=== PATIENT | female | born 1950 | race Caucasian/White ===

== ENCOUNTER 2016-06-19 12:16 | Day surgery (SDC) | payer BC ==
[2016-06-13 16:48] VITALS: BMI 28.3
[~2016-06-19 12:16] MED LIST: BUPIVACAINE HCL/PF 0.5% (5MG/ML) 10 ML VIAL IJ ONE; LIDOCAINE HCL 1%, 10 MG/ML (20ML VIAL) IJ ONE
[2016-06-19] MEDS ORDERED: LIDOCAINE HCL 1%, 10 MG/ML (20ML VIAL) ONE (13:23)
[2016-06-19] MEDS ORDERED: BUPIVACAINE HCL/PF 0.5% (5MG/ML) 10 ML VIAL ONE (13:24)
--- NOTE | 2016-06-19 13:43 | HP ---
Satellite H - Chief Complaint Chief Complaint: right hand pain/numbness - Past Medical History Allergies/Adverse Reactions: Allergies Allergy/AdvReac Type Severity Reaction Status Date / Time levofloxacin [From Levaquin] Allergy "HIVES AND Verified 06/19/16 13:05 TROUBLE BREATHING" SEAFOOD Allergy "THROAT Uncoded 06/19/16 13:05 CLOSES" - Current Medications Current Medications: Medication Instructions Recorded Naproxen [Naprosyn -] 500 mg PO BID #14 tablet 04/15/16 Acetaminophen [Tylenol] 650 mg PO PRN PRN 06/13/16 Insulin Degludec [Tresiba 10 unit SQ ACBK 06/13/16 Flextouch U-100] Insulin Degludec [Tresiba 25 unit SQ ACDIN 06/13/16 Flextouch U-100] Rosuvastatin Calcium [Crestor] 5 mg PO DAILY 06/13/16 Valsartan [Diovan] 160 mg PO DAILY 06/13/16 Hydrocodone/Acetaminophen 1 each PO Q6H #40 tablet MDD 4 06/19/16 [Hydrocodon-Acetaminoph 7.5-325] Satellite Physical Exam - Physical Examination Vital Signs: Vital Signs Period Temp Pulse Resp BP Sys/Monahan Pulse Ox Last 24 Hr 97.9 F 99 16 146/72 98 General Appearance: Well Nourished, Well Developed, Alert & Oriented x3 ENT: Clear Lung: Normal air movement Heart: Regular rate & rhythm Extremities: Other (right hand- + tinels, + phalens EMG + cts) Neurological: Intact, Alert, Oriented Satellite Impression/Plan - Impression/Plan Impression: right cts Operative Procedure: right ctr Date to be Performed: 06/19/16
[2016-06-19] MEDS ORDERED: LIDOCAINE HCL 2% (20ML MULTI-DOSE VIAL) NR ONE (14:01)
[2016-06-19] MEDS ORDERED: ceFAZolin SODIUM 1 GM VIAL ONE (14:01)
[2016-06-19] MEDS ORDERED: MIDAZOLAM HCL 2 MG/2 ML SINGLE DOSE VIAL ONE ×2 (14:02→14:19)
[2016-06-19] MEDS ORDERED: PROPOFOL 20 ML ONE ×2 (14:02→15:27)
[2016-06-19] MEDS ORDERED: ONDANSETRON 4 MG/2 ML VIAL IVPUSH PRN (14:25)
[2016-06-19] MEDS ORDERED: oxyCODONE HCL 5 MG TABLET PO PRN (14:25)
[2016-06-19] MEDS ORDERED: ACETAMINOPHEN 325 MG TABLET (FP) PO PRN (14:25)
[2016-06-19] MEDS ORDERED: LACTATED RINGERS SOLUTION 1,000 ML IV SCH (14:30)
[2016-06-19] MEDS ORDERED: ceFAZolin SODIUM 1 GM VIAL IVPB ONE (14:50)
--- NOTE | 2016-06-19 15:36 | OP ---
Operative Note - Note: Operative Date: 06/19/16 Pre-Operative Diagnosis: right CTS Operation: right CTR, tenosynovectomy Post-Operative Diagnosis: Same as Pre-op Surgeon: Jason Krishnan Anesthesiologist/ELDER ASSISTANT: Leny Mills Anesthesia: General, Local Specimens Removed: tenosynovium Estimated Blood Loss (mls): 0 Blood Volume Replaced (mls): 0 Fluid Volume Replaced (mls): 500 Operative Report Dictated: Yes
--- NOTE | 2016-06-19 16:31 | SPEC ---
DATE OF OPERATION: 06/19/2016 PREOPERATIVE DIAGNOSIS: Right carpal tunnel syndrome. POSTOPERATIVE DIAGNOSIS: Right carpal tunnel syndrome. PROCEDURE: Right carpal tunnel release and tenosynovectomy. SURGEON: Jason Krishnan MD CASTING ROOM HELPER: Leny Mills CRNA SPECIMENS: Tenosynovium, right wrist. DRAINS: None. COMPLICATIONS: None. FLUID REPLACEMENT: 500 mL INDICATIONS: This patient is a 65-year-old femalewith a preoperative diagnosis of a right carpal tunnel syndrome. After understanding the potential risks, complications, alternatives, and benefits of surgical versus nonsurgical treatment, the patient elected to undergo this procedure. DESCRIPTION OF PROCEDURE: The patient was brought to the operating room, peripheral IV placed and intravenous sedation was given. One gram of intravenous Ancef was given. MAC anesthesia was induced. A tourniquet was applied to the right upper arm and the right upper extremity was prepped and draped in sterile fashion. The entire case was done under 3.8 loupe magnification. A marking pen was utilized to mukesh out a longitudinal incision in an already existing skin crease. Twenty mL of 0.5% Marcaine mixed with 1% Lidocaine was injected in and around the surgical incision. The right upper extremity was elevated, exsanguinated with an Esmarch bandage and the tourniquet inflated to 250mm of mercury. A No. 15 scalpel blade was utilized to cut down through the skin. Subcutaneous hemostasis was achieved with the bipolar cautery. Dissection was done through the superficial palmar fascia. Self-retaining retractors were placed into the wound. Under direct visualization, the transverse carpal ligament was transected with a No. 15 scalpel blade, exposing the median nerve and the contents of the carpal tunnel. The distal and proximal extents of the release were completed with a Littler scissor and checked with irrigation and my small finger. They were seen to be complete. Limited dissection was done on the radial side of the median nerve and more extensive dissection was done on the ulnar side of the median nerve. The patients nerve was seen to be quite compressed by epineurium and therefore a limited epineurotomy was performed. A Ragnell retractor was used to gently retract the median nerve in a radial direction. The patient had a lot of tenosynovitis and therefore a limited tenosynovectomy was performed off of all 9 flexor tendons. This was passed off the field as tenosynovium right wrist. The floor of the carpal tunnel was checked. There were no abnormal masses or ganglion cysts. The area was copiously irrigated and washed out and closure begun. Undyed 4-0 Vicryl was used to close the deep dermal layer. Final skin reapproximation was done with horizontal mattress 4-0 nylon sutures. The area was then washed and dried, covered with Xeroform, 4x4s, fluffs between the fingers, Webril and a 4-inch plaster roll was utilized to make a volar splint, which was then wrapped with Ivan and Coban. The tourniquet was taken down after a total tourniquet time of 18 minutes. There were no complications during the case. The patient tolerated the procedure well and was brought to the ambulatory recovery room in stable condition. Ignacio [id number]
[2016-06-19 16:47] VITALS: TEMP 98.4
[2016-06-19 17:40] VITALS: BP 123/67; PULSE 88
--- NOTE | 2016-06-22 12:49 | PATH ---
Surgical Pathology Report Patient Name: IRIS ROMAN [facility]. Rec. #: [id number] /Age/Gender: 1950 (Age: 65) / F Account: [id number] Location: [facility] SURGICAL Taken: 06/19/2016 Received: 06/20/2016 Reported: 06/22/2016 Physicians: Jason Krishnan M.D. Specimen(s) Received RIGHT TENOSYNOVIUM Clinical History Carpel tunnel right syndrome Final Diagnosis SOFT TISSUE, RIGHT HAND, TENOSYNOVIUM, CARPAL TUNNEL RELEASE: TENOSYNOVIAL FIBROCONNECTIVE TISSUE WITH FOCAL MYXOID DEGENERATION. Electronically Signed Ross Reeves M.D. Gross Description Received in formalin, labeled "right tenosynovium" is a 1.6 x 1.0 x 0.3 cm aggregate of mcneill-yellow, irregular portions of soft tissue, consistent with tenosynovium. The specimen is submitted in toto in one cassette. 06/20/201606/20/2016
== END 2016-06-19 17:45 | disposition home or self-care (01) ==
LOC: JASU-SURG 12:16
PROVIDERS: ATTEND Orthopaedic Surgery
PROC: 0LB50ZZ Excision of Right Lower Arm and Wrist Tendon, Open Approach (ICD-10-PCS; 2016-06-19)
PROC: 01N50ZZ Release Median Nerve, Open Approach (ICD-10-PCS; principal; 2016-06-19 14:30)
DX: G56.01 Carpal tunnel syndrome, right upper limb (principal); M65.831 Other synovitis and tenosynovitis, right forearm
CPT/HCPCS: 88304-TC; 94760

== ENCOUNTER 2018-04-23 14:29 | Emergency (ER) | payer OTHER, BC ==
[2018-04-23 14:38] VITALS: BP 144/83; PULSE 110; TEMP 98; BMI 30.8
--- NOTE | 2018-04-23 14:38 | PDOC ---
Rapid Medical Evaluation Time Seen by Provider: 04/23/18 14:36 Medical Evaluation: Allergies Allergy/AdvReac Type Severity Reaction Status Date / Time levofloxacin [From Levaquin] Allergy "HIVES AND Verified 06/19/16 13:05 TROUBLE BREATHING" SEAFOOD Allergy "THROAT Uncoded 06/19/16 13:05 CLOSES" 04/23/18 14:36 The patient presents with: left calf pain, recent air travel 5 days ago, no hx dvt, no sob, no cp On brief exam: - homans, no edema, no erthyema, 2+ pedal pulse the patient was ordered for: duplex of LLE The patient to proceed to the emergency department Discharge Disposition - Diagnosis Pain of left calf - Referrals - Patient Instructions - Post Discharge Activity
--- NOTE | 2018-04-23 15:23 | PDOC ---
History of Present Illness - General Chief Complaint: Pain Stated Complaint: PCP SENT/PAIN Time Seen by Provider: 04/23/18 14:36 Exam Limitations: No Limitations - History of Present Illness Initial Comments: 04/23/18 15:33 Patient was sent from 's office for evaluation of left lower extremity pain. Onset of pain 2 weeks ago in [place] where she returned 5 days ago. States pain has progressively worsened and feels leg is swollen. Was sent for ultrasound of leg to rule out DVT. Reports that no medications Tylenol or Motrin has been helping with pain relief. Denies shortness of breath, fevers, any recent injury or illness. No history of DVT. Occurred: reports: last week Severity: reports: mild, moderate Pain Location: reports: lower extremity (lef tleg) Loss of Consciousness: no loss of consciousness Associated Symptoms (Fall): denies symptoms Past History - Travel Traveled outside of the country in the last 30 days: No Close contact w/someone who was outside of country & ill: No - Past Medical History Allergies/Adverse Reactions: Allergies Allergy/AdvReac Type Severity Reaction Status Date / Time levofloxacin [From Levaquin] Allergy "HIVES AND Verified 04/23/18 14:38 TROUBLE BREATHING" SEAFOOD Allergy "THROAT Uncoded 04/23/18 14:38 CLOSES" Home Medications: Ambulatory Orders Naproxen [Naprosyn -] 500 mg PO BID #14 tablet 04/15/16 Acetaminophen [Tylenol] 650 mg PO PRN PRN 06/13/16 Insulin Degludec [Tresiba Flextouch U-100] 10 unit SQ ACBK 06/13/16 Insulin Degludec [Tresiba Flextouch U-100] 25 unit SQ ACDIN 06/13/16 Rosuvastatin Calcium [Crestor] 5 mg PO DAILY 06/13/16 Valsartan [Diovan] 160 mg PO DAILY 06/13/16 Hydrocodone/Acetaminophen [Hydrocodon-Acetaminoph 7.5-325] 1 each PO Q6H #40 tablet MDD 4 06/19/16 Cyclobenzaprine HCl [Flexeril -] 10 mg PO TID 04/23/18 Methylprednisolone [Medrol Dose Garry] 4 mg PO ASDIR 04/23/18 COPD: No Diabetes: Yes GI Disorders: Yes (DIVERTICULOSIS) HTN: Yes Hypercholesterolemia: Yes - Surgical History Cholecystectomy: Yes Orthopedic Surgery: Yes (BILATERAL ARTHROSCOPY KNEE) - Suicide/Smoking/Psychosocial Hx Smoking Status: Yes Smoking History: Former smoker Have you smoked in the past 12 months: Yes Number of Cigarettes Smoked Daily: 10 If you are a former smoker, when did you quit?: 2017 Information on smoking cessation initiated: Yes 'Breaking Loose' booklet given: 04/23/18 Hx Alcohol Use: No Drug/Substance Use Hx: No Substance Use Type: None Hx Substance Use Treatment: No Review of Systems - Review of Systems Able to Perform ROS?: Yes Is the patient limited Vincentian proficient: Yes Constitutional: Yes: Symptoms Reported, See HPI. No: Fever, Malaise Musculoskeletal: Yes: Symptoms Reported, See HPI, Joint Swelling, Muscle Pain Integumentary: Yes: Symptoms Reported, See HPI, Erythema, Lumps All Other Systems: Reviewed and Negative *Physical Exam - Vital Signs Last Vital Signs Temp Pulse Resp BP Pulse Ox 98 F 110 H 18 144/83 100 04/23/18 14:36 04/23/18 14:36 04/23/18 14:36 04/23/18 14:36 04/23/18 14:36 - Physical Exam General Appearance: Yes: Nourished, Appropriately Dressed, Apparent Distress, Mild Distress HEENT: positive: ARMANDO, Normal ENT Inspection, TMs Normal, Pharynx Normal Neck: positive: Supple. negative: Tender Respiratory/Chest: positive: Lungs Clear. negative: Normal Breath Sounds Gastrointestinal/Abdominal: positive: Soft. negative: Normal Bowel Sounds Musculoskeletal: positive: Normal Inspection. negative: CVA Tenderness Extremity: positive: Normal Capillary Refill, Normal Inspection, Normal Range of Motion, Other (no cording/ erythema/ masses/ Ambulatory). negative: Pedal Edema, Swelling, Erythema Integumentary: positive: Normal Color, Dry, Warm Neurologic: positive: calculation clerk II-XII NML intact, Fully Oriented, Alert, Normal Mood/ Affect, Normal Response, Motor Strength 5/5 Progress Note - Progress Note Progress Note: Left lower extremity pain, ultrasound negative for DVT or Levi's cyst noted. Patient refuses NSAIDs for pain relief has antispasmodic and anti- inflammatories at home. Will refer to orthopedist for further evaluation Medical Decision Making - Medical Decision Making 04/23/18 16:28 Radiology report negative for DVT or cyst. Normal *DC/Admit/Observation/Transfer Diagnosis at time of Disposition: Pain of left calf - Discharge Dispostion Disposition: HOME Condition at time of disposition: Stable Decision to Admit order: No - Referrals Referrals: Temo Jorgensen MD [Primary Care Provider] - James Carbajal MD [Staff Physician] - - Patient Instructions Printed Discharge Instructions: DI for Muscle Strain Additional Instructions: Rest, ice to area on and off for 15 minutes 4-6 times a day Avoid heavy lifting or exercise until pain and swelling is resolved or until further directed Keep area highly elevated to reduce swelling Use splints/Garett wrap as directed Followup with orthopedist in one to 2 days if not improving, if significantly improved may wait one week for followup with orthopedist May use ibuprofen 2-200 mg tablets every 6 hours as needed for pain - Post Discharge Activity Forms/Work/School Notes: Back to Work
[2018-04-23] MEDS ORDERED: KETOROLAC TROMETHAMINE 60 MG/2 ML VIAL IM ONE (15:32)
[2018-04-23] MEDS ORDERED: KETOROLAC TROMETHAMINE 60 MG/2 ML VIAL ONE (15:36)
== END 2018-04-23 16:32 | disposition home or self-care (01) ==
LOC: JERFT 14:29
PROC: 3E0233Z Introduction of Anti-inflammatory into Muscle, Percutaneous Approach (ICD-10-PCS; principal; 2018-04-23)
DX: M79.662 Pain in left lower leg (principal); I10 Essential (primary) hypertension; E78.00 Pure hypercholesterolemia, unspecified; Z87.891 Personal history of nicotine dependence; E11.9 Type 2 diabetes mellitus without complications; K57.90 Diverticulosis of intestine, part unspecified, without perforation or abscess without bleeding
CPT/HCPCS: 93971-TC; 96372; 99281-25

== ENCOUNTER 2018-06-17 16:41 | Inpatient (IN) | payer OTHER, BC ==
--- NOTE | 2018-06-17 17:04 | PDOC ---
Rapid Medical Evaluation Time Seen by Provider: 06/17/18 17:02 Medical Evaluation: Allergies Allergy/AdvReac Type Severity Reaction Status Date / Time levofloxacin [From Levaquin] Allergy "HIVES AND Verified 06/17/18 17:02 TROUBLE BREATHING" SEAFOOD Allergy "THROAT Uncoded 06/17/18 17:02 CLOSES" 06/17/18 17:02 The patient presents with a chief complaint of: fever, cough x 3 days, went to [facility], cxr w/ melissa infiltrate, had influenza/pneumonia vacc I have performed a brief in-person evaluation of this patient: Pertinent physical exam findings: 117, 100.3, lcta, I have ordered the following: influenza, labs, The patient will proceed to the ED for further evaluation. 06/17/18 17:13 Discharge Disposition - Diagnosis Fever - Referrals Referrals: Temo Jorgensen MD [Primary Care Provider] - - Patient Instructions - Post Discharge Activity
--- NOTE | 2018-06-17 18:10 | PDOC ---
History of Present Illness - General Chief Complaint: Respiratory Stated Complaint: SENT BY PCP Time Seen by Provider: 06/17/18 17:02 Past History - Past Medical History Allergies/Adverse Reactions: Allergies Allergy/AdvReac Type Severity Reaction Status Date / Time levofloxacin [From Levaquin] Allergy "HIVES AND Verified 06/17/18 17:02 TROUBLE BREATHING" SEAFOOD Allergy "THROAT Uncoded 06/17/18 17:02 CLOSES" Home Medications: Ambulatory Orders Acetaminophen [Tylenol] 650 mg PO PRN PRN 06/13/16 Insulin Degludec [Tresiba Flextouch U-100] 50 unit SQ BID 06/13/16 Rosuvastatin Calcium [Crestor] 5 mg PO DAILY 06/13/16 Valsartan [Diovan] 160 mg PO DAILY 06/13/16 Methotrexate Sodium [Methotrexate] mg PO ASDIR 06/17/18 COPD: No Diabetes: Yes GI Disorders: Yes (DIVERTICULOSIS) HTN: Yes Hypercholesterolemia: Yes - Surgical History Cholecystectomy: Yes Orthopedic Surgery: Yes (BILATERAL ARTHROSCOPY KNEE) - Suicide/Smoking/Psychosocial Hx Smoking Status: Yes Smoking History: Former smoker Have you smoked in the past 12 months: No Number of Cigarettes Smoked Daily: 10 If you are a former smoker, when did you quit?: 2018 Information on smoking cessation initiated: No 'Breaking Loose' booklet given: 04/23/18 Hx Alcohol Use: No Drug/Substance Use Hx: No Substance Use Type: None Hx Substance Use Treatment: No *Physical Exam - Vital Signs Last Vital Signs Temp Pulse Resp BP Pulse Ox 100.3 F H 116 H 22 H 127/55 L 97 06/17/18 17:09 06/17/18 17:09 06/17/18 17:09 06/17/18 17:09 06/17/18 17:09 Moderate Sedation - Procedure Monitoring Vital Signs: Procedure Monitoring Vital Signs Temperature 100.3 F H 06/17/18 17:09 Pulse Rate 116 H 06/17/18 17:09 Respiratory Rate 22 H 06/17/18 17:09 Blood Pressure 127/55 L 06/17/18 17:09 O2 Sat by Pulse Oximetry (%) 97 06/17/18 17:09 *DC/Admit/Observation/Transfer Diagnosis at time of Disposition: Fever - Referrals Referrals: Temo Jorgensen MD [Primary Care Provider] - - Patient Instructions - Post Discharge Activity
[2018-06-17] MEDS ORDERED: SODIUM CHLORIDE 1,000 ML IV STA (18:13)
[2018-06-17] MEDS ORDERED: ACETAMINOPHEN 1000 MG/100 ML VIAL (NON FORMULARY) IVPB ONE (18:13)
[2018-06-17 20:05] LABS: VENOUS PC02 43.6 mmHg (38-52); VENOUS PH 7.34 (7.32-7.42); VENOUS PO2 44.3 mmHg (28-48)
[2018-06-17 20:06] LABS: BASO % 0.3 % (0-2.0); EOS % 0.5 % (0-4.5); HEMATOCRIT 40.5 % (32.4-45.2); MCH 33.3 pg (25.7-33.7); MCHC 34.7 g/dl (32.0-36.0); MEAN CELL VOLUME 95.8 fl (80-96); MEAN PLT VOLUME 9.2 fl (7.5-11.1); MONO % 5.9 % (3.8-10.2); NEUT % 71.3 % (42.8-82.8); PLATELET COUNT 306 K/MM3 (134-434); RBC 4.22 M/mm3 (3.60-5.2); RDW 14.4 % (11.6-15.6); WHITE BLOOD COUNT 15.4 K/mm3 (4.0-10.0)
[2018-06-17 20:30] LABS: ALBUMIN 3.8 g/dl (3.4-5.0); ALK PHOS 113 U/L (45-117); ANION GAP 8 MMOL/L (8-16); BILIRUBIN,TOTAL 0.3 mg/dL (0.2-1); BLOOD UREA NITROGEN 14 mg/dL (7-18); CALCIUM 9.1 mg/dL (8.5-10.1); CHLORIDE 103 mmol/L (98-107); CO2 25 mmol/L (21-32); CREATININE 0.8 mg/dL (0.55-1.3); GLUCOSE,RANDOM 166 mg/dL (74-106); POTASSIUM 4.6 mmol/L (3.5-5.1); SGOT/AST 22 U/L (15-37); SGPT/ALT 22 U/L (13-61); SODIUM 136 mmol/L (136-145)
--- NOTE | 2018-06-17 20:39 | PDOC ---
History of Present Illness - General Chief Complaint: Respiratory Stated Complaint: SENT BY PCP Time Seen by Provider: 06/17/18 17:02 History Source: Patient Exam Limitations: No Limitations - History of Present Illness Initial Comments: 67 yo F w a pmh of diabetes, HTN, HCL, diverticulosis presents to the ED after an episode of hemoptysis this morning. She has a history of some "hole in her lung" which she says is the result of her prior smoking history. She has been coughing for the past 3 days but today she coughed up blood so went to [facility] and had X-rays taken. The X-rays showed "pleural thickening at both apices with increased interstitial markings to the upper lobes. Alveolar infiltrate vs mass in the left upper lobe. Neoplasm is to be excluded." She also recently had a CT scan performed here in this hospital [address] showed "a cavitary right apical nodule that now measures approximately 2.0 x 1.4 x 1.1 cm which has not significantly changed from 02/19/2018." After [facility] saw her X-rays they advised her to come to the ER to be evaluated for the hemoptysis and to have the X-ray findings evaluated for lung cancer. Patient has had a fever associated with chest pain and coughing for the past 3 days. She endorses SOB, Chest pain, difficulty breathing. Denies abdominal pain, dysuria, frequency, urgency, headache, neck pain, blurry vision, diarrhea or constipation. PCP: Dr. Jorgensen Fuse Cutter: Dr. Albrecht PSH: Cholecystectomy, bilateral blaze arthrscopy Social Hx: Former heavy smoker, denies etoh or other substance abuse. Allergies: Levofloxacin, seafood Past History - Past Medical History Allergies/Adverse Reactions: Allergies Allergy/AdvReac Type Severity Reaction Status Date / Time levofloxacin [From Levaquin] Allergy "HIVES AND Verified 06/17/18 17:02 TROUBLE BREATHING" SEAFOOD Allergy "THROAT Uncoded 06/17/18 17:02 CLOSES" Home Medications: Ambulatory Orders Acetaminophen [Tylenol] 650 mg PO PRN PRN 06/13/16 Insulin Degludec [Tresiba Flextouch U-100] 50 unit SQ BID 06/13/16 Rosuvastatin Calcium [Crestor] 5 mg PO DAILY 06/13/16 Valsartan [Diovan] 160 mg PO DAILY 06/13/16 Methotrexate Sodium [Methotrexate] mg PO ASDIR 06/17/18 COPD: No Diabetes: Yes GI Disorders: Yes (DIVERTICULOSIS) HTN: Yes Hypercholesterolemia: Yes - Surgical History Cholecystectomy: Yes Orthopedic Surgery: Yes (BILATERAL ARTHROSCOPY KNEE) - Suicide/Smoking/Psychosocial Hx Smoking Status: Yes Smoking History: Former smoker Have you smoked in the past 12 months: No Number of Cigarettes Smoked Daily: 10 If you are a former smoker, when did you quit?: 2018 Information on smoking cessation initiated: No 'Breaking Loose' booklet given: 04/23/18 Hx Alcohol Use: No Drug/Substance Use Hx: No Substance Use Type: None Hx Substance Use Treatment: No Review of Systems - Review of Systems Comments:: CONSTITUTIONAL: Present: Fever, chills, fatigue EYES: Absent: visual changes ENT: Present: Ear pain Absent: no sore throat CARDIOVASCULAR: Present: chest pain Absent: no palpitations RESPIRATORY: Present: cough, SOB GI: Absent: abdominal pain, no nausea, no vomiting, no constipation, no diarrhea GENITOURINARY: Absent: dysuria, no frequency, no hematuria MUSKULOSKELETAL: Absent: back pain, no arthralgia, no myalgia SKIN: Absent: rash NEURO: Absent: headache *Physical Exam - Vital Signs Last Vital Signs Temp Pulse Resp BP Pulse Ox 100.3 F H 116 H 22 H 127/55 L 97 06/17/18 17:09 06/17/18 17:09 06/17/18 17:09 06/17/18 17:09 06/17/18 17:09 - Physical Exam General Appearance: Yes: Nourished, Appropriately Dressed, Obese. No: Apparent Distress HEENT: positive: EOMI, ARMANDO Neck: positive: Supple. negative: Rigid Respiratory/Chest: positive: Rapid RR, Crackles (Left). negative: Lungs Clear, Normal Breath Sounds Cardiovascular: positive: S1, S2, Tachycardia Vascular Pulses: Dorsalis-Pedis (R): 2+, Doralis-Pedis (L): 2+ Gastrointestinal/Abdominal: positive: Normal Bowel Sounds, Soft. negative: Guarding, Rebound Rectal Exam: positive: deferred Musculoskeletal: positive: Normal Inspection. negative: CVA Tenderness Extremity: positive: Normal Capillary Refill, Normal Inspection, Normal Range of Motion Integumentary: positive: Normal Color, Dry, Warm Neurologic: positive: immunopathologist II-XII NML intact, Fully Oriented, Alert, Normal Mood/ Affect, Normal Response, Motor Strength 5/5 Moderate Sedation - Procedure Monitoring Vital Signs: Procedure Monitoring Vital Signs Temperature 100.3 F H 06/17/18 17:09 Pulse Rate 116 H 06/17/18 17:09 Respiratory Rate 22 H 06/17/18 17:09 Blood Pressure 127/55 L 06/17/18 17:09 O2 Sat by Pulse Oximetry (%) 97 06/17/18 17:09 ED Treatment Course - LABORATORY CBC & Chemistry Diagram: 06/17/18 19:50 06/17/18 19:50 - ADDITIONAL ORDERS Additional order review: Laboratory Results 06/17/18 06/17/18 19:50 19:50 VBG pH 7.34 POC VBG pCO2 43.6 POC VBG pO2 44.3 Mixed VBG HCO3 23.0 Sodium 136 Potassium 4.6 Chloride 103 Carbon Dioxide 25 Anion Gap 8 BUN 14 Creatinine 0.8 Creat Clearance w eGFR > 60 Random Glucose 166 H Calcium 9.1 Total Bilirubin 0.3 AST 22 ALT 22 Alkaline Phosphatase 113 Total Protein 8.0 Albumin 3.8 06/17/18 19:50 RBC 4.22 MCV 95.8 MCHC 34.7 RDW 14.4 MPV 9.2 Neutrophils % 71.3 D Lymphocytes % 22.0 D Monocytes % 5.9 Eosinophils % 0.5 Basophils % 0.3 - Medications Given in the ED: ED Medications Discontinued Medications Generic Name Dose Route Start Last Admin Trade Name Freq PRN Reason Stop Dose Admin Acetaminophen 1,000 mg 06/17/18 18:13 06/17/18 20:03 Ofirmev Injection - IVPB 06/17/18 18:14 1,000 mg ONCE ONE Administration Sodium Chloride 1,000 mls @ 1,000 mls/hr 06/17/18 18:13 06/17/18 20:03 Normal Saline - IV 06/17/18 19:12 1,000 mls/hr ASDIR STA Administration Medical Decision Making - Medical Decision Making 67 yo F w a pmh of diabetes, HTN, HCL, diverticulosis presents to the ED after an episode of hemoptysis this morning. - CXR and Cat scans show she has a nodule in lung - Now she is febrile, tachycardic, tachypnic and likely has a PNA. DDx IBNLT: PNA, TB, Lung cancer, PE, Bronchitis, URI, sepsis Plan: Labs, Urine, ekg, CXR, admit for pulmonary consult and rule out malignancy. WBC elevated to 15.3 Lactic acid elevated to 2.3 Given the fever, tachycardia, tachypnea, elevated WBC and lactic acid this patient is likely septic with PNA as her course. - Will start empiric Abx with ceftriaxone and azithromycin and then admit to hospital for further care and pulmonary workup. *DC/Admit/Observation/Transfer Diagnosis at time of Disposition: Fever, PNA (pneumonia), Cavitary lesion of lung, Hemoptysis - Discharge Dispostion Decision to Admit order: Yes - Referrals Referrals: Temo Jorgensen MD [Primary Care Provider] - - Patient Instructions - Post Discharge Activity
[2018-06-17] MEDS ORDERED: AZITHROMYCIN 500 MG TABLET PO ONE (21:13)
[2018-06-17] MEDS ORDERED: CEFTRIAXONE 1,000 MG in DEXTROSE 5%-WATER - 50 ML IVPB ONE (21:13)
[2018-06-17 21:19] LABS: N-TERMINAL BNP 50.8 pg/ml (5-125)
[2018-06-17] MEDS ORDERED: CEFTRIAXONE 1 GM/50 ML BAG ONE (21:47)
[2018-06-17] MEDS ORDERED: AZITHROMYCIN IVPB 500 MG/250 ML BAG IVPB ONE (21:47)
[2018-06-17 22:04] LABS: URINE APPEARANCE CLEAR; URINE BILIRUBIN NEGATIVE (<2.0 mg/dL); URINE COLOR LTYELLOW; URINE GLUCOSE (UA) 3+ (NEGATIVE); URINE KETONE NEGATIVE (NEGATIVE); URINE LEUK ESTERASE NEGATIVE (NEGATIVE); URINE NITRITE NEGATIVE (NEGATIVE); URINE PROTEIN NEGATIVE (NEGATIVE); URINE UROBILINOGEN NEGATIVE mg/dL (0.2-1.0)
--- NOTE | 2018-06-17 22:37 | PDOC ---
Attending Attestation - Resident Resident Name: Pierre Mark - ED Attending Attestation I have performed the following: I have examined & evaluated the patient, The case was reviewed & discussed with the resident, I agree w/resident's findings & plan - HPI HPI: 06/17/18 22:31 67 year old female with past medical history of hypertension, hyperlipidemia, diverticulosis with complaints of hemoptysis, productive cough and fever for the past 3 days. Patient is being overseen by Dr. Pretty for cavitary lung lesion. Went to [facility] earlier for her complaints and had an x-ray done and patient was advised to come to the ED to rule out neoplasm. Reports associated chest pain, mild SOB. Denies any chills, body aches, NVD, or urinary complaints. Today at [facility] and had X-rays taken. The X-rays showed "pleural thickening at both apices with increased interstitial markings to the upper lobes. Alveolar infiltrate vs mass in the left upper lobe. Neoplasm is to be excluded." She also recently had a CT scan performed [place] [address] showed "a cavitary right apical nodule that now measures approximately 2.0 x 1.4 x 1.1 cm which has not significantly changed from 02/19/2018." After [facility] saw her X-rays they advised her to come to the ER to be evaluated for the hemoptysis - Physicial Exam PE: 06/17/18 22:31 NAD, well appearing, PERRL, EOMI, MMM, nl conjunctiva, anicteric; no oral lesions. neck supple. lungs clear, +tachycardia. abdomen soft nontender. COLE x4 , no focal neuro deficits. No peripheral edema. normal color for ethnicity, WWP. - Medical Decision Making 06/17/18 22:32 See HPI for details Vital signs reviewed, +fever, tachycardia. no hypoxia, no respiratory distress Prior notes reviewed, including admissions, discharges and consultations. prior CT scan in late May with pleural thickening and lung nodules, being followed by Dr Pretty. dDx pneumonia, bronchiectasis, lung mass/malignancy, influenza, dehydration, electrolyte/metabolic derangements, viral infection. myocarditis, pericarditis. laboratory results and imaging reviewed, basic labs and lytes wnl, notable for +lactic acidosis and leukocytosis 15K, changed from prior. suspecting infection/ dehydration. UA neg CXR_left upper lobe scarring/thickening noted, prior CT as above. Cardiac panel_trop neg, reassuring. EKG normal sinus rhythm, no interval abnormalities, narrow QRS, ST and T wave segments and morphology normal. Nonspecific T wave abnormalities ED course: given antipyretics, IVF hydration and azithromycin/ceftriaxone for CAP coverage. suspecting infection/pna with clinical presentation and findings. Blood cultures, sputum cs pending, infectious workup. repeat VS, normalizing. Dispo: Admit for suspected clinical pneumonia.. Discussed results and management plan with pt and family member at bedside, agree with impression and plan 06/17/18 22:40 Heart Score/ECG Review - ECG Impressions Normal ECG: No Comment:: 06/17/18 22:39 EKG normal sinus rhythm, no interval abnormalities, narrow QRS, ST and T wave segments and morphology normal. Nonspecific T wave abnormalities
--- NOTE | 2018-06-17 23:20 | PN ---
Teaching Attending Note Name of Resident: Dimas Pinto ATTENDING PHYSICIAN STATEMENT I saw and evaluated the patient. I reviewed the resident's note and discussed the case with the resident. I agree with the resident's findings and plan as documented. SUBJECTIVE: 67 year old female with past medical history of hypertension, hyperlipidemia, diverticulosis with complaints of epistaxis and hemoptysis, productive cough and fever for the past 3 days. Patient is being overseen by Dr. Pretty for cavitary lung lesion. Went to [facility] earlier for her complaints and had an x- ray done and patient was advised to come to the ED to rule out neoplasm. Reports associated chest pain, mild SOB. Denies any chills, body aches, NVD, or urinary complaints. Today at [facility] and had X-rays taken. The X-rays showed "pleural thickening at both apices with increased interstitial markings to the upper lobes. Alveolar infiltrate vs mass in the left upper lobe. Neoplasm is to be excluded." She also recently had a CT scan performed [place] [address] showed "a cavitary right apical nodule that now measures approximately 2.0 x 1.4 x 1.1 cm which has not significantly changed from 02/19/2018." After [facility] saw her X-rays they advised her to come to the ER to be evaluated for the hemoptysis OBJECTIVE: Alert Vital Signs Period Temp Pulse Resp BP Sys/[place] Pulse Ox Last 24 Hr 98.3 F-100.3 F 94-116 19-22 127-127/55-84 97-97 HEENT: No Jaundice, eye redness or discharge, PERRLA, EOMI. Normocephalic, atraumatic. External ears are normal and hearing is grossly intact. No nasal discharge. Neck: Supple, nontender. No palpable adenopathy or thyromegaly. No JVD Chest: Good effort. Clear to auscultation. Left lateral chest wall tenderness. Heart: Regular. No S3, rub or murmur Abdomen: Not distended, soft, nontender and no HSM. No rebound or guarding. Normoactive bowel sounds. Ext: Peripheral pulses intact. No leg edema. Skin: Warm and dry. No petechiae, rash or ecchymosis. Neuro: Alert. Oriented x3. CN 2-12 grossly intact. Sensation grossly intact in all four extremities and DTR are symmetric. Home Medications Medication Instructions Recorded Acetaminophen [Tylenol] 650 mg PO PRN PRN 06/13/16 Insulin Degludec [Tresiba 50 unit SQ BID 06/13/16 Flextouch U-100] Rosuvastatin Calcium [Crestor] 5 mg PO DAILY 06/13/16 Valsartan [Diovan] 160 mg PO DAILY 06/13/16 Methotrexate Sodium [Methotrexate] mg PO ASDIR 06/17/18 Abnormal Lab Results 06/17/18 06/17/18 06/17/18 19:50 19:50 19:50 WBC 15.4 H Absolute Neuts (auto) 11.0 H Random Glucose 166 H Lactic Acid 2.4 H* Urine Glucose (UA) 06/17/18 21:50 WBC Absolute Neuts (auto) Random Glucose Lactic Acid Urine Glucose (UA) 3+ H ASSESSMENT AND PLAN: 1. Atypical Pneumonia/Rule out TB - Patient being investigated for cavitary lung lesions noted on chest CT and CXR. No new acute infiltrate on CXR, but she is febrile and has leukocytosis as well as lactic acidosis. Flu swab is negative. Will send urine for legionella antigen and treat with rocephin and azithromycin. Treat with IV ringers lactate and trend lactic acid. She is on methotrexate and humira and TB has to be excluded. Got BCG in her twenties. Will send QuantiFERON TB test. Pulmonary consult, sputum for AFB and possibly bronchoscopy to rule out malignancy/TB. Place on airborne isolation. 2. DM - For now, we will hold the home diabetes drugs and implement sliding scale insulin regimen. Provide comprehensive diabetes care with patient teaching and counseling about the importance of euglycemia, eye care and foot care. 3. DVT prophylaxis - Lovenox 40 mg SQ q 24 hours. 4. Advance directives - Full code
[2018-06-17] MEDS ORDERED: LACTATED RINGERS SOLUTION 1,000 ML/1,000 ML INFUS.BAG IV SCH (23:45)
--- NOTE | 2018-06-18 00:18 | HP ---
CHIEF COMPLAINT: Shortness of breath, lateral chest discomfort PCP: Dr. Jorgensen HISTORY OF PRESENT ILLNESS: 67yo F with PMHx HTN, HLD, RA, DM who presents with complaints of epistaxis and hemoptysis after waking this morning about 1teaspoon to 1 tablespoon in quantity. She reports her epistaxis resolving shortly after using tissues, however she notes some brown sputum that she exporated late. She reports going to [facility] who suggested going to the ER due to their findings on CXR and the possibility of lung Ca. Pt reports she is being seen by her technical spec Dr. Pretty who diagnosed her with a cavitary YUNIOR lesion in January of this year. She reports having a Chest CT being performed on 06/12 which showed a stable cavitary lesion and new nodule in the RLL. In addition, she reports starting Amanda for her RA for which she has taken several doses. Her last dose was 2 weeks ago and she was due again on 06/18/2018. Currently she has mild posterolateral chest wall discomfort with radiation. She denies any current shortness of breath while resting and denies any jaw claudication, diaphoresis, and radiation of her chest discomfort. Of note, pt is also complaining of R ear discomfort without any changes in hearing. PAST MEDICAL HISTORY: HTN HLD DM RA PAST SURGICAL HISTORY: Cholecystectomy 10+ years ago Carpal tunnel release (2017) Social History: Smoking: Former smoker, "many years" 1/2ppd; quit this year Alcohol: Previous binge drinker over 20 years ago, no use now Drugs: None Lives at home with brother; uses AC while sleeping Family History: Allergies levofloxacin [From Levaquin] Allergy (Verified 06/17/18 17:02) "HIVES AND TROUBLE BREATHING" SEAFOOD Allergy (Uncoded 06/17/18 17:02) "THROAT CLOSES" HOME MEDICATIONS: Home Medications Medication Instructions Recorded Acetaminophen [Tylenol] 650 mg PO PRN PRN 06/13/16 Insulin Degludec [Tresiba 50 unit SQ BID 06/13/16 Flextouch U-100] Rosuvastatin Calcium [Crestor] 5 mg PO DAILY 06/13/16 Valsartan [Diovan] 160 mg PO DAILY 06/13/16 Methotrexate Sodium [Methotrexate] mg PO ASDIR 06/17/18 REVIEW OF SYSTEMS As per HPI PHYSICAL EXAMINATION Vital Signs - 24 hr 06/17/18 06/17/18 17:09 22:31 Temperature 100.3 F H 98.3 F Pulse Rate 116 H Pulse Rate [ 94 H Right Radial] Respiratory 22 H 19 Rate Blood Pressure 127/55 L Blood Pressure 127/84 [Right Arm] O2 Sat by Pulse 97 97 Oximetry (%) GENERAL: NAD, Awake, alert, and fully oriented, laying in bed HEENT: NC/AT, sclera anicteric, JONNY, dried blood in L nare noted, R TM obscured with erythematous changes without overt peforation, no erythema or exudates in posterior oropharynx, NECK: No lymphadenopathy, no JVD, soft LUNGS: CTA bilaterally. No wheezes, and no crackles. No accessory muscle use. 98 % on RA CHEST: Reproducible TTP on posterolateral L chest wall, no ecchymotic areas HEART: RRR, normal S1 and S2 without murmur ABDOMEN: Soft, NT/ND, normoactive bowel sounds, no guarding MUSCULOSKELETAL: No CVA tenderness. EXTREMITIES: 2+ DP pulses, No peripheral edema. PSYCHIATRIC: Cooperative. Good eye contact. Appropriate mood and affect. SKIN: Warm, dry, no rashes or lesions noted Laboratory Results - last 24 hr 06/17/18 06/17/18 06/17/18 19:50 19:50 19:50 WBC 15.4 H RBC 4.22 Hgb 14.0 Hct 40.5 MCV 95.8 MCH 33.3 MCHC 34.7 RDW 14.4 Plt Count 306 D MPV 9.2 Absolute Neuts (auto) 11.0 H Neutrophils % 71.3 D Lymphocytes % 22.0 D Monocytes % 5.9 Eosinophils % 0.5 Basophils % 0.3 Nucleated RBC % 0 VBG pH POC VBG pCO2 POC VBG pO2 Mixed VBG HCO3 Sodium 136 Potassium 4.6 Chloride 103 Carbon Dioxide 25 Anion Gap 8 BUN 14 Creatinine 0.8 Creat Clearance w eGFR > 60 Random Glucose 166 H Lactic Acid 2.4 H* Calcium 9.1 Total Bilirubin 0.3 AST 22 ALT 22 Alkaline Phosphatase 113 Troponin I B-Natriuretic Peptide Total Protein 8.0 Albumin 3.8 Urine Color Urine Appearance Urine pH Ur Specific [place] Urine Protein Urine Glucose (UA) Urine Ketones Urine Blood Urine Nitrite Urine Bilirubin Urine Urobilinogen Ur Leukocyte Esterase Influenza A (Rapid) Influenza B (Rapid) 06/17/18 06/17/18 06/17/18 19:50 19:50 19:50 WBC RBC Hgb Hct MCV MCH MCHC RDW Plt Count MPV Absolute Neuts (auto) Neutrophils % Lymphocytes % Monocytes % Eosinophils % Basophils % Nucleated RBC % VBG pH 7.34 POC VBG pCO2 43.6 POC VBG pO2 44.3 Mixed VBG HCO3 23.0 Sodium Potassium Chloride Carbon Dioxide Anion Gap BUN Creatinine Creat Clearance w eGFR Random Glucose Lactic Acid Calcium Total Bilirubin AST ALT Alkaline Phosphatase Troponin I < 0.02 B-Natriuretic Peptide 50.8 Total Protein Albumin Urine Color Urine Appearance Urine pH Ur Specific [place] Urine Protein Urine Glucose (UA) Urine Ketones Urine Blood Urine Nitrite Urine Bilirubin Urine Urobilinogen Ur Leukocyte Esterase Influenza A (Rapid) Negative Influenza B (Rapid) Negative 06/17/18 21:50 WBC RBC Hgb Hct MCV MCH MCHC RDW Plt Count MPV Absolute Neuts (auto) Neutrophils % Lymphocytes % Monocytes % Eosinophils % Basophils % Nucleated RBC % VBG pH POC VBG pCO2 POC VBG pO2 Mixed VBG HCO3 Sodium Potassium Chloride Carbon Dioxide Anion Gap BUN Creatinine Creat Clearance w eGFR Random Glucose Lactic Acid Calcium Total Bilirubin AST ALT Alkaline Phosphatase Troponin I B-Natriuretic Peptide Total Protein Albumin Urine Color Ltyellow Urine Appearance Clear Urine pH 5.0 Ur Specific [place] 1.026 Urine Protein Negative Urine Glucose (UA) 3+ H Urine Ketones Negative Urine Blood Negative Urine Nitrite Negative Urine Bilirubin Negative Urine Urobilinogen Negative Ur Leukocyte Esterase Negative Influenza A (Rapid) Influenza B (Rapid) ASSESSMENT/PLAN: Cavitary lesion Leukocytosis Lactic acidosis Otitis Media Costochondritis DM HTN Rheumatoid Arthritis --Blood most likely epistaxis event with residual in sputum however cannot r/o blood-tinged sputum from lung process --DDx: Bronchiectasis vs. Lung Ca. vs. TB (given Amanda and methotrexate use and cavitary lesion) --Quantiferon gold ordered; if positive can collect sputum for AFB culturing --Isolation precautions in interim --Pulmonary consult --Suspect lactic acidosis as Type B given high likelihood for Lung Ca, however will trend --LR @100cc/hr for one bag --Received dose of Rocephin and Zithromax in E --Augmentin 500-125 q12h PO for OM --Urine Legionella antigen ordered given low-normal Na and AC use --Tylenol 650mg PRN for pain and fever --ISS coverage and BGM ACHS FEN: LR@100cc/hr x1L No electrolyte abnormalities Diabetic diet PPX: DVT - Lovenox 40mg qDaily Dispo: Can observe in M/S for now until pulm consult for further inpatient vs. outpatient workup Case discussed with Dr. Iman Pinto, DO - IM PGY-2 Visit type - Emergency Visit Emergency Visit: Yes ED Registration Date: 06/17/18 Care time: The patient presented to the Emergency Department on the above date and was hospitalized for further evaluation of their emergent condition. - New Patient This patient is new to me today: Yes Date on this admission: 06/18/18 - Critical Care Critical Care patient: No
[2018-06-18 05:12] LABS: HEMATOCRIT 36.6 % (32.4-45.2); MCH 31.3 pg (25.7-33.7); MCHC 32.7 g/dl (32.0-36.0); MEAN CELL VOLUME 95.8 fl (80-96); PLATELET COUNT 248 K/MM3 (134-434); RBC 3.82 M/mm3 (3.60-5.2); RDW 14.2 % (11.6-15.6); WHITE BLOOD COUNT 11.6 K/mm3 (4.0-10.0)
[2018-06-18 05:39] LABS: ANION GAP 7 MMOL/L (8-16); BLOOD UREA NITROGEN 11 mg/dL (7-18); CALCIUM 8.3 mg/dL (8.5-10.1); CHLORIDE 107 mmol/L (98-107); CO2 24 mmol/L (21-32); CREATININE 0.7 mg/dL (0.55-1.3); GLUCOSE,RANDOM 117 mg/dL (74-106); POTASSIUM 4.1 mmol/L (3.5-5.1); SODIUM 138 mmol/L (136-145)
[2018-06-18] MEDS: INSULIN SLIDING SCALE (NOVOLOG) 1 VIAL SQ SCH ×4 (06:51→22:51)
[2018-06-18] MEDS ORDERED: AMOX TR/POT CLAV 500MG/125MG TABLETS (FP) PO SCH (08:00)
[2018-06-18] MEDS ORDERED: AMOX TR/POT CLAV 500MG/125MG TABLETS (FP) ONE (08:09)
--- NOTE | 2018-06-18 09:04 | PN ---
Progress Note, Physician Chief Complaint: EVENTS AND NOTES REVIEWED AWAKE ALERT IN RESP ISOLATION - Current Medication List Current Medications: Active Medications Acetaminophen (Tylenol -) 650 mg PO Q4H PRN PRN Reason: FEVER Amoxicillin/Clavulanate Potassium (Augmentin - 500mg Tablet) 1 tab PO BID@0800, 1730 [facility] Last Admin: 06/18/18 08:09 Dose: 1 tab Enoxaparin Sodium (Lovenox -) 40 mg SQ DAILY [facility] Lactated Ringer's (Lactated Ringers Solution) 1,000 ml in 1,000 mls @ 100 mls/ hr IV ASDIR [facility] Stop: 06/18/18 09:44 Last Admin: 06/18/18 01:11 Dose: 100 mls/hr Insulin Aspart (Novolog Vial Sliding Scale -) 1 vial SQ [facility]; Protocol Last Admin: 06/18/18 06:51 Dose: Not Given Rosuvastatin Calcium (Crestor -) 5 mg PO DAILY [facility] Valsartan (Diovan -) 160 mg PO DAILY [facility] - Objective Vital Signs: Vital Signs Temperature 99.5 F 06/18/18 07:56 Pulse Rate 105 H 06/18/18 07:56 Respiratory Rate 16 06/18/18 07:56 Blood Pressure 148/73 06/18/18 07:56 O2 Sat by Pulse Oximetry (%) 95 06/18/18 07:56 Constitutional: Yes: Mild Distress Eyes: Yes: WNL HENT: Yes: WNL Neck: Yes: WNL Cardiovascular: Yes: WNL Respiratory: Yes: Cough, On Nasal O2, Poor Air Entry Gastrointestinal: Yes: Soft Genitourinary: Yes: WNL Musculoskeletal: Yes: WNL Extremities: Yes: WNL Edema: No Peripheral Pulses WNL: Yes Integumentary: Yes: WNL Wound/Incision: Yes: Clean/Dry Neurological: Yes: WNL ...Motor Strength: WNL Psychiatric: Yes: WNL Labs: CBC, BMP 06/18/18 05:00 06/18/18 05:00 Problem List - Problems (1) Cavitary lesion of lung Code(s): J98.4 - OTHER DISORDERS OF LUNG (2) Fever Code(s): R50.9 - FEVER, UNSPECIFIED (3) Hemoptysis Code(s): R04.2 - HEMOPTYSIS (4) Otitis media Code(s): H66.90 - OTITIS MEDIA, UNSPECIFIED, UNSPECIFIED EAR (5) PNA (pneumonia) Code(s): J18.9 - PNEUMONIA, UNSPECIFIED ORGANISM (6) Rheumatoid arthritis Code(s): M06.9 - RHEUMATOID ARTHRITIS, UNSPECIFIED Assessment/Plan IV ABX PER ID PULM EVAL ENT F/U OTITIS NEBS CT CHEST P DVT PROPHYLAXIS ISOLATION RESP PRECAUTIONS
[2018-06-18] MEDS ORDERED: PT OWN MED DRAWER 7, Y5N ONE (09:37)
[2018-06-18] MEDS: VALSARTAN 160 MG TABLET (UD) PO SCH (09:38)
[2018-06-18] MEDS: ENOXAPARIN NA (PORCINE) 40 MG/0.4 ML DISP.SYRIN SQ SCH (09:38)
[2018-06-18] MEDS: ROSUVASTATIN CA 5 MG TABLET (FP) PO SCH (09:38)
[2018-06-18] MEDS ORDERED: ACETAMINOPHEN 325 MG TABLET (FP) ONE (10:22)
[2018-06-18] MEDS: ACETAMINOPHEN 325 MG TABLET (FP) PO PRN (10:25)
--- NOTE | 2018-06-18 12:18 | PN ---
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) RA- recently started humira 3 months ago drainage from the right ear YUNIOR pneumonia otitis media cavitary lung disease- r/o TB would continue rocephin for pneumonia/otitis- ?perforation agree with TB workup- need records from pulmonary regarding prior workup quant gold sputum afb routine culture blood cultures consider ent eval of ear Problem List - Problems (1) PNA (pneumonia) Code(s): J18.9 - PNEUMONIA, UNSPECIFIED ORGANISM (2) Hemoptysis Code(s): R04.2 - HEMOPTYSIS (3) Cavitary lesion of lung Code(s): J98.4 - OTHER DISORDERS OF LUNG (4) Rheumatoid arthritis Code(s): M06.9 - RHEUMATOID ARTHRITIS, UNSPECIFIED (5) Otitis media Code(s): H66.90 - OTITIS MEDIA, UNSPECIFIED, UNSPECIFIED EAR
--- NOTE | 2018-06-18 12:49 | CON.PULM ---
Consult Consult Specialty:: PULMONARY Referred by:: Dr. Jorgensen Reason for Consultation:: hemoptysis - History of Present Illness Chief Complaint: hemoptysis History of Present Illness: 67yo female with h/o HTN, DM, hyperlipidemia, rheumatoid arthritis on Humira who was admitted with epistaxis and hemoptysis. Hemoptysis described as streaky , less than 1 tablespoon. Also with subjective fevers and chills. No chest pain or discomfort. +sick contacts at home. She has been seen as an outpt for scattered bilateral lesions. Denies unintentional weight loss. 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 Unknown if quantiferon was checked. - History Source History Provided By: Patient, Medical Record Limitations to Obtaining History: No Limitations - Past Medical History Cardio/Vascular: Yes: HTN Rheumatology: Yes: Rheumatoid Arthritis - Alcohol/Substance Use Hx Alcohol Use: No - Smoking History Smoking history: Former smoker Have you smoked in the past 12 months: No Aproximately how many cigarettes per day: 10 If you are a former smoker, when did you quit?: 2018 Home Medications - Allergies Allergies/Adverse Reactions: Allergies Allergy/AdvReac Type Severity Reaction Status Date / Time levofloxacin [From Levaquin] Allergy "HIVES AND Verified 06/17/18 17:02 TROUBLE BREATHING" SEAFOOD Allergy "THROAT Uncoded 06/17/18 17:02 CLOSES" - Home Medications Home Medications: Ambulatory Orders Acetaminophen [Tylenol] 650 mg PO PRN PRN 06/13/16 Insulin Degludec [Tresiba Flextouch U-100] 50 unit SQ BID 06/13/16 Rosuvastatin Calcium [Crestor] 5 mg PO DAILY 06/13/16 Valsartan [Diovan] 160 mg PO DAILY 06/13/16 Dapagliflozin Propanediol [Farxiga] 5 mg PO DAILY 06/18/18 Dexlansoprazole [Dexilant] 30 mg PO ONCE 06/18/18 Folic Acid 1 mg PO DAILY 06/18/18 Rosuvastatin [Crestor -] 10 mg PO DAILY 06/18/18 Review of Systems - Review of Systems Constitutional: reports: Chills, Fever, Weakness. denies: Unintentional Wgt. Loss Eyes: denies: Recent Change in Vision HENT: reports: Nasal Congestion. denies: Throat Pain Neck: denies: Stiffness, Tenderness Cardiovascular: reports: Shortness of Breath. denies: Chest Pain, Palpitations Respiratory: reports: Cough, Hemoptysis, SOB on Exertion. denies: Wheezing Gastrointestinal: denies: Abdominal Pain, Nausea, Vomiting Genitourinary: denies: Dysuria, Hematuria Neurological: denies: Dizziness, Headache Endocrine: denies: Unexplained Weight Loss Physical Exam Vital Sings: Vital Signs Temperature 98.6 F 06/18/18 10:25 Pulse Rate 89 06/18/18 10:25 Respiratory Rate 16 06/18/18 10:25 Blood Pressure 140/63 06/18/18 10:25 O2 Sat by Pulse Oximetry (%) 96 06/18/18 10:25 Constitutional: Yes: Calm Eyes: Yes: Conjunctiva Clear, EOM Intact HENT: Yes: Atraumatic, Normocephalic Neck: Yes: Supple, Trachea Midline Cardiovascular: Yes: Regular Rate and Rhythm Respiratory: Yes: Diminished (decreased breath sounds at the bases) ...Clubbing: No Gastrointestinal: Yes: Normal Bowel Sounds, Soft. No: Tenderness Edema: No Labs: CBC, BMP 06/18/18 05:00 06/18/18 05:00 Imaging - Results Chest X-ray: Report Reviewed, Image Reviewed (left upper lobe atelectasis vs infiltrate) Problem List - Problems (1) Cavitary lesion of lung Code(s): J98.4 - OTHER DISORDERS OF LUNG (2) Hemoptysis Code(s): R04.2 - HEMOPTYSIS (3) PNA (pneumonia) Code(s): J18.9 - PNEUMONIA, UNSPECIFIED ORGANISM (4) Rheumatoid arthritis Code(s): M06.9 - RHEUMATOID ARTHRITIS, UNSPECIFIED Assessment/Plan Hemoptysis Pneumonia Cavitary Lung Lesion Bronchiectasis Lung Nodule Rheumatoid Arthritis on DMARD HTN DM Hypercholesterolemia - antibiotics per ID - f/u cultures, AFB - quantiferon gold - may need BAL if sputums unrevealing - agree with airborne isolation for now - quantify hemoptysis - outpt f/u of chest imaging - DVT prophylaxis Thank you for this consult Bobby Huynh MD
[2018-06-18] MEDS: CEFTRIAXONE 1 GM in DEXTROSE 5%-WATER - 50 ML IVPB SCH (13:23)
[2018-06-18] MEDS ORDERED: CEFTRIAXONE 1 GM/50 ML BAG ONE (13:23)
--- NOTE | 2018-06-18 13:52 | CONS ---
DATE OF CONSULTATION: DATE OF DICTATION: 06/18/2018 INFECTIOUS DISEASE CONSULTATION REQUESTED BY: Dr. Painter This is a 67-year-old woman with a history of a known right upper lobe lung cavity which she says they discovered about 8 months ago. Three or 4 days ago she started developing some cough. She was seen at the [facility] and had a chest x-ray where they noticed a left upper lobe infiltrate. They sent her to the ER. In the ER, she was noted to have a low-grade temp, 100.3, and she was admitted for further evaluation. She notes that she blew her nose a day or 2 ago and it was bloody and when she coughed she had some blood which subsequently resolved. She continues to cough. Of note, she is a former smoker. She quit smoking 6 months ago. 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 She does not know if she has ever had QuantiFERON drawn. There is no history of any recent antibiotics. She has no sick contacts. She is up to date on influenza and pneumococcal vaccines. She has no nausea or vomiting. She lives with her brother. There has been no recent travel. She has 5 birds, a dog, and a cat. She is . Of note, she has a history of rheumatoid arthritis and has been on Humira every 2 weeks for the last 3 months. She has seen Dr. Pretty as well for the cavitary lesion. She is ALLERGIC TO LEVAQUIN, LEVOFLOXACIN, AND SEAFOOD. PAST MEDICAL HISTORY: Notable for rheumatoid arthritis, essential hypertension, hyperlipidemia, diabetes. SURGICAL HISTORY: Notable for carpal tunnel release and cholecystectomy. SOCIAL HISTORY: She is a former smoker. She stopped 6 months ago. Previous binge drinker over 20 years ago. She no longer drinks. No history of substance use. She lives with her brother. She always feels hot and has the air conditioner on at home. FAMILY HISTORY: Unremarkable. MEDICATIONS: At home include acetaminophen, insulin, Crestor, Diovan, and is no longer taking the methotrexate she is taking Humira. REVIEW OF SYSTEMS: Notable for pain and now drainage from her right ear which she states began yesterday. PHYSICAL EXAMINATION: Vital Signs: T-max is 100.3, current temperature is 98.6, pulse of 89, blood pressure 140/63, respiratory rate is 16, saturating 96% on room air. HEENT: She is normocephalic. Her eyes are anicteric. Neck: Supple. Lungs: Clear to auscultation. Heart: Regular rate and rhythm. Abdomen: Soft, nontender. Extremities: Without edema. LABORATORY DATA: White count on admission was 15.4, this morning is 11.6, hemoglobin 12, platelets are 248, BUN 11 and creatinine 0.7. Urinalysis is 3+ glucose. Influenza screen is negative, Legionella and pneumococcal antigens are negative, and sputum and blood cultures are pending. She had a chest x-ray that reveals a left upper lobe infiltrate. She had a recent CAT scan done on June 12 that is notable for a right upper lobe cavity as well as some apical changes in her left upper lobe. 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 Would continue Rocephin for pneumonia and the otitis/question of perforation. Unfortunately, I cannot look in her ear, as the isolation room does not have an otoscope. Would agree with TB workup. Needs records from pulmonary regarding her prior workup. Obtain a QuantiFERON Gold, sputum AFB, routine cultures and blood cultures for Legionella, and pneumococcal antigens are negative. She is to be seen by Pulmonary who they will speak with Dr. Pretty regarding her prior workup. Would consider ENT evaluation of her ear as well. Further recommendations to follow. BAUDILIO QUINN M.D. [id number]
--- NOTE | 2018-06-18 18:58 | EKG ---
Test Reason : Blood Pressure : / mmHG Vent. Rate : 093 BPM Atrial Rate : 093 BPM P-R Int : 150 ms QRS Dur : 084 ms QT Int : 332 ms P-R-T Axes : 061 027 017 degrees QTc Int : 412 ms SINUS RHYTHM WITH PREMATURE ATRIAL COMPLEXES POSSIBLE LEFT ATRIAL ENLARGEMENT NONSPECIFIC T WAVE ABNORMALITY ABNORMAL ECG WHEN COMPARED WITH ECG OF 27-SEP-2011 09:18, PREMATURE ATRIAL COMPLEXES ARE NOW PRESENT MINIMAL CRITERIA FOR INFERIOR INFARCT ARE NO LONGER PRESENT Confirmed by MOLINA CLEMENTE MD ([id number]) on 06/18/2018 6:57:57 PM Referred By: Confirmed By:MOLINA CLEMENTE MD
[2018-06-19 00:49] VITALS: BMI 30.8
[2018-06-19] MEDS: INSULIN SLIDING SCALE (NOVOLOG) 1 VIAL SQ SCH ×4 (06:13→21:27)
[2018-06-19] MEDS ORDERED: PT OWN MED DRAWER 7, Y5N ONE ×2 (09:08→09:35)
[2018-06-19] MEDS ORDERED: DEXTROSE 5%-WATER - 50 ML IVPB ONE (09:08)
[2018-06-19] MEDS ORDERED: cefTRIAXone SODIUM 1 GM VIAL ONE (09:08)
[2018-06-19] MEDS: CEFTRIAXONE 1 GM in DEXTROSE 5%-WATER - 50 ML IVPB SCH (09:36)
[2018-06-19] MEDS: ROSUVASTATIN CA 5 MG TABLET (FP) PO SCH (09:36)
[2018-06-19] MEDS: ENOXAPARIN NA (PORCINE) 40 MG/0.4 ML DISP.SYRIN SQ SCH (09:36)
[2018-06-19] MEDS: VALSARTAN 160 MG TABLET (UD) PO SCH (09:36)
[2018-06-19] MEDS: ACETAMINOPHEN 325 MG TABLET (FP) PO PRN ×2 (09:36→16:54)
--- NOTE | 2018-06-19 09:57 | PN ---
Progress Note, Physician Chief Complaint: Productive cough with brown sputum Epistaxis R ear pain with discharge Hx of Cavitary YUNIOR lesion History of Present Illness: Previous notes and events reviewed awake and alert NAD afebrile complain of headache without visual disturbances mildly elev WBC, AFB sputum culture pending, Quantiferon Gold pending - Current Medication List Current Medications: Active Medications Acetaminophen (Tylenol -) 650 mg PO Q4H PRN PRN Reason: FEVER Last Admin: 06/19/18 09:36 Dose: 650 mg Enoxaparin Sodium (Lovenox -) 40 mg SQ DAILY [facility] Last Admin: 06/19/18 09:36 Dose: 40 mg Ceftriaxone Sodium 1 gm/ (Dextrose) 50 mls @ 100 mls/hr IVPB DAILY [facility]; Protocol Last Admin: 06/19/18 09:36 Dose: 100 mls/hr Insulin Aspart (Novolog Vial Sliding Scale -) 1 vial SQ ACHS [facility]; Protocol Last Admin: 06/19/18 06:13 Dose: Not Given Rosuvastatin Calcium (Crestor -) 5 mg PO DAILY [facility] Last Admin: 06/19/18 09:36 Dose: 5 mg Valsartan (Diovan -) 160 mg PO DAILY [facility] Last Admin: 06/19/18 09:36 Dose: 160 mg - Objective Vital Signs: Vital Signs Temperature 98.5 F 06/19/18 09:33 Pulse Rate 98 H 06/19/18 09:33 Respiratory Rate 16 06/19/18 09:33 Blood Pressure 145/67 06/19/18 09:33 O2 Sat by Pulse Oximetry (%) 96 06/19/18 05:20 Constitutional: Yes: Well Nourished, No Distress, Calm Eyes: Yes: Conjunctiva Clear Neck: Yes: Supple Cardiovascular: Yes: Regular Rate and Rhythm Respiratory: Yes: Cough, Diminished, SOB (intermittent episodes) Gastrointestinal: Yes: WNL, Normal Bowel Sounds, Soft Musculoskeletal: Yes: WNL Extremities: Yes: WNL Edema: No Integumentary: Yes: WNL Neurological: Yes: Alert, Oriented Psychiatric: Yes: Alert, Oriented Labs: CBC, BMP 06/18/18 05:00 06/18/18 05:00 <Gretchen Pires - Last Filed: 06/19/18 10:04> - Current Medication List Current Medications: Active Medications Acetaminophen (Tylenol -) 650 mg PO Q4H PRN PRN Reason: FEVER Last Admin: 06/19/18 09:36 Dose: 650 mg Enoxaparin Sodium (Lovenox -) 40 mg SQ DAILY [facility] Last Admin: 06/19/18 09:36 Dose: 40 mg Ceftriaxone Sodium 1 gm/ (Dextrose) 50 mls @ 100 mls/hr IVPB DAILY [facility]; Protocol Last Admin: 06/19/18 09:36 Dose: 100 mls/hr Insulin Aspart (Novolog Vial Sliding Scale -) 1 vial SQ ACHS [facility]; Protocol Last Admin: 06/19/18 11:47 Dose: 4 unit Rosuvastatin Calcium (Crestor -) 5 mg PO DAILY [facility] Last Admin: 06/19/18 09:36 Dose: 5 mg Valsartan (Diovan -) 160 mg PO DAILY [facility] Last Admin: 06/19/18 09:36 Dose: 160 mg - Objective Vital Signs: Vital Signs Temperature 98.8 F 06/19/18 14:00 Pulse Rate 89 06/19/18 14:00 Respiratory Rate 18 06/19/18 14:00 Blood Pressure 142/68 06/19/18 14:00 O2 Sat by Pulse Oximetry (%) 96 06/19/18 05:20 Labs: CBC, BMP 06/18/18 05:00 06/18/18 05:00 <Shama Painter - Last Filed: 06/19/18 16:51> Problem List - Problems (1) Cavitary lesion of lung Code(s): J98.4 - OTHER DISORDERS OF LUNG (2) Hemoptysis Code(s): R04.2 - HEMOPTYSIS (3) Otitis media Code(s): H66.90 - OTITIS MEDIA, UNSPECIFIED, UNSPECIFIED EAR (4) Fever Code(s): R50.9 - FEVER, UNSPECIFIED (5) Rheumatoid arthritis Code(s): M06.9 - RHEUMATOID ARTHRITIS, UNSPECIFIED (6) PNA (pneumonia) Code(s): J18.9 - PNEUMONIA, UNSPECIFIED ORGANISM <Gretchen Pires - Last Filed: 06/19/18 10:04> - Problems (1) Cavitary lesion of lung Code(s): J98.4 - OTHER DISORDERS OF LUNG (2) Fever Code(s): R50.9 - FEVER, UNSPECIFIED (3) Hemoptysis Code(s): R04.2 - HEMOPTYSIS (4) Otitis media Code(s): H66.90 - OTITIS MEDIA, UNSPECIFIED, UNSPECIFIED EAR (5) PNA (pneumonia) Code(s): J18.9 - PNEUMONIA, UNSPECIFIED ORGANISM (6) Rheumatoid arthritis Code(s): M06.9 - RHEUMATOID ARTHRITIS, UNSPECIFIED <Shama Painter - Last Filed: 06/19/18 16:51> Assessment/Plan -change Obs status to inpt admit due to cont workup and treatment -cont airborne precaution -pending AFB sputum culture, quantiferon gold result -O2 via NC PRN, keep SpO2 >90% -pulm on board-outpt f/u for further imaging of chest -cont IV ABT-ID recommendation appreciated -ENT consult for R ear otitis -DVT ppx -tylenol PRN for headache -diabetic diet, BGM monitoring, ISS <Gretchen Pires - Last Filed: 06/19/18 10:04> I HAVE SEEN THE PATIENT AND I AGREE WITH THE ABOVE NOTE <Shama Painter - Last Filed: 06/19/18 16:51>
--- NOTE | 2018-06-19 10:20 | PN ---
Progress Note (short form) - Note Progress Note: PULMONARY c/o headache. Denies shortness of breath. No further hemoptysis. No fevers or chills. Vital Signs Period Temp Pulse Resp BP Sys/Monahan Pulse Ox Last 24 Hr 96.4 F-99.5 F 80-100 16-20 117-145/62-78 96-99 Gen: NAD at rest Heart: RRR Lung: decreased breath sounds at the bases Abd: soft, nontender Ext: no edema CBC, BMP 06/18/18 05:00 06/18/18 05:00 Active Medications Acetaminophen (Tylenol -) 650 mg PO Q4H PRN PRN Reason: FEVER Last Admin: 06/19/18 09:36 Dose: 650 mg Enoxaparin Sodium (Lovenox -) 40 mg SQ DAILY [facility] Last Admin: 06/19/18 09:36 Dose: 40 mg Ceftriaxone Sodium 1 gm/ (Dextrose) 50 mls @ 100 mls/hr IVPB DAILY [facility]; Protocol Last Admin: 06/19/18 09:36 Dose: 100 mls/hr Insulin Aspart (Novolog Vial Sliding Scale -) 1 vial SQ ACHS [facility]; Protocol Last Admin: 06/19/18 06:13 Dose: Not Given Rosuvastatin Calcium (Crestor -) 5 mg PO DAILY [facility] Last Admin: 06/19/18 09:36 Dose: 5 mg Valsartan (Diovan -) 160 mg PO DAILY [facility] Last Admin: 06/19/18 09:36 Dose: 160 mg A/P Hemoptysis Pneumonia Cavitary Lung Lesion Bronchiectasis Lung Nodule Rheumatoid Arthritis on DMARD HTN DM Hypercholesterolemia - antibiotics per ID - f/u cultures, AFB - quantiferon gold - may need BAL if sputums unrevealing - continue airborne isolation for now - quantify hemoptysis - outpt f/u of chest imaging - DVT prophylaxis Problem List - Problems (1) Cavitary lesion of lung Code(s): J98.4 - OTHER DISORDERS OF LUNG (2) Hemoptysis Code(s): R04.2 - HEMOPTYSIS (3) PNA (pneumonia) Code(s): J18.9 - PNEUMONIA, UNSPECIFIED ORGANISM (4) Rheumatoid arthritis Code(s): M06.9 - RHEUMATOID ARTHRITIS, UNSPECIFIED
--- NOTE | 2018-06-19 16:34 | PN ---
Progress Note (short form) - Note Progress Note: still with productive cough no hemoptysis Vital Signs Period Temp Pulse Resp BP Sys/Monahan Pulse Ox Last 24 Hr 96.4 F-99.5 F 80-100 16-20 117-145/62-78 96-99 cor-rrr lungs scattered rhonchi abd soft,nt ext no edema CBC, BMP 06/18/18 05:00 06/18/18 05:00 Microbiology 06/19/18 03:30 Sputum - Expectorated AFB Smear Concentration - Preliminary 06/19/18 03:30 Sputum - Expectorated Direct Acid Fast Bacilli Smear - Final 06/19/18 03:30 Sputum - Expectorated Mycobacterial Culture - Preliminary 06/18/18 05:00 Sputum - Expectorated AFB Smear Concentration - Final 06/18/18 05:00 Sputum - Expectorated Direct Acid Fast Bacilli Smear - Final 06/18/18 05:00 Sputum - Expectorated Mycobacterial Culture - Preliminary 06/18/18 05:00 Sputum - Expectorated Gram Stain - Final 06/18/18 05:00 Sputum - Expectorated Sputum Culture - Preliminary NORMAL RESPIRATORY ADRIAN 06/17/18 21:50 Urine - Urine Clean Catch Urine Culture - Final NO GROWTH OBTAINED 06/17/18 18:50 Blood - Peripheral Venous Blood Culture - Preliminary NO GROWTH OBTAINED AFTER 24 HOURS, INCUBATION TO CONTINUE FOR 4 DAYS. 06/17/18 19:50 Blood - Peripheral Venous Blood Culture - Preliminary NO GROWTH OBTAINED AFTER 24 HOURS, INCUBATION TO CONTINUE FOR 4 DAYS. 06/18/18 05:00 Urine For Antigen Detection Legionella Antigen - Final 06/18/18 05:00 Urine For Antigen Detection Streptococcus pneumoniae Antigen (M - Final a/p YUNIOR pneumonia otitis media cavitary lung disease- r/o TB would continue rocephin for pneumonia/otitis- ?perforation agree with TB workup- need records from pulmonary regarding prior workup quant gold sputum afb routine culture blood cultures have requested afb pcr on the sputum samples as well Problem List - Problems (1) PNA (pneumonia) Code(s): J18.9 - PNEUMONIA, UNSPECIFIED ORGANISM (2) Hemoptysis Code(s): R04.2 - HEMOPTYSIS (3) Cavitary lesion of lung Code(s): J98.4 - OTHER DISORDERS OF LUNG (4) Rheumatoid arthritis Code(s): M06.9 - RHEUMATOID ARTHRITIS, UNSPECIFIED (5) Otitis media Code(s): H66.90 - OTITIS MEDIA, UNSPECIFIED, UNSPECIFIED EAR
--- NOTE | 2018-06-19 18:32 | CON.ENT ---
Consult Consult Specialty:: ENT Referred by:: Dr. Painter Reason for Consultation:: otitis - History of Present Illness Chief Complaint: ear drainage right History of Present Illness: 67 yo F admitted hd nasal congestion, then righjt ear drainge intermittent, brown, then sticky, some pain, denies tinnitus or vertigo hearing loss right ear, few infections prior , pt states in past known tympanic membrane perforation (?iatrogenic??) no ear surgery also denies significant sinus infections, some nasal allergies - History Source History Provided By: Patient, Medical Record Limitations to Obtaining History: No Limitations - Past Medical History Cardio/Vascular: Yes: HTN Rheumatology: Yes: Rheumatoid Arthritis - Alcohol/Substance Use Hx Alcohol Use: No - Smoking History Smoking history: Former smoker Have you smoked in the past 12 months: No Aproximately how many cigarettes per day: 10 If you are a former smoker, when did you quit?: 2018 Home Medications - Allergies Allergies/Adverse Reactions: Allergies Allergy/AdvReac Type Severity Reaction Status Date / Time levofloxacin [From Levaquin] Allergy "HIVES AND Verified 06/17/18 17:02 TROUBLE BREATHING" SEAFOOD Allergy "THROAT Uncoded 06/17/18 17:02 CLOSES" - Home Medications Home Medications: Ambulatory Orders Acetaminophen [Tylenol] 650 mg PO PRN PRN 06/13/16 Insulin Degludec [Tresiba Flextouch U-100] 50 unit SQ BID 06/13/16 Rosuvastatin Calcium [Crestor] 5 mg PO DAILY 06/13/16 Valsartan [Diovan] 160 mg PO DAILY 06/13/16 Dapagliflozin Propanediol [Farxiga] 5 mg PO DAILY 06/18/18 Dexlansoprazole [Dexilant] 30 mg PO ONCE 06/18/18 Folic Acid 1 mg PO DAILY 06/18/18 Rosuvastatin [Crestor -] 10 mg PO DAILY 06/18/18 Physical Exam-ENT Vital Signs: Vital Signs Temperature 97.3 F L 06/19/18 16:30 Pulse Rate 79 06/19/18 16:30 Respiratory Rate 20 06/19/18 16:30 Blood Pressure 103/53 L 06/19/18 16:30 O2 Sat by Pulse Oximetry (%) 96 06/19/18 05:20 Constitutional: Yes: Well Nourished, No Distress Head: Yes: WNL Face: Yes: WNL Eyes: Yes: WNL Nasal Passage: Yes: WNL Oral/Pharynx: Yes: Other (dentures, no lesions, no erythema or exudate) Ear Canal: Yes: Cerumen, Other (left normal; right cerumen lateral, removed, medial squamous debris, sl otorrhea) Tympanic Membrane: Yes: Other (left normal, right partially visualized posteriorly, no visible perforation,butr anterior obscured by medial debris) Neck: Yes: WNL Problem List - Problems (1) Otitis media Assessment/Plan: right otorrhea s/p URI, nasal symptoms suspect right otitis media possible perforation Recommend continue antibiotics as per ID eardrops right ear (charts states allergy to Levofloxacin) to office after discharge for audiogram Thank you for consultation, Dimas Fam MD FACS Code(s): H66.90 - OTITIS MEDIA, UNSPECIFIED, UNSPECIFIED EAR Qualifiers: Chronicity: acute Laterality: right Recurrence: non-recurrent
[2018-06-19] MEDS ORDERED: SODIUM CHLORIDE NASAL SPRAY 44 ML BOTTLE NS PRN (18:34)
[2018-06-19] MEDS ORDERED: INSULIN (NOVOLOG) ASPART 100 UNITS/ML 10ML VIAL ONE (21:09)
[2018-06-19] MEDS: NEOMYCIN/COLISTIN/HC OTIC SUSP 5 ML BOTTLE AD SCH (21:27)
[2018-06-20] MEDS: NEOMYCIN/COLISTIN/HC OTIC SUSP 5 ML BOTTLE AD SCH ×3 (06:27→22:08)
[2018-06-20] MEDS: INSULIN SLIDING SCALE (NOVOLOG) 1 VIAL SQ SCH ×4 (06:27→22:08)
[2018-06-20 07:56] LABS: HEMATOCRIT 35.9 % (32.4-45.2); HEMOGLOBIN 12.3 GM/dL (10.7-15.3); MCH 33.3 pg (25.7-33.7); MCHC 34.4 g/dl (32.0-36.0); MEAN CELL VOLUME 96.8 fl (80-96); MEAN PLT VOLUME 9.6 fl (7.5-11.1); PLATELET COUNT 266 K/MM3 (134-434); RDW 14.3 % (11.6-15.6); WHITE BLOOD COUNT 8.6 K/mm3 (4.0-10.0)
[2018-06-20 08:49] LABS: ALK PHOS 81 U/L (45-117); ANION GAP 8 MMOL/L (8-16); BILIRUBIN,TOTAL 0.2 mg/dL (0.2-1); BLOOD UREA NITROGEN 18 mg/dL (7-18); CALCIUM 8.8 mg/dL (8.5-10.1); CHLORIDE 105 mmol/L (98-107); CO2 25 mmol/L (21-32); CREATININE 0.7 mg/dL (0.55-1.3); GLUCOSE,RANDOM 157 mg/dL (74-106); POTASSIUM 4.4 mmol/L (3.5-5.1); SGOT/AST 18 U/L (15-37); SGPT/ALT 19 U/L (13-61); SODIUM 138 mmol/L (136-145); TOT PROT 6.4 g/dl (6.4-8.2)
[2018-06-20] MEDS ORDERED: cefTRIAXone SODIUM 1 GM VIAL ONE (10:38)
[2018-06-20] MEDS ORDERED: DEXTROSE 5%-WATER - 50 ML IVPB ONE (10:38)
[2018-06-20] MEDS ORDERED: PT OWN MED DRAWER 7, Y5N ONE ×2 (10:38→14:21)
[2018-06-20] MEDS: ENOXAPARIN NA (PORCINE) 40 MG/0.4 ML DISP.SYRIN SQ SCH (10:47)
[2018-06-20] MEDS: CEFTRIAXONE 1 GM in DEXTROSE 5%-WATER - 50 ML IVPB SCH (10:47)
[2018-06-20] MEDS: VALSARTAN 160 MG TABLET (UD) PO SCH (10:47)
[2018-06-20] MEDS: ROSUVASTATIN CA 5 MG TABLET (FP) PO SCH (11:19)
[2018-06-20] MEDS: ACETAMINOPHEN 325 MG TABLET (FP) PO PRN (11:30)
--- NOTE | 2018-06-20 12:51 | PN ---
Progress Note (short form) - Note Progress Note: PULMONARY SITTING ON CHAIR/APPEARS STABLE VSS Gen: NAD at rest Heart: RRR Lung: decreased breath sounds at the bases Abd: soft, nontender Ext: no edema labs/notes/images/micro reviewed Active Medications noted A/P Hemoptysis Pneumonia Cavitary Lung Lesion Bronchiectasis Lung Nodule Rheumatoid Arthritis on DMARD HTN DM Hypercholesterolemia - antibiotics per ID - f/u cultures, AFB x2 negative thus far - quantiferon gold pending - may need BAL if sputums unrevealing - continue airborne isolation for now - quantify hemoptysis - outpt f/u of chest imaging - DVT prophylaxis Carlo PENN MD
--- NOTE | 2018-06-20 13:42 | PN ---
Progress Note (short form) - Note Progress Note: still with productive cough no hemoptysis overall improved Vital Signs Period Temp Pulse Resp BP Sys/Monahan Pulse Ox Last 24 Hr 97.3 F-98.8 F 76-93 18-20 103-142/53-77 96 cor-rrr llungs decresed bs at bases abd soft,nt ext no edema CBC, BMP 06/20/18 06:30 06/20/18 06:30 Microbiology 06/18/18 05:00 Sputum - Expectorated Gram Stain - Final 06/18/18 05:00 Sputum - Expectorated Sputum Culture - Final NORMAL RESPIRATORY ADRIAN 06/18/18 05:00 Sputum - Expectorated AFB Smear Concentration - Final 06/18/18 05:00 Sputum - Expectorated Direct Acid Fast Bacilli Smear - Final 06/18/18 05:00 Sputum - Expectorated Mycobacterial Culture - Preliminary 06/19/18 03:30 Sputum - Expectorated AFB Smear Concentration - Preliminary 06/19/18 03:30 Sputum - Expectorated Direct Acid Fast Bacilli Smear - Final 06/19/18 03:30 Sputum - Expectorated Mycobacterial Culture - Preliminary 06/17/18 18:50 Blood - Peripheral Venous Blood Culture - Preliminary NO GROWTH OBTAINED AFTER 48 HOURS, INCUBATION TO CONTINUE FOR 3 DAYS. 06/17/18 19:50 Blood - Peripheral Venous Blood Culture - Preliminary NO GROWTH OBTAINED AFTER 48 HOURS, INCUBATION TO CONTINUE FOR 3 DAYS. 06/17/18 21:50 Urine - Urine Clean Catch Urine Culture - Final NO GROWTH OBTAINED 06/18/18 05:00 Urine For Antigen Detection Legionella Antigen - Final 06/18/18 05:00 Urine For Antigen Detection Streptococcus pneumoniae Antigen (M - Final a/p YUNIOR pneumonia otitis media with perforation cavitary lung disease- r/o TB RA- on Humira would continue rocephin for pneumonia/otitis- agree with TB workup- need records from pulmonary regarding prior workup quant gold sputum afb routine culture blood cultures have requested afb pcr on the sputum samples as well have explained to patient we are waiting for sputum results from AFB lab at [facility] Problem List - Problems (1) PNA (pneumonia) Code(s): J18.9 - PNEUMONIA, UNSPECIFIED ORGANISM (2) Hemoptysis Code(s): R04.2 - HEMOPTYSIS (3) Cavitary lesion of lung Code(s): J98.4 - OTHER DISORDERS OF LUNG (4) Rheumatoid arthritis Code(s): M06.9 - RHEUMATOID ARTHRITIS, UNSPECIFIED (5) Otitis media Code(s): H66.90 - OTITIS MEDIA, UNSPECIFIED, UNSPECIFIED EAR Qualifiers: Chronicity: acute Laterality: right Recurrence: non-recurrent
--- NOTE | 2018-06-20 16:32 | PN ---
Progress Note, Physician Chief Complaint: Productive cough with brown sputum Epistaxis R ear pain with discharge Hx of Cavitary YUNIOR lesion History of Present Illness: Previous notes and events reviewed awake and alert NAD afebrile WBC wnl, AFB sputum culture pending pt sts feeling better and sts not coughing as much - Current Medication List Current Medications: Active Medications Acetaminophen (Tylenol -) 650 mg PO Q4H PRN PRN Reason: FEVER Last Admin: 06/20/18 11:30 Dose: 650 mg Enoxaparin Sodium (Lovenox -) 40 mg SQ DAILY [facility] Last Admin: 06/20/18 10:47 Dose: 40 mg Ceftriaxone Sodium 1 gm/ (Dextrose) 50 mls @ 100 mls/hr IVPB DAILY [facility]; Protocol Last Admin: 06/20/18 10:47 Dose: 100 mls/hr Insulin Aspart (Novolog Vial Sliding Scale -) 1 vial SQ ACHS [facility]; Protocol Last Admin: 06/20/18 12:00 Dose: 2 unit Neomycin/Colistin/Hydrocort/Thonzon (Coly-Mycin S -) 5 drop AD TID [facility] Stop: 06/24/18 14:01 Last Admin: 06/20/18 14:24 Dose: 5 drop Rosuvastatin Calcium (Crestor -) 5 mg PO DAILY [facility] Last Admin: 06/20/18 11:19 Dose: 5 mg Sodium Chloride (Beadle Treece Nasal Treece -) 2 spray NS Q12H PRN PRN Reason: NASAL CONGESTION Last Admin: 06/19/18 21:36 Dose: 2 spray Valsartan (Diovan -) 160 mg PO DAILY [facility] Last Admin: 06/20/18 10:47 Dose: 160 mg - Objective Vital Signs: Vital Signs Temperature 98.1 F 06/20/18 15:38 Pulse Rate 91 H 06/20/18 15:38 Respiratory Rate 18 06/20/18 15:38 Blood Pressure 111/57 L 06/20/18 15:38 O2 Sat by Pulse Oximetry (%) 96 06/19/18 21:00 Constitutional: Yes: Well Nourished, No Distress, Calm Eyes: Yes: Conjunctiva Clear Neck: Yes: Supple Cardiovascular: Yes: Regular Rate and Rhythm Respiratory: Yes: Diminished Gastrointestinal: Yes: WNL, Normal Bowel Sounds, Soft Musculoskeletal: Yes: WNL Extremities: Yes: WNL Edema: No Integumentary: Yes: WNL Neurological: Yes: Alert, Oriented Psychiatric: Yes: Alert, Oriented Labs: CBC, BMP 06/20/18 06:30 06/20/18 06:30 <Gretchen Pires - Last Filed: 06/20/18 16:27> - Current Medication List Current Medications: Active Medications Acetaminophen (Tylenol -) 650 mg PO Q4H PRN PRN Reason: FEVER Last Admin: 06/20/18 11:30 Dose: 650 mg Docusate Sodium (Colace -) 100 mg PO TID [facility] Enoxaparin Sodium (Lovenox -) 40 mg SQ DAILY [facility] Last Admin: 06/20/18 10:47 Dose: 40 mg Ceftriaxone Sodium 1 gm/ (Dextrose) 50 mls @ 100 mls/hr IVPB DAILY [facility]; Protocol Last Admin: 06/20/18 10:47 Dose: 100 mls/hr Insulin Aspart (Novolog Vial Sliding Scale -) 1 vial SQ ACHS [facility]; Protocol Last Admin: 06/20/18 12:00 Dose: 2 unit Neomycin/Colistin/Hydrocort/Thonzon (Coly-Mycin S -) 5 drop AD TID [facility] Stop: 06/24/18 14:01 Last Admin: 06/20/18 14:24 Dose: 5 drop Polyethylene Glycol (Miralax (For Daily Use) -) 17 gm PO BID [facility] Rosuvastatin Calcium (Crestor -) 5 mg PO DAILY [facility] Last Admin: 06/20/18 11:19 Dose: 5 mg Sodium Chloride (Beadle Treece Nasal Treece -) 2 spray NS Q12H PRN PRN Reason: NASAL CONGESTION Last Admin: 06/19/18 21:36 Dose: 2 spray Valsartan (Diovan -) 160 mg PO DAILY [facility] Last Admin: 06/20/18 10:47 Dose: 160 mg - Objective Vital Signs: Vital Signs Temperature 98.1 F 06/20/18 15:38 Pulse Rate 91 H 06/20/18 15:38 Respiratory Rate 18 06/20/18 15:38 Blood Pressure 111/57 L 06/20/18 15:38 O2 Sat by Pulse Oximetry (%) 96 06/19/18 21:00 Labs: CBC, BMP 06/20/18 06:30 06/20/18 06:30 <Shama Painter - Last Filed: 06/20/18 17:32> Problem List - Problems (1) Cavitary lesion of lung Code(s): J98.4 - OTHER DISORDERS OF LUNG (2) Hemoptysis Code(s): R04.2 - HEMOPTYSIS (3) Otitis media Code(s): H66.90 - OTITIS MEDIA, UNSPECIFIED, UNSPECIFIED EAR Qualifiers: Chronicity: acute Laterality: right Recurrence: non-recurrent (4) Fever Code(s): R50.9 - FEVER, UNSPECIFIED (5) Rheumatoid arthritis Code(s): M06.9 - RHEUMATOID ARTHRITIS, UNSPECIFIED (6) PNA (pneumonia) Code(s): J18.9 - PNEUMONIA, UNSPECIFIED ORGANISM <Gretchen Pires - Last Filed: 06/20/18 16:27> - Problems (1) Cavitary lesion of lung Code(s): J98.4 - OTHER DISORDERS OF LUNG (2) Fever Code(s): R50.9 - FEVER, UNSPECIFIED (3) Hemoptysis Code(s): R04.2 - HEMOPTYSIS (4) Otitis media Code(s): H66.90 - OTITIS MEDIA, UNSPECIFIED, UNSPECIFIED EAR Qualifiers: Chronicity: acute Laterality: right Recurrence: non-recurrent (5) PNA (pneumonia) Code(s): J18.9 - PNEUMONIA, UNSPECIFIED ORGANISM (6) Rheumatoid arthritis Code(s): M06.9 - RHEUMATOID ARTHRITIS, UNSPECIFIED <Shama Painter - Last Filed: 06/20/18 17:32> Assessment/Plan -cont airborne precaution -pending AFB sputum culture, AFB x 2 neg, pending 3rd AFB result -O2 via NC PRN, keep SpO2 >90% -pulm on board-outpt f/u for further imaging of chest -cont IV ABT-ID recommendation appreciated -ENT recommendation appreciated, f/u outpt for audiogram -DVT ppx -tylenol PRN for pain mngmt -diabetic diet, BGM monitoring, ISS <Gretchen Pires - Last Filed: 06/20/18 16:27> I HAVE SEEN AND EXAMINED THE PATIENT AND AGREE WITH THE ABOVE NOTE <Shama Painter - Last Filed: 06/20/18 17:32>
[2018-06-20] MEDS ORDERED: DOCUSATE NA 100 MG/10 ML UNIT-DOSE CUPS PO SCH (22:00)
[2018-06-20] MEDS: POLYETHYLENE GLYCOL 3350 119 GM BTL PO SCH (22:07)
[2018-06-20] MEDS: DOCUSATE SODIUM 100 MG CAPSULE (FP) PO SCH (22:07)
[2018-06-21] MEDS: ACETAMINOPHEN 325 MG TABLET (FP) PO PRN ×2 (02:21→09:58)
[2018-06-21] MEDS: DOCUSATE SODIUM 100 MG CAPSULE (FP) PO SCH ×3 (06:08→22:43)
[2018-06-21] MEDS: INSULIN SLIDING SCALE (NOVOLOG) 1 VIAL SQ SCH ×4 (06:11→22:44)
[2018-06-21] MEDS: NEOMYCIN/COLISTIN/HC OTIC SUSP 5 ML BOTTLE AD SCH ×3 (06:11→22:43)
[2018-06-21] MEDS ORDERED: PT OWN MED DRAWER 7, Y5N ONE (09:51)
[2018-06-21] MEDS ORDERED: cefTRIAXone SODIUM 1 GM VIAL ONE (09:51)
[2018-06-21] MEDS ORDERED: DEXTROSE 5%-WATER - 50 ML IVPB ONE (09:52)
[2018-06-21] MEDS: ENOXAPARIN NA (PORCINE) 40 MG/0.4 ML DISP.SYRIN SQ SCH (09:58)
[2018-06-21] MEDS: ROSUVASTATIN CA 5 MG TABLET (FP) PO SCH (09:58)
[2018-06-21] MEDS: VALSARTAN 160 MG TABLET (UD) PO SCH (09:58)
[2018-06-21] MEDS: CEFTRIAXONE 1 GM in DEXTROSE 5%-WATER - 50 ML IVPB SCH (09:58)
[2018-06-21] MEDS: POLYETHYLENE GLYCOL 3350 119 GM BTL PO SCH ×2 (09:59→22:44)
[2018-06-21] MEDS ORDERED: CYANOCOBALAMIN (VITAMIN B-12) 1000 MCG/1 ML VIAL IM SCH (10:00)
--- NOTE | 2018-06-21 10:35 | PN ---
Progress Note, Physician Chief Complaint: PATIENT IS AWAKE ALERT IN ISOLATION ROOM DENIES CHEST PAIN C/O ACHES AND JOINT PAIN - Current Medication List Current Medications: Active Medications Acetaminophen (Tylenol -) 650 mg PO Q4H PRN PRN Reason: FEVER Last Admin: 06/21/18 09:58 Dose: 650 mg Docusate Sodium (Colace -) 100 mg PO TID [facility] Last Admin: 06/21/18 06:08 Dose: Not Given Enoxaparin Sodium (Lovenox -) 40 mg SQ DAILY [facility] Last Admin: 06/21/18 09:58 Dose: 40 mg Ceftriaxone Sodium 1 gm/ (Dextrose) 50 mls @ 100 mls/hr IVPB DAILY [facility]; Protocol Last Admin: 06/21/18 09:58 Dose: 100 mls/hr Insulin Aspart (Novolog Vial Sliding Scale -) 1 vial SQ ACHS [facility]; Protocol Last Admin: 06/21/18 06:11 Dose: 2 unit Neomycin/Colistin/Hydrocort/Thonzon (Coly-Mycin S -) 5 drop AD TID [facility] Stop: 06/24/18 14:01 Last Admin: 06/21/18 06:11 Dose: 5 drop Polyethylene Glycol (Miralax (For Daily Use) -) 17 gm PO BID [facility] Last Admin: 06/21/18 09:59 Dose: Not Given Rosuvastatin Calcium (Crestor -) 5 mg PO DAILY [facility] Last Admin: 06/21/18 09:58 Dose: 5 mg Sodium Chloride ([place] Nasal [place] -) 2 spray NS Q12H PRN PRN Reason: NASAL CONGESTION Last Admin: 06/19/18 21:36 Dose: 2 spray Valsartan (Diovan -) 160 mg PO DAILY [facility] Last Admin: 06/21/18 09:58 Dose: 160 mg - Objective Vital Signs: Vital Signs Temperature 97.7 F 06/21/18 06:32 Pulse Rate 86 06/21/18 06:32 Respiratory Rate 20 06/21/18 06:32 Blood Pressure 119/69 06/21/18 06:32 O2 Sat by Pulse Oximetry (%) 96 06/20/18 21:00 Constitutional: Yes: Mild Distress Eyes: Yes: WNL HENT: Yes: WNL Neck: Yes: WNL Cardiovascular: Yes: WNL Respiratory: Yes: Diminished, On Nasal O2, Wheezes Gastrointestinal: Yes: Soft Genitourinary: Yes: WNL Musculoskeletal: Yes: Back Pain, Muscle Weakness Extremities: Yes: WNL Edema: No Peripheral Pulses WNL: Yes Integumentary: Yes: WNL Wound/Incision: Yes: Clean/Dry Neurological: Yes: WNL ...Motor Strength: WNL Psychiatric: Yes: WNL Labs: CBC, BMP 06/20/18 06:30 06/20/18 06:30 Problem List - Problems (1) Cavitary lesion of lung Code(s): J98.4 - OTHER DISORDERS OF LUNG (2) Fever Code(s): R50.9 - FEVER, UNSPECIFIED (3) Hemoptysis Code(s): R04.2 - HEMOPTYSIS (4) Otitis media Code(s): H66.90 - OTITIS MEDIA, UNSPECIFIED, UNSPECIFIED EAR Qualifiers: Chronicity: acute Laterality: right Recurrence: non-recurrent (5) PNA (pneumonia) Code(s): J18.9 - PNEUMONIA, UNSPECIFIED ORGANISM (6) Rheumatoid arthritis Code(s): M06.9 - RHEUMATOID ARTHRITIS, UNSPECIFIED Assessment/Plan TB WORKUP AWAIT CULTURES AND QUANTIEFERON STUDIES REMAIN IN ISOLATION UNTIL RESULTS RETURN ID/PULM EVALS APPRECIATED NEBS TYLENOL PRN B12 IM NEBS DVT PROPHYLAXIS
[2018-06-21] MEDS: MULTIVITAMINS (DAILY MVI) TABLET (FP) PO SCH (11:17)
[2018-06-21] MEDS: ALPRAZolam 0.25 MG TABLET PO PRN (11:17)
--- NOTE | 2018-06-21 11:22 | PN ---
Progress Note (short form) - Note Progress Note: Breathing feels OK. No further hemoptysis. Afebrile. AFB smear (-) x 3. Intake & Output 06/18/18 06/19/18 06/20/18 06/21/18 23:59 23:59 23:59 23:59 Intake Total 350 1100 Balance 350 1100 Weight 174 lb 174 lb Last Vital Signs Temp Pulse Resp BP Pulse Ox 98.1 F 85 18 137/58 L 96 06/21/18 10:00 06/21/18 10:00 06/21/18 10:00 06/21/18 10:00 06/20/18 21:00 Active Medications Acetaminophen (Tylenol -) 650 mg PO Q4H PRN PRN Reason: FEVER Last Admin: 06/21/18 09:58 Dose: 650 mg Alprazolam (Xanax -) 0.25 mg PO Q8H PRN PRN Reason: ANXIETY Last Admin: 06/21/18 11:17 Dose: 0.25 mg Cyanocobalamin (Vitamin B12 Injection -) 1,000 mcg IM Q7D@1000 [facility] Last Admin: 06/21/18 11:16 Dose: 1,000 mcg Docusate Sodium (Colace -) 100 mg PO TID [facility] Last Admin: 06/21/18 06:08 Dose: Not Given Enoxaparin Sodium (Lovenox -) 40 mg SQ DAILY [facility] Last Admin: 06/21/18 09:58 Dose: 40 mg Ceftriaxone Sodium 1 gm/ (Dextrose) 50 mls @ 100 mls/hr IVPB DAILY [facility]; Protocol Last Admin: 06/21/18 09:58 Dose: 100 mls/hr Insulin Aspart (Novolog Vial Sliding Scale -) 1 vial SQ ACHS [facility]; Protocol Last Admin: 06/21/18 06:11 Dose: 2 unit Multivitamins/Minerals/Vitamin C (Tab-A-Vit -) 1 tab PO DAILY [facility] Last Admin: 06/21/18 11:17 Dose: 1 tab Neomycin/Colistin/Hydrocort/Thonzon (Coly-Mycin S -) 5 drop AD TID [facility] Stop: 06/24/18 14:01 Last Admin: 06/21/18 06:11 Dose: 5 drop Polyethylene Glycol (Miralax (For Daily Use) -) 17 gm PO BID [facility] Last Admin: 06/21/18 09:59 Dose: Not Given Rosuvastatin Calcium (Crestor -) 5 mg PO DAILY [facility] Last Admin: 06/21/18 09:58 Dose: 5 mg Sodium Chloride ([place] Nasal [place] -) 2 spray NS Q12H PRN PRN Reason: NASAL CONGESTION Last Admin: 06/19/18 21:36 Dose: 2 spray Valsartan (Diovan -) 160 mg PO DAILY [facility] Last Admin: 06/21/18 09:58 Dose: 160 mg Gen: NAD at rest Heart: RRR Lung: decreased breath sounds at the bases Abd: soft, nontender Ext: no edema Laboratory Results - last 24 hr 06/17/18 06/20/18 06/20/18 08:56 12:00 18:00 POC Glucometer 211 186 TB Test (QFT) Nil 0.05 TB Test (QFT) Mitogen >10.00 TB Test (QFT) Antigen 0.07 TB Positive Criteria 06/20/18 06/21/18 20:42 06:10 POC Glucometer 184 153 TB Test (QFT) Nil TB Test (QFT) Mitogen TB Test (QFT) Antigen TB Positive Criteria Problem List - Problems (1) Cavitary lesion of lung Code(s): J98.4 - OTHER DISORDERS OF LUNG (2) Hemoptysis Code(s): R04.2 - HEMOPTYSIS (3) PNA (pneumonia) Code(s): J18.9 - PNEUMONIA, UNSPECIFIED ORGANISM (4) Rheumatoid arthritis Code(s): M06.9 - RHEUMATOID ARTHRITIS, UNSPECIFIED A/P Hemoptysis Pneumonia Cavitary Lung Lesion Bronchiectasis Lung Nodule Rheumatoid Arthritis on DMARD HTN DM Hypercholesterolemia - antibiotics per ID - f/u AFB PCR - Monitor for further hemoptysis - Will need outpatient follow up chest imaging - DVT prophylaxis Dr Ely
[2018-06-22] MEDS: NEOMYCIN/COLISTIN/HC OTIC SUSP 5 ML BOTTLE AD SCH ×3 (05:48→21:30)
[2018-06-22] MEDS: DOCUSATE SODIUM 100 MG CAPSULE (FP) PO SCH ×3 (05:48→21:30)
[2018-06-22] MEDS: INSULIN SLIDING SCALE (NOVOLOG) 1 VIAL SQ SCH ×4 (06:05→21:31)
[2018-06-22] MEDS ORDERED: cefTRIAXone SODIUM 1 GM VIAL ONE (09:51)
[2018-06-22] MEDS ORDERED: DEXTROSE 5%-WATER - 50 ML IVPB ONE (09:51)
[2018-06-22] MEDS ORDERED: PT OWN MED DRAWER 7, Y5N ONE ×2 (09:51→14:37)
[2018-06-22] MEDS: MULTIVITAMINS (DAILY MVI) TABLET (FP) PO SCH (10:23)
[2018-06-22] MEDS: VALSARTAN 160 MG TABLET (UD) PO SCH (10:23)
[2018-06-22] MEDS: ROSUVASTATIN CA 5 MG TABLET (FP) PO SCH (10:23)
[2018-06-22] MEDS: ENOXAPARIN NA (PORCINE) 40 MG/0.4 ML DISP.SYRIN SQ SCH (10:23)
[2018-06-22] MEDS: POLYETHYLENE GLYCOL 3350 119 GM BTL PO SCH ×2 (10:23→21:31)
[2018-06-22] MEDS: CEFTRIAXONE 1 GM in DEXTROSE 5%-WATER - 50 ML IVPB SCH (10:23)
--- NOTE | 2018-06-22 11:30 | PN ---
Progress Note (short form) - Note Progress Note: Breathing feels OK. OOB off O2. No further hemoptysis. Afebrile. Intake & Output 06/19/18 06/20/18 06/21/18 06/22/18 23:59 23:59 23:59 23:59 Intake Total 350 1100 1080 300 Balance 350 1100 1080 300 Weight 174 lb Last Vital Signs Temp Pulse Resp BP Pulse Ox 98.0 F 81 18 124/69 96 06/22/18 10:00 06/22/18 10:00 06/22/18 10:00 06/22/18 10:00 06/21/18 20:25 Active Medications Acetaminophen (Tylenol -) 650 mg PO Q4H PRN PRN Reason: FEVER Last Admin: 06/21/18 09:58 Dose: 650 mg Alprazolam (Xanax -) 0.25 mg PO Q8H PRN PRN Reason: ANXIETY Last Admin: 06/21/18 11:17 Dose: 0.25 mg Cyanocobalamin (Vitamin B12 Injection -) 1,000 mcg IM Q7D@1000 [facility] Last Admin: 06/21/18 11:16 Dose: 1,000 mcg Docusate Sodium (Colace -) 100 mg PO TID [facility] Last Admin: 06/22/18 05:48 Dose: Not Given Enoxaparin Sodium (Lovenox -) 40 mg SQ DAILY [facility] Last Admin: 06/22/18 10:23 Dose: 40 mg Ceftriaxone Sodium 1 gm/ (Dextrose) 50 mls @ 100 mls/hr IVPB DAILY [facility]; Protocol Last Admin: 06/22/18 10:23 Dose: 100 mls/hr Insulin Aspart (Novolog Vial Sliding Scale -) 1 vial SQ ACHS [facility]; Protocol Last Admin: 06/22/18 06:05 Dose: Not Given Multivitamins/Minerals/Vitamin C (Tab-A-Vit -) 1 tab PO DAILY [facility] [place] Last Admin: 06/22/18 10:23 Dose: 1 tab Neomycin/Colistin/Hydrocort/Thonzon (Coly-Mycin S -) 5 drop AD TID [facility] Stop: 06/24/18 14:01 Last Admin: 06/22/18 05:48 Dose: 5 drop Polyethylene Glycol (Miralax (For Daily Use) -) 17 gm PO BID [facility] Last Admin: 06/22/18 10:23 Dose: Not Given Rosuvastatin Calcium (Crestor -) 5 mg PO DAILY [facility] Last Admin: 06/22/18 10:23 Dose: 5 mg Sodium Chloride ([place] Nasal [place] -) 2 spray NS Q12H PRN PRN Reason: NASAL CONGESTION Last Admin: 06/19/18 21:36 Dose: 2 spray Valsartan (Diovan -) 160 mg PO DAILY [facility] Last Admin: 06/22/18 10:23 Dose: 160 mg Gen: NAD at rest Heart: RRR Lung: decreased breath sounds at the bases Abd: soft, nontender Ext: no edema Laboratory Results - last 24 hr 06/21/18 06/21/18 06/21/18 12:21 17:48 20:45 POC Glucometer 225 228 283 06/22/18 05:46 POC Glucometer 150 Problem List - Problems (1) Cavitary lesion of lung Code(s): J98.4 - OTHER DISORDERS OF LUNG (2) Hemoptysis Code(s): R04.2 - HEMOPTYSIS (3) PNA (pneumonia) Code(s): J18.9 - PNEUMONIA, UNSPECIFIED ORGANISM (4) Rheumatoid arthritis Code(s): M06.9 - RHEUMATOID ARTHRITIS, UNSPECIFIED A/P Hemoptysis Pneumonia Cavitary Lung Lesion Bronchiectasis Lung Nodule Rheumatoid Arthritis on DMARD HTN DM Hypercholesterolemia - antibiotics per ID - f/u AFB PCR - Monitor for further hemoptysis - Will need outpatient follow up chest imaging - DVT prophylaxis Dr Ely
--- NOTE | 2018-06-22 11:58 | PN ---
Progress Note, Physician Chief Complaint: AWAKE ALERT NO ACUTE CHANGES - Current Medication List Current Medications: Active Medications Acetaminophen (Tylenol -) 650 mg PO Q4H PRN PRN Reason: FEVER Last Admin: 06/21/18 09:58 Dose: 650 mg Alprazolam (Xanax -) 0.25 mg PO Q8H PRN PRN Reason: ANXIETY Last Admin: 06/21/18 11:17 Dose: 0.25 mg Cyanocobalamin (Vitamin B12 Injection -) 1,000 mcg IM Q7D@1000 [facility] Last Admin: 06/21/18 11:16 Dose: 1,000 mcg Docusate Sodium (Colace -) 100 mg PO TID [facility] Last Admin: 06/22/18 05:48 Dose: Not Given Enoxaparin Sodium (Lovenox -) 40 mg SQ DAILY [facility] Last Admin: 06/22/18 10:23 Dose: 40 mg Ceftriaxone Sodium 1 gm/ (Dextrose) 50 mls @ 100 mls/hr IVPB DAILY [facility]; Protocol Last Admin: 06/22/18 10:23 Dose: 100 mls/hr Insulin Aspart (Novolog Vial Sliding Scale -) 1 vial SQ ACHS [facility]; Protocol Last Admin: 06/22/18 06:05 Dose: Not Given Multivitamins/Minerals/Vitamin C (Tab-A-Vit -) 1 tab PO DAILY [facility] Last Admin: 06/22/18 10:23 Dose: 1 tab Neomycin/Colistin/Hydrocort/Thonzon (Coly-Mycin S -) 5 drop AD TID [facility] Stop: 06/24/18 14:01 Last Admin: 06/22/18 05:48 Dose: 5 drop Polyethylene Glycol (Miralax (For Daily Use) -) 17 gm PO BID [facility] Last Admin: 06/22/18 10:23 Dose: Not Given Rosuvastatin Calcium (Crestor -) 5 mg PO DAILY [facility] Last Admin: 06/22/18 10:23 Dose: 5 mg Sodium Chloride ([place] Nasal [place] -) 2 spray NS Q12H PRN PRN Reason: NASAL CONGESTION Last Admin: 06/19/18 21:36 Dose: 2 spray Valsartan (Diovan -) 160 mg PO DAILY [facility] Last Admin: 06/22/18 10:23 Dose: 160 mg - Objective Vital Signs: Vital Signs Temperature 98.0 F 06/22/18 10:00 Pulse Rate 81 01/06/19 10:00 Respiratory Rate 18 06/22/18 10:00 Blood Pressure 124/69 06/22/18 10:00 O2 Sat by Pulse Oximetry (%) 96 06/21/18 20:25 Constitutional: Yes: No Distress Eyes: Yes: WNL HENT: Yes: WNL Neck: Yes: WNL Cardiovascular: Yes: WNL Respiratory: Yes: WNL Gastrointestinal: Yes: WNL Genitourinary: Yes: WNL Musculoskeletal: Yes: WNL Edema: No Peripheral Pulses WNL: Yes Integumentary: Yes: WNL Wound/Incision: Yes: Clean/Dry Neurological: Yes: WNL ...Motor Strength: WNL Psychiatric: Yes: WNL Labs: CBC, BMP 06/20/18 06:30 06/20/18 06:30 Problem List - Problems (1) Cavitary lesion of lung Code(s): J98.4 - OTHER DISORDERS OF LUNG (2) Fever Code(s): R50.9 - FEVER, UNSPECIFIED (3) Hemoptysis Code(s): R04.2 - HEMOPTYSIS (4) Otitis media Code(s): H66.90 - OTITIS MEDIA, UNSPECIFIED, UNSPECIFIED EAR Qualifiers: Chronicity: acute Laterality: right Recurrence: non-recurrent (5) PNA (pneumonia) Code(s): J18.9 - PNEUMONIA, UNSPECIFIED ORGANISM (6) Rheumatoid arthritis Code(s): M06.9 - RHEUMATOID ARTHRITIS, UNSPECIFIED Assessment/Plan TB WORKUP AWAIT CULTURES AND QUANTIEFERON STUDIES REMAIN IN ISOLATION UNTIL RESULTS RETURN ID/PULM EVALS APPRECIATED NEBS TYLENOL PRN B12 IM NEBS DVT PROPHYLAXIS
[2018-06-22] MEDS: ALPRAZolam 0.25 MG TABLET PO PRN (21:30)
[2018-06-23] MEDS: DOCUSATE SODIUM 100 MG CAPSULE (FP) PO SCH ×3 (05:44→21:55)
[2018-06-23] MEDS: NEOMYCIN/COLISTIN/HC OTIC SUSP 5 ML BOTTLE AD SCH ×3 (05:44→21:58)
[2018-06-23] MEDS: INSULIN SLIDING SCALE (NOVOLOG) 1 VIAL SQ SCH ×4 (07:10→21:59)
[2018-06-23] MEDS: ACETAMINOPHEN 325 MG TABLET (FP) PO PRN ×3 (07:10→22:00)
--- NOTE | 2018-06-23 10:12 | PN ---
Progress Note (short form) - Note Progress Note: Breathing feels OK. OOB to chair and comfortable on RA. No further hemoptysis. Afebrile. Intake & Output 06/20/18 06/21/18 06/22/18 06/23/18 23:59 23:59 23:59 23:59 Intake Total 1100 1080 700 200 Balance 1100 1080 700 200 Last Vital Signs Temp Pulse Resp BP Pulse Ox 97.6 F 78 18 107/51 L 96 06/23/18 06:00 06/23/18 06:00 06/23/18 06:00 06/23/18 06:00 06/22/18 21:00 Active Medications Acetaminophen (Tylenol -) 650 mg PO Q4H PRN PRN Reason: FEVER Last Admin: 06/23/18 07:10 Dose: 650 mg Alprazolam (Xanax -) 0.25 mg PO Q8H PRN PRN Reason: ANXIETY Last Admin: 06/22/18 21:30 Dose: 0.25 mg Cyanocobalamin (Vitamin B12 Injection -) 1,000 mcg IM Q7D@1000 [facility] Last Admin: 06/21/18 11:16 Dose: 1,000 mcg Docusate Sodium (Colace -) 100 mg PO TID [facility] Last Admin: 06/23/18 05:44 Dose: Not Given Enoxaparin Sodium (Lovenox -) 40 mg SQ DAILY [facility] Last Admin: 06/22/18 10:23 Dose: 40 mg Ceftriaxone Sodium 1 gm/ (Dextrose) 50 mls @ 100 mls/hr IVPB DAILY [facility]; Protocol Last Admin: 06/22/18 10:23 Dose: 100 mls/hr Insulin Aspart (Novolog Vial Sliding Scale -) 1 vial SQ ACHS [facility]; Protocol Last Admin: 06/23/18 07:10 Dose: 2 unit Multivitamins/Minerals/Vitamin C (Tab-A-Vit -) 1 tab PO DAILY [facility] Last Admin: 06/22/18 10:23 Dose: 1 tab Neomycin/Colistin/Hydrocort/Thonzon (Coly-Mycin S -) 5 drop AD TID [facility] Stop: 06/24/18 14:01 Last Admin: 06/23/18 05:44 Dose: 5 drop Polyethylene Glycol (Miralax (For Daily Use) -) 17 gm PO BID [facility] Last Admin: 06/22/18 21:31 Dose: Not Given Rosuvastatin Calcium (Crestor -) 5 mg PO DAILY [facility] Last Admin: 06/22/18 10:23 Dose: 5 mg Sodium Chloride ([place] Nasal [place] -) 2 spray NS Q12H PRN PRN Reason: NASAL CONGESTION Last Admin: 06/19/18 21:36 Dose: 2 spray Valsartan (Diovan -) 160 mg PO DAILY [facility] Last Admin: 06/22/18 10:23 Dose: 160 mg Gen: NAD at rest Heart: RRR Lung: decreased breath sounds at the bases Abd: soft, nontender Ext: no edema Laboratory Results - last 24 hr 06/22/18 06/22/18 06/22/18 12:01 17:10 20:54 POC Glucometer 230 234 298 06/23/18 05:23 POC Glucometer 160 Problem List - Problems (1) Cavitary lesion of lung Code(s): J98.4 - OTHER DISORDERS OF LUNG (2) Hemoptysis Code(s): R04.2 - HEMOPTYSIS (3) PNA (pneumonia) Code(s): J18.9 - PNEUMONIA, UNSPECIFIED ORGANISM (4) Rheumatoid arthritis Code(s): M06.9 - RHEUMATOID ARTHRITIS, UNSPECIFIED A/P Hemoptysis Pneumonia Cavitary Lung Lesion Bronchiectasis Lung Nodule Rheumatoid Arthritis on DMARD HTN DM Hypercholesterolemia - Will D/W ID about follow up of pending AFB cultures/PCR - antibiotics per ID - Monitor for further hemoptysis - Will need outpatient follow up chest imaging - DVT prophylaxis Dr Ely
[2018-06-23] MEDS ORDERED: PT OWN MED DRAWER 7, Y5N ONE (11:01)
[2018-06-23] MEDS ORDERED: cefTRIAXone SODIUM 1 GM VIAL ONE (11:01)
[2018-06-23] MEDS ORDERED: DEXTROSE 5%-WATER - 50 ML IVPB ONE (11:02)
[2018-06-23] MEDS: ENOXAPARIN NA (PORCINE) 40 MG/0.4 ML DISP.SYRIN SQ SCH (11:07)
[2018-06-23] MEDS: CEFTRIAXONE 1 GM in DEXTROSE 5%-WATER - 50 ML IVPB SCH (11:08)
[2018-06-23] MEDS: POLYETHYLENE GLYCOL 3350 119 GM BTL PO SCH ×2 (11:09→21:55)
[2018-06-23] MEDS: VALSARTAN 160 MG TABLET (UD) PO SCH (11:09)
[2018-06-23] MEDS: ROSUVASTATIN CA 5 MG TABLET (FP) PO SCH (11:09)
[2018-06-23] MEDS: MULTIVITAMINS (DAILY MVI) TABLET (FP) PO SCH (11:09)
--- NOTE | 2018-06-23 11:56 | PN ---
Progress Note, Physician Chief Complaint: patient seen and examined sitting in chair comfortable no complaints no fever wbc count is normal - Current Medication List Current Medications: Active Medications Acetaminophen (Tylenol -) 650 mg PO Q4H PRN PRN Reason: FEVER Last Admin: 06/23/18 11:45 Dose: 650 mg Alprazolam (Xanax -) 0.25 mg PO Q8H PRN PRN Reason: ANXIETY Last Admin: 06/22/18 21:30 Dose: 0.25 mg Cyanocobalamin (Vitamin B12 Injection -) 1,000 mcg IM Q7D@1000 [facility] Last Admin: 06/21/18 11:16 Dose: 1,000 mcg Docusate Sodium (Colace -) 100 mg PO TID [facility] Last Admin: 06/23/18 05:44 Dose: Not Given Enoxaparin Sodium (Lovenox -) 40 mg SQ DAILY [facility] Last Admin: 06/23/18 11:07 Dose: 40 mg Ceftriaxone Sodium 1 gm/ (Dextrose) 50 mls @ 100 mls/hr IVPB DAILY [facility]; Protocol Last Admin: 06/23/18 11:08 Dose: 100 mls/hr Insulin Aspart (Novolog Vial Sliding Scale -) 1 vial SQ ACHS [facility]; Protocol Last Admin: 06/23/18 11:45 Dose: 6 unit Multivitamins/Minerals/Vitamin C (Tab-A-Vit -) 1 tab PO DAILY [facility] Last Admin: 06/23/18 11:09 Dose: 1 tab Neomycin/Colistin/Hydrocort/Thonzon (Coly-Mycin S -) 5 drop AD TID [facility] Stop: 06/24/18 14:01 Last Admin: 06/23/18 05:44 Dose: 5 drop Polyethylene Glycol (Miralax (For Daily Use) -) 17 gm PO BID [facility] Last Admin: 06/23/18 11:09 Dose: Not Given Rosuvastatin Calcium (Crestor -) 5 mg PO DAILY [facility] Last Admin: 06/23/18 11:09 Dose: 5 mg Sodium Chloride ([place] Nasal [place] -) 2 spray NS Q12H PRN PRN Reason: NASAL CONGESTION Last Admin: 06/19/18 21:36 Dose: 2 spray Valsartan (Diovan -) 160 mg PO DAILY [facility] Last Admin: 06/23/18 11:09 Dose: 160 mg - Objective Vital Signs: Vital Signs Temperature 97.6 F 01/07/19 06:00 Pulse Rate 78 06/23/18 06:00 Respiratory Rate 18 06/23/18 06:00 Blood Pressure 107/51 L 06/23/18 06:00 O2 Sat by Pulse Oximetry (%) 96 06/22/18 21:00 Constitutional: Yes: Calm Neck: Yes: Trachea Midline Cardiovascular: Yes: Regular Rate and Rhythm, S1, S2 Respiratory: Yes: Diminished (at the bases) Gastrointestinal: Yes: Normal Bowel Sounds, Soft Edema: No Neurological: Yes: Alert, Oriented Labs: CBC, BMP 06/20/18 06:30 06/20/18 06:30 Problem List - Problems (1) Otitis media Assessment/Plan: on iv rocephin for otitis media possible perforation appreciate ENT consult ear drops Code(s): H66.90 - OTITIS MEDIA, UNSPECIFIED, UNSPECIFIED EAR Qualifiers: Chronicity: acute Laterality: right Recurrence: non-recurrent (2) PNA (pneumonia) Assessment/Plan: rocephin Code(s): J18.9 - PNEUMONIA, UNSPECIFIED ORGANISM (3) Cavitary lesion of lung Assessment/Plan: respiraoty isolation awaiting afb results from [facility] Code(s): J98.4 - OTHER DISORDERS OF LUNG
--- NOTE | 2018-06-23 14:40 | PN ---
Progress Note (short form) - Note Progress Note: cough improved no ear drainage no fever Vital Signs Period Temp Pulse Resp BP Sys/[place] Pulse Ox Last 24 Hr 97.6 F-98.1 F 78-89 18-20 107-132/51-68 95-96 cor-rrr lungs clear abd soft,nt ext no edema quantiferon gold negative sputum afb negative times 3, pcr negative times 2 a/p YUNIOR pneumonia-repeat cxray pending , on rocephin otitis media with perforation cavitary lung disease- quantiferon gold negative, sputum afb negative can d/c isolation needs repeat chest ct in one month and close pulmonary f/u RA- on Humira d/w Dr Ely Problem List - Problems (1) PNA (pneumonia) Code(s): J18.9 - PNEUMONIA, UNSPECIFIED ORGANISM (2) Hemoptysis Code(s): R04.2 - HEMOPTYSIS (3) Cavitary lesion of lung Code(s): J98.4 - OTHER DISORDERS OF LUNG (4) Rheumatoid arthritis Code(s): M06.9 - RHEUMATOID ARTHRITIS, UNSPECIFIED (5) Otitis media Code(s): H66.90 - OTITIS MEDIA, UNSPECIFIED, UNSPECIFIED EAR Qualifiers: Chronicity: acute Laterality: right Recurrence: non-recurrent
[2018-06-23] MEDS: ALPRAZolam 0.25 MG TABLET PO PRN (21:59)
[2018-06-23] MEDS ORDERED: traMADol HCL 50 MG TABLET PO ONE (23:34)
[2018-06-24] MEDS: DOCUSATE SODIUM 100 MG CAPSULE (FP) PO SCH ×2 (05:37→15:27)
[2018-06-24] MEDS: NEOMYCIN/COLISTIN/HC OTIC SUSP 5 ML BOTTLE AD SCH ×2 (06:45→15:26)
[2018-06-24] MEDS: INSULIN SLIDING SCALE (NOVOLOG) 1 VIAL SQ SCH ×2 (06:45→10:40)
--- NOTE | 2018-06-24 09:48 | PN ---
Progress Note (short form) - Note Progress Note: Breathing feels OK. OOB to chair and comfortable on RA. No further hemoptysis. Afebrile. AFB (-) x 3 PCR (-) x 2 Intake & Output 06/21/18 06/22/18 06/23/18 06/24/18 23:59 23:59 23:59 23:59 Intake Total 1080 700 520 240 Balance 1080 700 520 240 Last Vital Signs Temp Pulse Resp BP Pulse Ox 97.9 F 76 20 130/73 95 06/24/18 06:57 06/24/18 06:57 06/24/18 06:57 06/24/18 06:57 06/23/18 23:52 Active Medications Acetaminophen (Tylenol -) 650 mg PO Q4H PRN PRN Reason: FEVER Last Admin: 06/23/18 22:00 Dose: 650 mg Alprazolam (Xanax -) 0.25 mg PO Q8H PRN PRN Reason: ANXIETY Last Admin: 06/23/18 21:59 Dose: 0.25 mg Cyanocobalamin (Vitamin B12 Injection -) 1,000 mcg IM Q7D@1000 [facility] Last Admin: 06/21/18 11:16 Dose: 1,000 mcg Docusate Sodium (Colace -) 100 mg PO TID [facility] Last Admin: 06/24/18 05:37 Dose: Not Given Enoxaparin Sodium (Lovenox -) 40 mg SQ DAILY [facility] Last Admin: 06/23/18 11:07 Dose: 40 mg Ceftriaxone Sodium 1 gm/ (Dextrose) 50 mls @ 100 mls/hr IVPB DAILY [facility]; Protocol Last Admin: 06/23/18 11:08 Dose: 100 mls/hr Insulin Aspart (Novolog Vial Sliding Scale -) 1 vial SQ ACHS [facility]; Protocol Last Admin: 06/24/18 06:45 Dose: 2 unit Losartan Potassium (Cozaar -) 50 mg PO DAILY [facility] Multivitamins/Minerals/Vitamin C (Tab-A-Vit -) 1 tab PO DAILY [facility] Last Admin: 06/23/18 11:09 Dose: 1 tab Neomycin/Colistin/Hydrocort/Thonzon (Coly-Mycin S -) 5 drop AD TID [facility] Stop: 06/24/18 14:01 Last Admin: 06/24/18 06:45 Dose: 5 drop Polyethylene Glycol (Miralax (For Daily Use) -) 17 gm PO BID [facility] Last Admin: 06/23/18 21:55 Dose: Not Given Rosuvastatin Calcium (Crestor -) 5 mg PO DAILY [facility] Last Admin: 06/23/18 11:09 Dose: 5 mg Sodium Chloride ([place] Nasal [place] -) 2 spray NS Q12H PRN PRN Reason: NASAL CONGESTION Last Admin: 06/19/18 21:36 Dose: 2 spray Gen: NAD at rest Heart: RRR Lung: decreased breath sounds at the bases Abd: soft, nontender Ext: no edema Laboratory Results - last 24 hr 06/23/18 06/23/18 06/23/18 11:43 18:04 21:46 POC Glucometer 280 207 323 06/24/18 06:42 POC Glucometer 180 Problem List - Problems (1) Cavitary lesion of lung Code(s): J98.4 - OTHER DISORDERS OF LUNG (2) Hemoptysis Code(s): R04.2 - HEMOPTYSIS (3) PNA (pneumonia) Code(s): J18.9 - PNEUMONIA, UNSPECIFIED ORGANISM (4) Rheumatoid arthritis Code(s): M06.9 - RHEUMATOID ARTHRITIS, UNSPECIFIED A/P Hemoptysis Pneumonia Cavitary Lung Lesion Bronchiectasis Lung Nodule Rheumatoid Arthritis on DMARD HTN DM Hypercholesterolemia - Check final PCR - Antibiotics per ID - Monitor for further hemoptysis - Will need outpatient follow up chest imaging in 4 weeks and follow up with Dr Albrecht: May need Bronch - DVT prophylaxis Dr Ely
[2018-06-24] MEDS ORDERED: LOSARTAN POTASSIUM 50 MG TABLET (FP) PO SCH (10:00)
[2018-06-24] MEDS ORDERED: cefTRIAXone SODIUM 1 GM VIAL ONE (10:19)
[2018-06-24] MEDS ORDERED: DEXTROSE 5%-WATER - 50 ML IVPB ONE (10:19)
[2018-06-24] MEDS: MULTIVITAMINS (DAILY MVI) TABLET (FP) PO SCH (10:35)
[2018-06-24] MEDS: ROSUVASTATIN CA 5 MG TABLET (FP) PO SCH (10:36)
[2018-06-24] MEDS: CEFTRIAXONE 1 GM in DEXTROSE 5%-WATER - 50 ML IVPB SCH (10:36)
[2018-06-24] MEDS: ENOXAPARIN NA (PORCINE) 40 MG/0.4 ML DISP.SYRIN SQ SCH (10:36)
[2018-06-24] MEDS: POLYETHYLENE GLYCOL 3350 119 GM BTL PO SCH (10:36)
[2018-06-24] MEDS ORDERED: traMADol HCL 50 MG TABLET PO PRN (11:15)
--- NOTE | 2018-06-24 11:15 | PN ---
Progress Note, Physician Chief Complaint: off isolation afb 3 times negative on ivabx for YUNIOR pna ID follow up regarding iv abx duration complaing of pain in her joints not able to sleep well last night off the cong for now - Current Medication List Current Medications: Active Medications Acetaminophen (Tylenol -) 650 mg PO Q4H PRN PRN Reason: FEVER Last Admin: 06/23/18 22:00 Dose: 650 mg Alprazolam (Xanax -) 0.25 mg PO Q8H PRN PRN Reason: ANXIETY Last Admin: 06/23/18 21:59 Dose: 0.25 mg Cyanocobalamin (Vitamin B12 Injection -) 1,000 mcg IM Q7D@1000 [facility] Last Admin: 06/21/18 11:16 Dose: 1,000 mcg Docusate Sodium (Colace -) 100 mg PO TID [facility] Last Admin: 06/24/18 05:37 Dose: Not Given Enoxaparin Sodium (Lovenox -) 40 mg SQ DAILY [facility] Last Admin: 06/24/18 10:36 Dose: 40 mg Ceftriaxone Sodium 1 gm/ (Dextrose) 50 mls @ 100 mls/hr IVPB DAILY [facility]; Protocol Last Admin: 06/24/18 10:36 Dose: 100 mls/hr Insulin Aspart (Novolog Vial Sliding Scale -) 1 vial SQ ACHS [facility]; Protocol Last Admin: 06/24/18 10:40 Dose: 4 unit Losartan Potassium (Cozaar -) 50 mg PO DAILY [facility] Last Admin: 06/24/18 10:36 Dose: 50 mg Multivitamins/Minerals/Vitamin C (Tab-A-Vit -) 1 tab PO DAILY [facility] Last Admin: 06/24/18 10:35 Dose: 1 tab Neomycin/Colistin/Hydrocort/Thonzon (Coly-Mycin S -) 5 drop AD TID [facility] Stop: 06/24/18 14:01 Last Admin: 06/24/18 06:45 Dose: 5 drop Polyethylene Glycol (Miralax (For Daily Use) -) 17 gm PO BID [facility] Last Admin: 06/24/18 10:36 Dose: Not Given Rosuvastatin Calcium (Crestor -) 5 mg PO DAILY [facility] Last Admin: 06/24/18 10:36 Dose: 5 mg Sodium Chloride ([place] -) 2 spray NS Q12H PRN PRN Reason: NASAL CONGESTION Last Admin: 06/19/18 21:36 Dose: 2 spray - Objective Vital Signs: Vital Signs Temperature 97.9 F 06/24/18 06:57 Pulse Rate 76 06/24/18 06:57 Respiratory Rate 20 06/24/18 06:57 Blood Pressure 130/73 06/24/18 06:57 O2 Sat by Pulse Oximetry (%) 95 06/23/18 23:52 Constitutional: Yes: Calm Cardiovascular: Yes: Regular Rate and Rhythm, S1, S2 Respiratory: Yes: CTA Bilaterally Gastrointestinal: Yes: Normal Bowel Sounds, Soft Neurological: Yes: Alert, Oriented Labs: CBC, BMP 06/20/18 06:30 06/20/18 06:30 Problem List - Problems (1) Otitis media Assessment/Plan: on iv rocephin for otitis media possible perforation appreciate ENT consult ear drops Code(s): H66.90 - OTITIS MEDIA, UNSPECIFIED, UNSPECIFIED EAR Qualifiers: Chronicity: acute Laterality: right Recurrence: non-recurrent (2) PNA (pneumonia) Assessment/Plan: rocephin duration of iv abx per ID cxr repeat noted for atelectasis in left lung Code(s): J18.9 - PNEUMONIA, UNSPECIFIED ORGANISM (3) Cavitary lesion of lung Assessment/Plan: respiratory isolation DC afb 3 times negative quantiferon gold negative repeat ct chest in one month Code(s): J98.4 - OTHER DISORDERS OF LUNG
--- NOTE | 2018-06-24 14:18 | PN ---
Progress Note (short form) - Note Progress Note: cough improved no ear drainage no fever feels well Vital Signs Period Temp Pulse Resp BP Sys/[place] Pulse Ox Last 24 Hr 97.7 F-99.3 F 76-92 18-20 130-145/62-73 95-95 cor-rrr lungs clear abd soft,nt ext no edema CBC, BMP 06/20/18 06:30 06/20/18 06:30 Microbiology 06/23/18 11:08 Sputum - Expectorated AFB Smear Concentration - Preliminary 06/23/18 11:08 Sputum - Expectorated Direct Acid Fast Bacilli Smear - Final 06/23/18 11:08 Sputum - Expectorated Mycobacterial Culture - Preliminary 06/17/18 18:50 Blood - Peripheral Venous Blood Culture - Final NO GROWTH AFTER 5 DAYS INCUBATION 06/17/18 19:50 Blood - Peripheral Venous Blood Culture - Final NO GROWTH AFTER 5 DAYS INCUBATION 06/20/18 01:37 Sputum - Expectorated AFB Smear Concentration - Final 06/20/18 01:37 Sputum - Expectorated Direct Acid Fast Bacilli Smear - Final 06/20/18 01:37 Sputum - Expectorated Mycobacterial Culture - Preliminary 06/19/18 03:30 Sputum - Expectorated AFB Smear Concentration - Final 06/19/18 03:30 Sputum - Expectorated Direct Acid Fast Bacilli Smear - Final 06/19/18 03:30 Sputum - Expectorated Mycobacterial Culture - Preliminary 06/18/18 05:00 Sputum - Expectorated AFB Smear Concentration - Final 06/18/18 05:00 Sputum - Expectorated Direct Acid Fast Bacilli Smear - Final 06/18/18 05:00 Sputum - Expectorated Mycobacterial Culture - Preliminary 06/18/18 05:00 Sputum - Expectorated Gram Stain - Final 06/18/18 05:00 Sputum - Expectorated Sputum Culture - Final NORMAL RESPIRATORY ADRIAN 06/17/18 21:50 Urine - Urine Clean Catch Urine Culture - Final NO GROWTH OBTAINED 06/18/18 05:00 Urine For Antigen Detection Legionella Antigen - Final 06/18/18 05:00 Urine For Antigen Detection Streptococcus pneumoniae Antigen (M - Final a/p YUNIOR pneumonia-day #7 rocephin otitis media with perforation-ent f/u cavitary lung disease- quantiferon gold negative, sputum afb negative times 3, pcr negative times [address] persistent atelectasis versus slow radiographic resollution- suspect may need bronch needs close pulmonary f/u switch to augmentin for 7 days she is aware she will need close outpt f/u and may need a bronchoscopy Problem List - Problems (1) PNA (pneumonia) Code(s): J18.9 - PNEUMONIA, UNSPECIFIED ORGANISM (2) Hemoptysis Code(s): R04.2 - HEMOPTYSIS (3) Cavitary lesion of lung Code(s): J98.4 - OTHER DISORDERS OF LUNG (4) Rheumatoid arthritis Code(s): M06.9 - RHEUMATOID ARTHRITIS, UNSPECIFIED (5) Otitis media Code(s): H66.90 - OTITIS MEDIA, UNSPECIFIED, UNSPECIFIED EAR Qualifiers: Chronicity: acute Laterality: right Recurrence: non-recurrent
--- NOTE | 2018-06-24 14:19 | DS ---
Physical Examination Vital Signs: Vital Signs Temperature 99.3 F 06/24/18 10:00 Pulse Rate 92 H 06/24/18 10:00 Respiratory Rate 18 06/24/18 10:00 Blood Pressure 145/72 06/24/18 10:00 O2 Sat by Pulse Oximetry (%) 95 06/24/18 10:00 Findings/Remarks: HIEF COMPLAINT: Shortness of breath, lateral chest discomfort PCP: Dr. Jorgensen HISTORY OF PRESENT ILLNESS: 67yo F with PMHx HTN, HLD, RA, DM who presents with complaints of epistaxis and hemoptysis after waking this morning about 1teaspoon to 1 tablespoon in quantity. She reports her epistaxis resolving shortly after using tissues, however she notes some brown sputum that she exporated late. She reports going to [facility] afterwards who suggested going to the ER due to their findings on CXR and the possibility of lung Ca. Pt reports she is being seen by her compliance and control analyst Dr. Pretty who diagnosed her with a cavitary YUNIOR lesion in January of this year. She reports having a Chest CT being performed on 06/12 which showed a stable cavitary lesion and new nodule in the RLL. In addition, she reports starting Amanda for her RA for which she has taken several doses. Her last dose was 2 weeks ago and she was due again on 06/18/2018. Currently she has mild posterolateral chest wall discomfort with radiation. She denies any current shortness of breath while resting and denies any jaw claudication, diaphoresis, and radiation of her chest discomfort. Of note, pt is also complaining of R ear discomfort without any changes in hearing Constitutional: Yes: Calm Cardiovascular: Yes: Regular Rate and Rhythm, S1, S2 Respiratory: Yes: CTA Bilaterally Gastrointestinal: Yes: Normal Bowel Sounds, Soft Edema: No Labs: CBC, BMP 06/20/18 06:30 06/20/18 06:30 Discharge Summary Reason For Visit: HEMOPTYSIS,PNEUMONIA,CAVITARY LESION OF LUNG Current Active Problems Cavitary lesion of lung (Acute) Fever (Acute) Hemoptysis (Acute) Otitis media (Acute) PNA (pneumonia) (Acute) Rheumatoid arthritis (Acute) Hospital Course: HIEF COMPLAINT: Shortness of breath, lateral chest discomfort PCP: Dr. Jorgensen HISTORY OF PRESENT ILLNESS: 67yo F with PMHx HTN, HLD, RA, DM who presents with complaints of epistaxis and hemoptysis after waking this morning about 1teaspoon to 1 tablespoon in quantity. She reports her epistaxis resolving shortly after using tissues, however she notes some brown sputum that she exporated late. She reports going to [facility] afterwards who suggested going to the ER due to their findings on CXR and the possibility of lung Ca. Pt reports she is being seen by her compliance and control analyst Dr. Pretty who diagnosed her with a cavitary YUNIOR lesion in January of this year. She reports having a Chest CT being performed on 06/12 which showed a stable cavitary lesion and new nodule in the RLL. In addition, she reports starting Amanda for her RA for which she has taken several doses. Her last dose was 2 weeks ago and she was due again on 06/18/2018. in hospital found to have otits media seen by ENT startedo n iv abx also for YUNIOR pna started on abx iv change to po fu with pulm for ct chest in one month stop cong till cleared by pulm RA pain control for now afb and gold quantiferon done both negative times 3 Condition: Improved - Instructions Diet, Activity, Other Instructions: chest CT in one month follow up with Dr harmon in 2 weeks augmentin 875 po bid for 7 days Referrals: Temo Jorgensen MD [Primary Care Provider] - Disposition: HOME - Home Medications Comprehensive Discharge Medication List: Ambulatory Orders Acetaminophen [Tylenol] 650 mg PO PRN PRN 06/13/16 Insulin Degludec [Tresiba Flextouch U-100] 50 unit SQ BID 06/13/16 Rosuvastatin Calcium [Crestor] 5 mg PO DAILY 06/13/16 Valsartan [Diovan] 160 mg PO DAILY 06/13/16 Dapagliflozin Propanediol [Farxiga] 5 mg PO DAILY 06/18/18 Dexlansoprazole [Dexilant] 30 mg PO ONCE 06/18/18 Folic Acid 1 mg PO DAILY 06/18/18 Rosuvastatin [Crestor -] 10 mg PO DAILY 06/18/18
[2018-06-24 14:44] VITALS: BP 154/81; PULSE 84; TEMP 98.4
== END 2018-06-24 15:36 | disposition home or self-care (01) | DRG 194 ==
LOC: JER 16:41 → JERBED 22:34 → J8W 06-18 22:22 → OBSVTOIN 06-19 10:03
PROVIDERS: ADMIT Internal Medicine; ATTEND Family Medicine
DX: J18.9 Pneumonia, unspecified organism (principal); R04.2 Hemoptysis; E87.2 Acidosis; J98.11 Atelectasis; I10 Essential (primary) hypertension; R91.1 Solitary pulmonary nodule; E11.9 Type 2 diabetes mellitus without complications; E78.5 Hyperlipidemia, unspecified; H66.91 Otitis media, unspecified, right ear; M06.9 Rheumatoid arthritis, unspecified; M94.0 Chondrocostal junction syndrome [Tietze]; J98.4 Other disorders of lung; R04.0 Epistaxis
CPT/HCPCS: 36415; 71045-TC-FY; 71046-TC-FY; 80048; 80053; 81003; 82803; 82962; 83605; 83880; 84484; 85025; 85027; 86480; 87040; 87070; 87086; 87116; 87205; 87206; 87804; 87899; 93005; 93010; 99285-25; G0378; J0131; J7030

== ENCOUNTER 2019-01-11 15:38 | Inpatient (IN) | payer OTHER, BC ==
[2019-01-11] MEDS ORDERED: ACETAMINOPHEN 325 MG TABLET (FP) PO ONE (16:57)
[2019-01-11] MEDS ORDERED: MAG HYDROX/AL HYDROX/SIMETH 30 ML UNIT-DOSE CUP PO ONE (16:57)
[2019-01-11] MEDS ORDERED: ASPIRIN 325 MG ENTERIC COATED TABLET (FP) PO ONE (16:58)
[2019-01-11] MEDS ORDERED: MECLIZINE HCL 25 MG TABLET (FP) PO ONE (16:59)
--- NOTE | 2019-01-11 17:02 | PDOC ---
History of Present Illness - General Chief Complaint: Chest Pain Stated Complaint: CHEST PAIN Time Seen by Provider: 01/11/19 16:22 - History of Present Illness Initial Comments: Ms. Augustin is a 68 y/o female with PMH of HTN, HLD, DM, presenting today with new onset headache that was present when she woke up this morning. Reports that she woke up around 8am with the headache, describes it as constant pain over the top of her head with intermittent radiation to the occiptal and and neck region. Reports left sided vertigo (describes the room as spinning to the left) . Denies changes in vision, denies nausea/vomiting. Denies fever. Denies recent illness. Denies weakness in the arms or legs. Denies fall, denies head trauma, denies LOC. Also reports mid-sternal chest pain that started today after the headache, associated with shortness of breath on exertion. Reports that the chest pain occasionally radiates to the right side of her chest. Reports that she has had chest pain before but had a stress test done two weeks ago which was negative. She went to urgent care today and was given aspirin and sent here for the chest pain. Family history includes dad who from a cerebral hemorrhage at 37, mom who from complications of a stroke at 59, brother who from heart failure at 59. Past History - Past Medical History Allergies/Adverse Reactions: Allergies Allergy/AdvReac Type Severity Reaction Status Date / Time levofloxacin [From Levaquin] Allergy "HIVES AND Verified 06/17/18 17:02 TROUBLE BREATHING" SEAFOOD Allergy "THROAT Uncoded 06/17/18 17:02 CLOSES" Home Medications: Ambulatory Orders Rosuvastatin Calcium [Crestor] 5 mg PO DAILY 06/13/16 Folic Acid 1 mg PO DAILY 06/18/18 Losartan Potassium [Cozaar -] 50 mg PO DAILY #30 tablet MDD 1 06/24/18 Dapagliflozin Propanediol [Farxiga] 5 mg PO DAILY 01/11/19 Duloxetine HCl 30 mg PO DAILY 01/11/19 Insulin Degludec [Tresiba Flextouch U-100] 50 unit SQ BID 01/11/19 COPD: No Diabetes: Yes GI Disorders: Yes (DIVERTICULOSIS) HTN: Yes Hypercholesterolemia: Yes - Surgical History Cholecystectomy: Yes Orthopedic Surgery: Yes (BILATERAL ARTHROSCOPY KNEE) - Immunization History Immunization Up to Date: Yes - Suicide/Smoking/Psychosocial Hx Smoking Status: Yes Smoking History: Unknown if ever smoked Have you smoked in the past 12 months: No Number of Cigarettes Smoked Daily: 10 If you are a former smoker, when did you quit?: 2018 'Breaking Loose' booklet given: 04/23/18 Hx Alcohol Use: No Drug/Substance Use Hx: No Substance Use Type: None Hx Substance Use Treatment: No Review of Systems - Review of Systems Comments:: ROS GENERAL/CONSTITUTIONAL: No fever or chills. No weakness._ HEAD, EYES, EARS, NOSE AND THROAT: No change in vision. No ear pain or discharge. No sore throat._ CARDIOVASCULAR: Reports mid sternal chest pain and shortness of breath on exertion RESPIRATORY: Denies cough, hemoptysis_ GASTROINTESTINAL: No nausea, vomiting, diarrhea or constipation._ GENITOURINARY: No dysuria, frequency, or change in urination._ MUSCULOSKELETAL: No joint or muscle swelling or pain. No neck or back pain. SKIN: No rash. NEUROLOGIC: Reports headache and vertigo. ENDOCRINE: No increased thirst. No abnormal weight change_ HEMATOLOGIC/LYMPHATIC: No anemia, easy bleeding, or history of blood clots._ ALLERGIC/IMMUNOLOGIC: No hives or skin allergy._ *Physical Exam - Vital Signs Last Vital Signs Temp Pulse Resp BP Pulse Ox 97.9 F 75 18 129/68 95 01/11/19 15:45 01/11/19 15:45 01/11/19 15:45 01/11/19 15:45 01/11/19 15:45 - Physical Exam Comments: GENERAL: Awake, alert, and oriented to person/place/time, in no acute distress_ HEAD: No signs of trauma, normocephalic, atraumatic _ EYES: PERRLA, EOMI, sclera anicteric, conjunctiva clear_ ENT: Hearing grossly normal, nares patent, oropharynx clear without exudates. No uvular deviation. Moist mucosa_ NECK: Normal ROM, supple, no lymphadenopathy, JVD, or masses_ LUNGS: No distress, speaks in full sentences, clear to auscultation bilaterally _ HEART: Regular rate and rhythm, normal S1 and S2, no murmurs appreciated, peripheral pulses normal and equal bilaterally._ CHEST: midsternal chest pain not worse on palpation ABDOMEN: Soft, nontender, normoactive bowel sounds. No guarding, no rebound. No masses_ EXTREMITIES: Normal inspection, Normal range of motion, no edema. No clubbing or cyanosis_ NEUROLOGICAL: Cranial nerves II through XII grossly intact. Normal speech, normal gait, no focal sensorimotor deficits. 5/5 strength and sensation upper/ lower extremities. No ataxia. Cerebellar testing intact. SKIN: Warm, Dry, normal turgor, no rashes or lesions noted. ED Treatment Course - LABORATORY CBC & Chemistry Diagram: 01/11/19 17:11 01/11/19 17:11 - RADIOLOGY Radiology Studies Ordered: Category Date Time Status HEAD CT WITHOUT CONTRAST [CT] Stat CT Scan 01/11/19 16:42 Ordered CHEST X-RAY PORTABLE* [RAD] Stat Radiology 01/11/19 16:41 Ordered Medical Decision Making - Medical Decision Making 68F with hx of chest pain, HTN, HLD, DM, and family cardiac hx, presenting with new onset headache that started when she woke up. Describes headache as constant at the top of the head, radiating intermittently to occipital region, with vertigo component. No neuro findings. HEART score 4. Obtain CBC, CMP, CXR, EKG, troponin. Plan to obtain CT of the head w/o contrast given that this is a new headache and her risk factors. 01/11/19 1630 EKG shows NSR 69 bpm, no axis deviation, no ST elevation or depression, QTc 383ms. 01/11/19 19:06 CT of the head shows no acute intracranial process, no hemorrhage, no masses. 01/11/19 2030 repeat troponin wnl. HEART score 4. Given her risk factors and family history, will plan to admit to tele obs. 01/11/19 22:15 Spoke with the hospitalist information broker who will admit the patient. *DC/Admit/Observation/Transfer Diagnosis at time of Disposition: Chest pain Qualifiers: Chest pain type: unspecified Qualified Code(s): R07.9 - Chest pain, unspecified - Discharge Dispostion Condition at time of disposition: Stable Decision to Admit order: Yes - Referrals Referrals: Temo Jorgensen MD [Primary Care Provider] - - Patient Instructions - Post Discharge Activity
[2019-01-11] MEDS ORDERED: MECLIZINE HCL 25 MG TABLET (FP) ONE (17:04)
[2019-01-11] MEDS ORDERED: ACETAMINOPHEN 325 MG TABLET (FP) ONE (17:04)
[2019-01-11] MEDS ORDERED: MAG HYDROX/AL HYDROX/SIMETH 30 ML UNIT-DOSE CUP ONE (17:04)
[2019-01-11 17:30] LABS: BASO % 0.9 % (0-2.0); EOS % 0.9 % (0-4.5); LYMPH % 44.1 % (8-40); MCHC 34.2 g/dl (32.0-36.0); MEAN CELL VOLUME 99.4 fl (80-96); MEAN PLT VOLUME 9.4 fl (7.5-11.1); MONO % 5.5 % (3.8-10.2); NEUT % 48.6 % (42.8-82.8); PLATELET COUNT 186 K/MM3 (134-434); RBC 4.13 M/mm3 (3.60-5.2); RDW 13.9 % (11.6-15.6); WHITE BLOOD COUNT 9.3 K/mm3 (4.0-10.0)
[2019-01-11 17:57] LABS: BILIRUBIN,TOTAL 0.3 mg/dL (0.2-1); BLOOD UREA NITROGEN 10.8 mg/dL (7-18); CALCIUM 9.3 mg/dL (8.5-10.1); CREATININE 0.6 mg/dL (0.55-1.3); POTASSIUM 4.3 mmol/L (3.5-5.1); TOT PROT 7.2 g/dl (6.4-8.2)
[2019-01-11 18:04] LABS: INR 1.04 (0.83-1.09); PROTHROMBIN TIME (PATIENT) 12.3 SEC (9.7-13.0)
--- NOTE | 2019-01-11 19:43 | PDOC ---
Documentation entered by Rosa Babin SCRIBE, acting as scribe for Dara Howe MD. Dara Howe MD: This documentation has been prepared by the Olaf brown Mackenzie, SCRIBE, under my direction and personally reviewed by me in its entirety. I confirm that the documentation accurately reflects all work , treatment, procedures, and medical decision making performed by me. Attending Attestation - Resident Resident Name: Ramiro Munguia - ED Attending Attestation I have performed the following: I have examined & evaluated the patient, The case was reviewed & discussed with the resident, I agree w/resident's findings & plan - HPI HPI: 01/11/19 17:32 wnwd 68 yo female p/w midchest pain that is non radiating and increasing pain/ she also has had a pressure oin the top of her headache. She does not normally get headaches head ncat eyes gurvinder eomi neck supple lungs cat b/l cvs [id number] abd nontender skin warm and dry neuro axox3,ambulatory,no gross focal neuro deficits psych appropriate 01/11/19 18:01 - Physicial Exam PE: 01/12/19 00:55 Please see the completed physical exam above - Medical Decision Making 01/11/19 18:04 first troponin is negative 01/11/19 21:04 pt has multiple risk factors but has never had angina before, currently pain free ct scan head no acute intracranial pathology will admit to OBS tele
[2019-01-11] MEDS ORDERED: METOCLOPRAMIDE HCL INJECTION 10 MG/2 ML VIAL IVPUSH ONE (20:55)
[2019-01-11] MEDS ORDERED: METOCLOPRAMIDE HCL INJECTION 10 MG/2 ML VIAL ONE (21:08)
--- NOTE | 2019-01-11 23:27 | HP ---
CHIEF COMPLAINT: Chest pain, headache PCP: Dr. Jorgensen HISTORY OF PRESENT ILLNESS: 68 year old female with PMHX of HLD, HTN, DM, RA arrived to ED with chest pain ( mid-sternal, pressure, sob on exertion, radiates to right side of chest, pain 7/10) and headache ( constant, around occipital/neck region , dizziness, Nausea, diarrhea x2 . Due to the symptoms patient initially went to Urgent care where she to given ASA, nitroglcerin and sent to ER for further evaluation. Patient denies changes in LOC, changes in vision, fall, head trauma. ER course was notable for: (1) CT head: neg (2)EKG: NSR (3)CXR: negative Recent Travel: NO PAST MEDICAL HISTORY: HTN, DM , RA HLD, Diverticulosis PAST SURGICAL HISTORY: b/l knee arthroscopic sx, Cholecystectomy Social History: Smokin-4 cig a day Alcohol: no Drugs: no Family History: Mother: (59)stroke , Father (39) has cerebral hemorrhage, brother (59) CHF AllergiesL: levofloxacin [From Levaquin] Allergy (Verified 06/17/18 17:02) "HIVES AND TROUBLE BREATHING" SEAFOOD Allergy (Uncoded 06/17/18 17:02) "THROAT CLOSES" HOME MEDICATIONS: Home Medications Medication Instructions Recorded Rosuvastatin Calcium [Crestor] 5 mg PO DAILY 06/13/16 Folic Acid 1 mg PO DAILY 06/18/18 Losartan Potassium [Cozaar -] 50 mg PO DAILY #30 tablet MDD 1 06/24/18 Dapagliflozin Propanediol [Farxiga] 5 mg PO DAILY 01/11/19 Duloxetine HCl 30 mg PO DAILY 01/11/19 Insulin Degludec [Tresiba 50 unit SQ BID 01/11/19 Flextouch U-100] REVIEW OF SYSTEMS CONSTITUTIONAL: +dizziness, Absent: fever, chills, diaphoresis, generalized weakness, malaise, loss of appetite, weight change HEENT: + headache Absent: rhinorrhea, nasal congestion, throat pain, throat swelling, difficulty swallowing, mouth swelling, ear pain, eye pain, visual changes CARDIOVASCULAR: + CP, SOB on exertion RESPIRATORY: + shortness of breath on exertion, Absent: cough,wheezing, stridor , hemoptysis GASTROINTESTINAL: +nausea + diarrhea, Absent: abdominal pain, abdominal distension,vomiting constipation, melena, hematochezia GENITOURINARY: Absent: dysuria, frequency, urgency, hesitancy, hematuria, flank pain, genital pain MUSCULOSKELETAL: Absent: myalgia, arthralgia, joint swelling, back pain, neck pain SKIN: Absent: rash, itching, pallor NEUROLOGIC: +dizziness; absent: unsteady gait, seizure, mental status changes, bladder or bowel incontinence PSYCHIATRIC: Absent: anxiety, depression, suicidal or homicidal ideation, hallucinations. PHYSICAL EXAMINATION Vital Signs - 24 hr 01/11/19 01/11/19 15:45 19:34 Temperature 97.9 F 98 F Pulse Rate 75 Pulse Rate [ 74 Apical] Respiratory 18 18 Rate Blood Pressure 129/68 Blood Pressure 141/58 L [Right Arm] O2 Sat by Pulse 95 96 Oximetry (%) GENERAL: Awake, alert, and fully oriented, in no acute distress at this time HEENT: NC/AT, EOMI, PERRLA, no JVD LUNGS: Breath sounds equal, clear to auscultation bilaterally. No wheezes, and no crackles HEART: Regular rate and rhythm, normal S1 and S2 without murmur, rub or gallop; +chest pain midsternal ABDOMEN: Soft, nontender, not distended, normoactive bowel sounds, no guarding, no rebound, no masses. MUSCULOSKELETAL: Normal range of motion at all joints. No bony deformities or tenderness. No CVA tenderness. NEUROLOGICAL: Cranial nerves II-XII intact. Normal speech. Normal gait. PSYCHIATRIC: Cooperative. Good eye contact. Appropriate mood and affect. SKIN: Warm, dry, normal turgor, no rashes or lesions noted, normal capillary refill. Laboratory Results - last 24 hr 01/11/19 01/11/19 01/11/19 17:11 17:11 17:11 WBC 9.3 RBC 4.13 Hgb 14.0 Hct 41.0 MCV 99.4 H MCH 34.0 H MCHC 34.2 RDW 13.9 Plt Count 186 D MPV 9.4 Absolute Neuts (auto) 4.5 Neutrophils % 48.6 D Lymphocytes % 44.1 H D Monocytes % 5.5 Eosinophils % 0.9 Basophils % 0.9 Nucleated RBC % 0 PT with INR INR PTT (Actin FS) Sodium 143 Potassium 4.3 Chloride 107 Carbon Dioxide 31 Anion Gap 5 L BUN 10.8 Creatinine 0.6 Est GFR (CKD-EPI)AfAm 109.31 Est GFR (CKD-EPI)NonAf 94.32 Random Glucose 77 Calcium 9.3 Total Bilirubin 0.3 AST 37 ALT 39 Alkaline Phosphatase 119 H Creatine Kinase 104 Troponin I < 0.02 Total Protein 7.2 Albumin 4.0 01/11/19 01/11/19 01/11/19 17:11 17:11 20:16 WBC RBC Hgb Hct MCV MCH MCHC RDW Plt Count MPV Absolute Neuts (auto) Neutrophils % Lymphocytes % Monocytes % Eosinophils % Basophils % Nucleated RBC % PT with INR 12.30 INR 1.04 PTT (Actin FS) 31.4 Sodium Potassium Chloride Carbon Dioxide Anion Gap BUN Creatinine Est GFR (CKD-EPI)AfAm Est GFR (CKD-EPI)NonAf Random Glucose Calcium Total Bilirubin AST ALT Alkaline Phosphatase Creatine Kinase 77 Troponin I < 0.02 Total Protein Albumin ASSESSMENT/PLAN: 68 year old female with PMHX of HLD, HTN, DM, RA arrived to ED with chest pain ( mid-sternal, pressure, sob on exertion, radiates to right side of chest, pain 7/10) and headache ( constant, around occipital/neck region , dizziness, Nausea, diarrhea x2 . Due to the symptoms patient initially went to Urgent care where she to given ASA, nitroglcerin and sent to ER for further evaluation. Chest pain R/o ACS - EKG: NSR no acute finding - CXR: negative - CT head: no acute finding - Trops: negative - In ED given Meclizine for dizziness - In ED given Metoclopramide, Maalox for nausea -Given ASA 325 x1 - consider cardiology follow up in [place] due to family history ?? stress test done ? if not may need HTN - Conitnue with Cozaar HLD - continue with crestor DM - Continue with Degludec 50 units BID - Continue with Farxiga - Problem List - Problem (1) HTN (hypertension) Code(s): I10 - ESSENTIAL (PRIMARY) HYPERTENSION (2) HLD (hyperlipidemia) Code(s): E78.5 - HYPERLIPIDEMIA, UNSPECIFIED (3) Diabetes Code(s): E11.9 - TYPE 2 DIABETES MELLITUS WITHOUT COMPLICATIONS (4) Chest pain Code(s): R07.9 - CHEST PAIN, UNSPECIFIED Qualifiers: Chest pain type: unspecified Qualified Code(s): R07.9 - Chest pain, unspecified (5) Rheumatoid arthritis Code(s): M06.9 - RHEUMATOID ARTHRITIS, UNSPECIFIED Visit type - Emergency Visit Emergency Visit: Yes ED Registration Date: 01/11/19 Care time: The patient presented to the Emergency Department on the above date and was hospitalized for further evaluation of their emergent condition. - New Patient This patient is new to me today: Yes Date on this admission: 01/11/19 - Critical Care Critical Care patient: No
[2019-01-12 00:52] VITALS: BMI 25.2
[2019-01-12 06:25] LABS: HEMATOCRIT 38.6 % (32.4-45.2); HEMOGLOBIN 13.3 GM/dL (10.7-15.3); MCH 33.9 pg (25.7-33.7); MCHC 34.5 g/dl (32.0-36.0); MEAN CELL VOLUME 98.3 fl (80-96); MEAN PLT VOLUME 9.3 fl (7.5-11.1); PLATELET COUNT 170 K/MM3 (134-434); RBC 3.93 M/mm3 (3.60-5.2); RDW 14.4 % (11.6-15.6); WHITE BLOOD COUNT 8.3 K/mm3 (4.0-10.0)
[2019-01-12 07:39] LABS: BLOOD UREA NITROGEN 22.2 mg/dL (7-18); CALCIUM 8.1 mg/dL (8.5-10.1); POTASSIUM 3.8 mmol/L (3.5-5.1)
[2019-01-12] MEDS: FOLIC ACID 1 MG TABLET (FP) PO SCH (09:41)
[2019-01-12] MEDS: HEPARIN NA (PORCINE) 5,000 UNITS/ML 1ML VIAL SQ SCH ×2 (09:41→22:52)
[2019-01-12] MEDS: DULoxetine HCL 30 MG CAPSULE.DR PO SCH (09:42)
[2019-01-12] MEDS: LOSARTAN POTASSIUM 50 MG TABLET (FP) PO SCH (09:42)
[2019-01-12] MEDS ORDERED: PATIENT'S OWN MEDICATION (NON-FORMULARY) (Dapagliflozin Propanediol [Farxiga] 5 MG) PO SCH (10:00)
[2019-01-12] MEDS ORDERED: INSULIN DEGLUDEC SQ SCH (10:00)
[2019-01-12] MEDS ORDERED: IBUPROFEN 400 MG TABLET (FP) PO PRN (11:09)
[2019-01-12] MEDS ORDERED: MECLIZINE HCL 25 MG TABLET (FP) PO PRN (11:10)
--- NOTE | 2019-01-12 11:16 | PN ---
Progress Note, Physician Chief Complaint: patient seen and examined says her dizzness is much better and so is headache used meclizine one dose yesterday wants advil for pain if needed BP is better today, no chest pressure - Current Medication List Current Medications: Active Medications Duloxetine HCl (Cymbalta -) 30 mg PO DAILY [facility] Last Admin: 01/12/19 09:42 Dose: 30 mg Folic Acid (Folic Acid -) 1 mg PO DAILY [facility] Last Admin: 01/12/19 09:41 Dose: 1 mg Heparin Sodium (Porcine) (Heparin -) 5,000 unit SQ BID [facility] Last Admin: 01/12/19 09:41 Dose: 5,000 unit Ibuprofen (Motrin -) 400 mg PO Q6H PRN PRN Reason: FEVER Losartan Potassium (Cozaar -) 50 mg PO DAILY [facility] Last Admin: 01/12/19 09:42 Dose: 50 mg Meclizine HCl (Antivert -) 25 mg PO TID PRN PRN Reason: VERTIGO Non-Formulary Medication (Dapagliflozin Propanediol [Farxiga]) 5 mg PO DAILY [facility] Non-Formulary Medication (Insulin Degludec [Tresiba Flextouch U-100]) 50 unit SQ BID [facility] Rosuvastatin Calcium (Crestor -) 5 mg PO [facility] - Objective Vital Signs: Vital Signs Temperature 98.2 F 01/12/19 06:33 Pulse Rate 76 01/12/19 06:33 Respiratory Rate 18 01/12/19 07:26 Blood Pressure 141/71 01/12/19 06:33 O2 Sat by Pulse Oximetry (%) 99 01/12/19 07:26 Constitutional: Yes: Calm Cardiovascular: Yes: Regular Rate and Rhythm, S1, S2 Respiratory: Yes: CTA Bilaterally Gastrointestinal: Yes: Normal Bowel Sounds, Soft Edema: No Neurological: Yes: Alert, Oriented Labs: CBC, BMP 01/12/19 05:20 01/12/19 05:20 INR, PTT INR 1.04 (0.83-1.09) 01/11/19 17:11 Problem List - Problems (1) Diabetes Assessment/Plan: bgm insulin sliding scale Code(s): E11.9 - TYPE 2 DIABETES MELLITUS WITHOUT COMPLICATIONS Qualifiers: Diabetes mellitus type: type 2 (2) HLD (hyperlipidemia) Assessment/Plan: crestor Code(s): E78.5 - HYPERLIPIDEMIA, UNSPECIFIED (3) HTN (hypertension) Assessment/Plan: losartan 50mg BP is better controlled per patient her BP was in 200 systolic at home prior to admission Code(s): I10 - ESSENTIAL (PRIMARY) HYPERTENSION (4) Headache Assessment/Plan: with dizziness meclizine prn neurology consult CT head done Code(s): R51 - HEADACHE (5) Chest pain Assessment/Plan: aspirn statin echo ce 2 sets negative cardiology consult Code(s): R07.9 - CHEST PAIN, UNSPECIFIED Qualifiers: Chest pain type: unspecified Qualified Code(s): R07.9 - Chest pain, unspecified
[2019-01-12] MEDS ORDERED: SUMAtriptan SUCCINATE 50 MG TABLET PO SCH (14:00)
--- NOTE | 2019-01-12 14:08 | CONSULT ---
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 PMHX: HTN, IDDM, HLD, previous nicotine use. On: rosuvastatin, folic acid, losartan, dapagliflozin, duloxetine, insulin. S/P B/L TKR and R CTR. Awoke yesterday AM with holocranial headache "like my head was going to explode " with photophobia, phonophobia, nausea, kinesiophobia, "dizziness." Also with acute tingling down left IV, V fingers concurrently, since resolved. Took BP at home and remained elevated 180s-200 systolic. Also had associated chest pains and after resting for a few hours, went to urgent care and was transferred by ambulance to hospital. Relief of nausea with IV metocloporamide. Min relief of headache with ibuprofen , tylenol, meclizine. Notes previous headaches infrequent in nature and lessened after of last child. FH++ : All 4 daughters have GE's (one of whom is under my care). Review of systems sign for chronic insomnia and recurrent awakenings due to "whole body" numbness and tingling. Head CT (reviewed): Normal study. EKG NSR REHANA: Mod obese. Bps 120s-140s/60. Cor reg. No bruit. Neck supple. NEURO: Awake, alert, responsive. Ox X 3 CNII-CNXII: Normal without nystagmus. No facial. Motor: No drift. Strength normal. Reflexes normal,except reduced AJ' s. Plantars silent. Coordination: No FTN dystaxia. Sensation: Normal to vibration. Romberg +/- Gait: Normal including heels, toes. Impression: Normal neurological exam. Complicated Migraine would best explain the left arm paresthesiae. However cannot rule out TIA. Restless Limbs Syndrome (RLS) Suggest: MRI of brain (C-) D/C Ibuprofen, Tylenol, Meclizine Add Sumatriptan 50-100 mg prn for migraine Await cardiology consult Would recommend adding cardioselective Beta-Lino for both BP and migraine prevention Neurology f/u as out patient for migraine and RLS Thank you very much, James Liao MD
--- NOTE | 2019-01-12 14:59 | ECHO ---
Name: IRIS ROMAN Exam:Adult Echocardiogram Study Date: 01/12/2019 12:13 PM Age: 68 yrs Reason For Study: ef Height: 69 in Weight: 171 lb BSA: 1.9 m2 MMode/2D Measurements & Calculations IVSd: 1.2 cm Ao root diam: 2.6 cm LVIDd: 4.0 cm LA dimension: 3.1 cm LVIDs: 3.0 cm LVPWd: 1.0 cm EDV(Teich): 69.2 ml LVOT diam: 2.0 cm ESV(Teich): 36.3 ml Doppler Measurements & Calculations MV E max maximus: 71.8 cm/sec Ao V2 max: 156.1 cm/sec MV A max maximus: 72.8 cm/sec Ao max P.7 mmHg MV E/A: 0.99 MV dec time: 0.20 sec GREGORY(V,D): 2.4 cm2 LV V1 max P.6 mmHg TR max maximus: 211.7 cm/sec LV V1 max: 117.9 cm/sec TR max P.9 mmHg PA V2 max: 111.3 cm/sec Med Peak E' Maximus: 6.0 cm/sec PA max P.0 mmHg Med E/e': 12.0 Lat Peak E' Maximus: 9.7 cm/sec Lat E/e': 7.4 PI Vmax: 88.2 cm/sec Procedure A complete two-dimensional transthoracic echocardiogram was performed (2D, M-mode, Doppler and color flow Doppler). Technically limited study. Left Ventricle The left ventricle is normal in size. There is mild concentric left ventricular hypertrophy. Left beth tricular systolic function is normal. Ejection Fraction = 60-65%. No regional wall motion abnormalities noted. Right Ventricle The right ventricle is not well visualized. Atria The left atrial size is normal. Right atrium not well visualized. Mitral Valve The mitral valve is normal in structure and function. There is no mitral regurgitation noted. Tricuspid Valve The tricuspid valve is not well visualized. Aortic Valve The aortic valve is normal in structure and function. No aortic regurgitation is present. Pulmonic Valve The pulmonic valve is not well visualized. Great Vessels The aortic root is normal size. Pericardium/Pleura There is no pericardial effusion. Interpretation Summary Technically limited study The left ventricle is normal in size. There is mild concentric left ventricular hypertrophy. Left ventricular systolic function is normal. No regional wall motion abnormalities noted. Ejection Fraction = 60-65%. The right ventricle is not well visualized. The left atrial size is normal. No significant valvular regurgitations There is no pericardial effusion. Yakov Johnson MD 01/12/2019 02:58 PM
--- NOTE | 2019-01-12 16:07 | CON.CARD ---
Consult Consult Specialty:: Cardiology Reason for Consultation:: Chest Pain. High BP's - History of Present Illness Chief Complaint: Chest pain. Headache History of Present Illness: This is a 68 year old female with a PMH of HTN, HLD, and DM. She has been an intermittent smoker for about 30 years. She presented to the ED 01/11/19 with a severe headache. In addition, she also reported chest pain which she described as mid sternal and non radiating. This was associated with nausea. She took her BP at home and noted elevated readings of 200/100 mmHg. About 2 weeks ago she had an outpatient stress test which she thinks was negative. Presently she is chest pain free. Troponin is negative x3 Echocardiogram 01/12/19 is NL LV and RV function with mild LVH - Past Medical History Cardio/Vascular: Yes: HTN Rheumatology: Yes: Rheumatoid Arthritis - Alcohol/Substance Use Hx Alcohol Use: No - Smoking History Smoking history: Unknown if ever smoked Have you smoked in the past 12 months: No Aproximately how many cigarettes per day: 10 If you are a former smoker, when did you quit?: 2018 Home Medications - Allergies Allergies/Adverse Reactions: Allergies Allergy/AdvReac Type Severity Reaction Status Date / Time levofloxacin [From Levaquin] Allergy "HIVES AND Verified 06/17/18 17:02 TROUBLE BREATHING" SEAFOOD Allergy "THROAT Uncoded 06/17/18 17:02 CLOSES" - Home Medications Home Medications: Ambulatory Orders Rosuvastatin Calcium [Crestor] 5 mg PO DAILY 06/13/16 Folic Acid 1 mg PO DAILY 06/18/18 Losartan Potassium [Cozaar -] 50 mg PO DAILY #30 tablet MDD 1 06/24/18 Dapagliflozin Propanediol [Farxiga] 5 mg PO DAILY 01/11/19 Duloxetine HCl 30 mg PO DAILY 01/11/19 Insulin Degludec [Tresiba Flextouch U-100] 50 unit SQ BID 01/11/19 Vital Signs: Vital Signs Temperature 98 F 01/12/19 14:10 Pulse Rate 75 01/12/19 14:10 Respiratory Rate 19 01/12/19 14:10 Blood Pressure 140/68 01/12/19 14:10 O2 Sat by Pulse Oximetry (%) 99 01/12/19 07:26 Constitutional: Yes: No Distress HENT: Yes: WNL Neck: Yes: WNL Respiratory: Yes: CTA Bilaterally Gastrointestinal: Yes: Soft Cardiovascular: Yes: Regular Rate and Rhythm Heart Sounds: Yes: S1, S2 Extremities: Yes: WNL Edema: No Neurological: Yes: Alert, Oriented - Other Data Labs, Other Data: CBC, BMP 01/12/19 05:20 01/12/19 05:20 INR, PTT INR 1.04 (0.83-1.09) 01/11/19 17:11 Troponin, BNP 01/11/19 01/11/19 01/12/19 17:11 20:16 11:32 Troponin I < 0.02 < 0.02 < 0.02 Troponin, BNP 01/11/19 01/11/19 01/12/19 17:11 20:16 11:32 Troponin I < 0.02 < 0.02 < 0.02 Assessment/Plan 68 year old female with a PMH of HTN, HLD, and DM. She has been an intermittent smoker for about 30 years. She presented to the ED 01/11/19 with a severe headache. In addition, she also reported chest pain which she described as mid sternal and non radiating. This was associated with nausea. She took her BP at home and noted elevated readings of 200/100 mmHg. About 2 weeks ago she had an outpatient stress test which she thinks was negative. Presently she is chest pain free. Troponin is negative x3 Echocardiogram 01/12/19 is NL LV and RV function with mild LVH Chest Pain Would OPT for a Lexican (her stress test 2 weeks ago was not a nuclear stress test) This can be done either as an inpatient or an outpatient Continue ASA but lower the dose to 81 mg daily Continue statin therapy BP was high with chest pain but no clinical evidence aortic dissection (pulses are equal, no wide mediastinum on CXR, no troponins) HTN Presently 140/68 mmHg HR 75 BPM Contiue Losartan 50 mg PO daily States that BP's at home are usually under good control so would not add to regimen at this time
[2019-01-12] MEDS ORDERED: SUMAtriptan SUCCINATE 50 MG TABLET PO PRN (16:23)
[2019-01-12] MEDS ORDERED: PT OWN MED DRAWER 7, Y5N ONE ×2 (17:48→22:21)
[2019-01-12] MEDS ORDERED: ROSUVASTATIN CA 5 MG TABLET (FP) PO SCH (22:00)
[2019-01-13 07:02] VITALS: TEMP 98
[2019-01-13 08:21] LABS: ALBUMIN 3.8 g/dl (3.4-5.0); BILIRUBIN,TOTAL 0.3 mg/dL (0.2-1); BLOOD UREA NITROGEN 10.4 mg/dL (7-18); CALCIUM 8.6 mg/dL (8.5-10.1); CREATININE 0.6 mg/dL (0.55-1.3); POTASSIUM 4.7 mmol/L (3.5-5.1); TOT PROT 6.6 g/dl (6.4-8.2)
--- NOTE | 2019-01-13 08:36 | PN ---
Progress Note, Physician Chief Complaint: no cp headache is improved tele neg History of Present Illness: 68 year old female with a PMH of HTN, HLD, and DM. She has been an intermittent smoker for about 30 years. She presented to the ED 01/11/19 with a severe headache. In addition, she also reported chest pain which she described as mid sternal and non radiating. This was associated with nausea. She took her BP at home and noted elevated readings of 200/100 mmHg. About 2 weeks ago she had an outpatient stress test which she thinks was negative. Presently she is chest pain free. Troponin is negative x3 Echocardiogram 01/12/19 is NL LV and RV function with mild LVH - Current Medication List Current Medications: Active Medications Duloxetine HCl (Cymbalta -) 30 mg PO DAILY [facility] Last Admin: 01/12/19 09:42 Dose: 30 mg Folic Acid (Folic Acid -) 1 mg PO DAILY [facility] Last Admin: 01/12/19 09:41 Dose: 1 mg Heparin Sodium (Porcine) (Heparin -) 5,000 unit SQ BID [facility] Last Admin: 01/12/19 22:52 Dose: 5,000 unit Losartan Potassium (Cozaar -) 50 mg PO DAILY [facility] Last Admin: 01/12/19 09:42 Dose: 50 mg Non-Formulary Medication (Dapagliflozin Propanediol [Farxiga]) 5 mg PO DAILY [facility] Non-Formulary Medication (Insulin Degludec [Tresiba Flextouch U-100]) 50 unit SQ BID [facility] Rosuvastatin Calcium (Crestor -) 5 mg PO HS [facility] Last Admin: 01/12/19 22:52 Dose: 5 mg Sumatriptan Succinate (Imitrex -) 50 mg PO ONCE [facility] Last Admin: 01/12/19 17:49 Dose: Not Given Sumatriptan Succinate (Imitrex -) 50 mg PO PRN PRN PRN Reason: HEADACHE Last Admin: 01/12/19 22:53 Dose: 50 mg - Objective Vital Signs: Vital Signs Temperature 98.0 F 01/13/19 06:00 Pulse Rate 70 01/13/19 06:00 Respiratory Rate 18 01/13/19 06:00 Blood Pressure 114/56 L 01/13/19 06:00 O2 Sat by Pulse Oximetry (%) 98 01/12/19 21:00 Constitutional: Yes: No Distress, Calm Eyes: Yes: EOM Intact HENT: Yes: Normocephalic Neck: Yes: Supple, Trachea Midline Cardiovascular: Yes: Regular Rate and Rhythm Respiratory: Yes: CTA Bilaterally Gastrointestinal: Yes: Normal Bowel Sounds, Soft Extremities: Yes: WNL Edema: No Peripheral Pulses WNL: Yes Labs: CBC, BMP 01/12/19 05:20 01/13/19 05:56 INR, PTT INR 1.04 (0.83-1.09) 01/11/19 17:11 Assessment/Plan 68 year old female with a PMH of HTN, HLD, and DM. She has been an intermittent smoker for about 30 years. She presented to the ED 01/11/19 with a severe headache. In addition, she also reported chest pain which she described as mid sternal and non radiating. This was associated with nausea. She took her BP at home and noted elevated readings of 200/100 mmHg. About 2 weeks ago she had an outpatient stress test which she thinks was negative. Presently she is chest pain free. Troponin is negative x3 Echocardiogram 01/12/19 is NL LV and RV function with mild LVH Chest Pain Would OPT for a Lexican (her stress test 2 weeks ago was not a nuclear stress test) This can be done either as an outpatient, she wishes to do it this way. Continue ASA but lower the dose to 81 mg daily Continue statin therapy BP was high with chest pain but no clinical evidence aortic dissection (pulses are equal, no wide mediastinum on CXR, no troponins) HTN Contiue Losartan 50 mg PO daily States that BP's at home are usually under good control so would not add to regimen at this time
[2019-01-13 08:40] VITALS: BP 137/68; PULSE 72
[2019-01-13] MEDS: LOSARTAN POTASSIUM 50 MG TABLET (FP) PO SCH (09:01)
[2019-01-13] MEDS: HEPARIN NA (PORCINE) 5,000 UNITS/ML 1ML VIAL SQ SCH (09:01)
[2019-01-13] MEDS: FOLIC ACID 1 MG TABLET (FP) PO SCH (09:01)
[2019-01-13] MEDS: DULoxetine HCL 30 MG CAPSULE.DR PO SCH (09:01)
--- NOTE | 2019-01-13 09:31 | EKG ---
Test Reason : Blood Pressure : / mmHG Vent. Rate : 069 BPM Atrial Rate : 069 BPM P-R Int : 166 ms QRS Dur : 080 ms QT Int : 358 ms P-R-T Axes : 037 011 037 degrees QTc Int : 383 ms NORMAL SINUS RHYTHM NONSPECIFIC T WAVE ABNORMALITY ABNORMAL ECG WHEN COMPARED WITH ECG OF 17-JUN-2018 20:44, PREMATURE ATRIAL COMPLEXES ARE NO LONGER PRESENT NONSPECIFIC T WAVE ABNORMALITY NOW EVIDENT IN ANTERIOR LEADS Confirmed by Ramiro Caruso MD ([id number]) on 01/13/2019 9:30:47 AM Referred By: Confirmed By:Ramiro Caruso MD
--- NOTE | 2019-01-13 09:56 | PN ---
Progress Note (short form) - Note Progress Note: NEUROLOGY PROGRESS:
--- NOTE | 2019-01-13 10:02 | PN ---
Progress Note (short form) - Note Progress Note: NEUROLOGY PROGRESS: Events reviewed and discussed with staff. Cardiology consult read and appreciated. Found sleeping, resting comfortably. Reports with sumatriptan x 1 resulted in headache. resolution. Was able to ambulate independently to bathroom without "dizzy" feeling. RHEANA: sitting 133/80 supine 142/72. NEURO: Exam unchanged. Impression: Complicated Migraine (most likely vertebrobasilar migraine with vertigo) Diabetic peripheral neuropathy with associated dysautonomi Restless Limbs Syndrome Suggest: Await ESR, CRP, B12, TSH, A1c, Iron panel Sumatriptan 50-100 mg prn for migraine Neuro f/u as outpatient for Rx for Migraine prophylaxis, etc. Thank you very much, James Liao MD
--- NOTE | 2019-01-13 11:17 | PN ---
Progress Note, Physician Chief Complaint: Headache Chest pain History of Present Illness: NAD feels fatigued States she has been really stressed and anxious lately because she has to find new housing Chest pain and headache resolved Both daughters have migraine headaches Seen by cardiology and neurology - Current Medication List Current Medications: Active Medications Duloxetine HCl (Cymbalta -) 30 mg PO DAILY [facility] Last Admin: 01/13/19 09:01 Dose: 30 mg Folic Acid (Folic Acid -) 1 mg PO DAILY [facility] Last Admin: 01/13/19 09:01 Dose: 1 mg Heparin Sodium (Porcine) (Heparin -) 5,000 unit SQ BID [facility] Last Admin: 01/13/19 09:01 Dose: 5,000 unit Losartan Potassium (Cozaar -) 50 mg PO DAILY [facility] Last Admin: 01/13/19 09:01 Dose: 50 mg Non-Formulary Medication (Dapagliflozin Propanediol [Farxiga]) 5 mg PO DAILY [facility] Non-Formulary Medication (Insulin Degludec [Tresiba Flextouch U-100]) 50 unit SQ BID [facility] Rosuvastatin Calcium (Crestor -) 5 mg PO HS [facility] Last Admin: 01/12/19 22:52 Dose: 5 mg Sumatriptan Succinate (Imitrex -) 50 mg PO ONCE [facility] Last Admin: 01/12/19 17:49 Dose: Not Given Sumatriptan Succinate (Imitrex -) 50 mg PO PRN PRN PRN Reason: HEADACHE Last Admin: 01/12/19 22:53 Dose: 50 mg - Objective Vital Signs: Vital Signs Temperature 98.0 F 01/13/19 08:39 Pulse Rate 72 01/13/19 08:39 Respiratory Rate 18 01/13/19 08:40 Blood Pressure 137/68 01/13/19 08:39 O2 Sat by Pulse Oximetry (%) 98 01/13/19 08:40 Constitutional: Yes: Well Nourished, No Distress, Anxious Cardiovascular: Yes: Regular Rate and Rhythm Respiratory: Yes: Regular Gastrointestinal: Yes: Normal Bowel Sounds Genitourinary: Yes: WNL Musculoskeletal: Yes: WNL Extremities: Yes: WNL Edema: No Peripheral Pulses WNL: Yes Neurological: Yes: Alert, Oriented Psychiatric: Yes: Alert, Oriented Labs: CBC, BMP 01/12/19 05:20 01/13/19 05:56 INR, PTT INR 1.04 (0.83-1.09) 01/11/19 17:11 Problem List - Problems (1) Anxiety and depression Assessment/Plan: -Increase cymbalta to 60 mg po daily -F/U o/p with me Code(s): F41.9 - ANXIETY DISORDER, UNSPECIFIED; F32.9 - MAJOR DEPRESSIVE DISORDER, SINGLE EPISODE, UNSPECIFIED (2) Chest pain Assessment/Plan: -resolved -Seen by cardiology -No ACS -Tele monitor-no events -Troponin is negative x3 -Echocardiogram 01/12/19 is NL LV and RV function with mild LVH Code(s): R07.9 - CHEST PAIN, UNSPECIFIED Qualifiers: Chest pain type: unspecified Qualified Code(s): R07.9 - Chest pain, unspecified (3) Diabetes Assessment/Plan: -A1C added -BGM AC HS -Tresiba o/p -Diabetic low sodium diet Code(s): E11.9 - TYPE 2 DIABETES MELLITUS WITHOUT COMPLICATIONS Qualifiers: Diabetes mellitus type: type 2 (4) HTN (hypertension) Assessment/Plan: -resolved -2/2 to pain? Code(s): I10 - ESSENTIAL (PRIMARY) HYPERTENSION (5) Headache Assessment/Plan: -migraine? -Imitrex PRN -Seen by neurology -CT head negative Code(s): R51 - HEADACHE Assessment/Plan see problem list
[2019-01-13 13:40] LABS: IRON SERUM 84 ug/dL (50-175); TOTAL IRON BINDING CAPACITY 324 ug/dL (250-450)
== END 2019-01-13 13:45 | disposition home or self-care (01) | DRG 103 ==
LOC: JER 15:38 → JERBED 22:16 → J4W 01-12 00:10
PROVIDERS: ADMIT Family Medicine; ATTEND Family Medicine
DX: G43.109 Migraine with aura, not intractable, without status migrainosus (principal); I10 Essential (primary) hypertension; E78.5 Hyperlipidemia, unspecified; R07.9 Chest pain, unspecified; E66.9 Obesity, unspecified; G25.81 Restless legs syndrome; M06.9 Rheumatoid arthritis, unspecified; Z79.4 Long term (current) use of insulin; E11.43 Type 2 diabetes mellitus with diabetic autonomic (poly)neuropathy; F41.9 Anxiety disorder, unspecified; Z68.25 Body mass index [BMI] 25.0-25.9, adult
CPT/HCPCS: 36415; 70450-TC; 71045-TC-FY; 80048; 80053; 80061; 82550; 82607; 82728; 82962; 83036; 83540; 83550; 83721; 84484; 85025; 85027; 85610; 85651; 85730; 86140; 93005; 93010; 93306-TC; 99285-25; J1644

== ENCOUNTER 2023-04-09 15:43 | Observation (INO) | payer OTHER, BC ==
[2023-04-09 15:50] VITALS: BMI 25.6
[2023-04-09] MEDS ORDERED: ACETAMINOPHEN 1000 MG/100 ML BAG IVPB ONE (16:51)
[2023-04-09] MEDS ORDERED: SODIUM CHLORIDE 0.9% 500 ML INFUS.BAG IV ONE (16:51)
[2023-04-09] MEDS ORDERED: ACETAMINOPHEN INJECTION 100 ML IVPB ONE (17:54)
[2023-04-09 18:39] LABS: PH,URINE 5.5 (5.0-8.0); URINE APPEARANCE CLOUDY; URINE BILIRUBIN NEGATIVE (NEGATIVE); URINE COLOR YELLOW; URINE GLUCOSE (UA) 3+ (NEGATIVE); URINE KETONE NEGATIVE (NEGATIVE); URINE LEUK ESTERASE NEGATIVE (NEGATIVE); URINE NITRITE NEGATIVE (NEGATIVE); URINE PROTEIN NEGATIVE (NEGATIVE)
[2023-04-09 18:40] LABS: BASO % 0.2 % (0-2.0); EOS % 0.7 % (0-4.5); HEMATOCRIT 45.8 % (32.4-45.2); HEMOGLOBIN 14.7 GM/dL (10.7-15.3); LYMPH % 17.6 % (8-40); MCH 29.9 pg (25.7-33.7); MCHC 32.2 g/dl (32.0-36.0); MEAN CELL VOLUME 92.9 fl (80-96); MEAN PLT VOLUME 8.8 fl (7.5-11.1); MONO % 4.6 % (3.8-10.2); NEUT % 76.9 % (42.8-82.8); PLATELET COUNT 207 10^3/uL (134-434); RBC 4.93 M/mm3 (3.60-5.2); RDW 15.5 % (11.6-15.6); WHITE BLOOD COUNT 6.9 K/mm3 (4.0-10.0)
[2023-04-09 19:10] LABS: POTASSIUM 3.8 mmol/L (3.5-5.1)
[2023-04-09 19:11] LABS: CALCIUM 8.9 mg/dL (8.5-10.1)
[2023-04-09 19:12] LABS: ALBUMIN 3.7 g/dl (3.4-5.0); BLOOD UREA NITROGEN 13.2 mg/dL (7-18); MAGNESIUM 2.4 mg/dL (1.8-2.4)
[2023-04-09 19:15] LABS: CREATININE 0.8 mg/dL (0.55-1.3)
[2023-04-09 19:17] LABS: BILIRUBIN,TOTAL 0.4 mg/dL (0.2-1)
[2023-04-09 20:08] LABS: INR 1.2 (0.83-1.09); PROTHROMBIN TIME (PATIENT) 13.9 SEC (9.7-13.0)
[2023-04-10] MEDS: SODIUM CHLORIDE 1,000 ML IV SCH (03:03)
[2023-04-10 07:46] LABS: BASO % 0.5 % (0-2.0); EOS % 1.6 % (0-4.5); HEMOGLOBIN 13.4 GM/dL (10.7-15.3); LYMPH % 31.2 % (8-40); MCH 30.1 pg (25.7-33.7); MCHC 32.6 g/dl (32.0-36.0); MEAN CELL VOLUME 92.4 fl (80-96); MONO % 6.8 % (3.8-10.2); NEUT % 59.9 % (42.8-82.8); PLATELET COUNT 176 10^3/uL (134-434); RBC 4.44 M/mm3 (3.60-5.2); RDW 15.3 % (11.6-15.6); WHITE BLOOD COUNT 5.1 K/mm3 (4.0-10.0)
[2023-04-10 09:00] LABS: BLOOD UREA NITROGEN 10.3 mg/dL (7-18); CALCIUM 8.3 mg/dL (8.5-10.1); CREATININE 0.5 mg/dL (0.55-1.3); POTASSIUM 3.8 mmol/L (3.5-5.1)
[2023-04-10] MEDS ORDERED: PATIENT'S OWN MEDICATION (NON-FORMULARY) (Dapagliflozin Propanediol 5 MG Tablet) PO SCH (10:00)
[2023-04-10] MEDS ORDERED: FLU VACCINE (FLULAVAL) PF 60 MCG/0.5 ML SYRINGE 2023-2024 IM ONE (10:00)
[2023-04-10] MEDS: ACETAMINOPHEN 325 MG TABLET (FP) PO PRN (21:30)
[2023-04-10] MEDS ORDERED: ATORVASTATIN CA 20 MG TABLET (FP) PO SCH (22:00)
[2023-04-11] MEDS: SODIUM CHLORIDE 1,000 ML IV SCH (07:10)
[2023-04-11] MEDS: ACETAMINOPHEN 325 MG TABLET (FP) PO PRN (09:48)
[2023-04-11 11:28] VITALS: BP 119/61; PULSE 72; RESP 16; TEMP 98.3
== END 2023-04-11 15:15 | disposition home or self-care (01) ==
LOC: JER 15:43 → JERBED 20:55 → J4W 04-10 01:31
PROVIDERS: ADMIT Internal Medicine; ATTEND Family Medicine
PROC: 3E033NZ Introduction of Analgesics, Hypnotics, Sedatives into Peripheral Vein, Percutaneous Approach (ICD-10-PCS; principal; 2023-04-09)
PROC: 3E023GC Introduction of Other Therapeutic Substance into Muscle, Percutaneous Approach (ICD-10-PCS; 2023-04-09)
PROC: 3E0337Z Introduction of Electrolytic and Water Balance Substance into Peripheral Vein, Percutaneous Approach (ICD-10-PCS; 2023-04-09)
DX: S09.90XA Unspecified injury of head, initial encounter (principal); W20.8XXA Other cause of strike by thrown, projected or falling object, initial encounter; Y93.84 Activity, sleeping; Y92.003 Bedroom of unspecified non-institutional (private) residence as the place of occurrence of the external cause; R26.0 Ataxic gait; Z79.01 Long term (current) use of anticoagulants; E78.5 Hyperlipidemia, unspecified; I10 Essential (primary) hypertension; E11.9 Type 2 diabetes mellitus without complications; M06.9 Rheumatoid arthritis, unspecified; Z88.8 Allergy status to other drugs, medicaments and biological substances; Z91.013 Allergy to seafood; Z85.118 Personal history of other malignant neoplasm of bronchus and lung; Z87.891 Personal history of nicotine dependence; Z23 Encounter for immunization
CPT/HCPCS: 36415; 70450-TC; 70496-TC; 70498-TC; 70551-TC; 71045-TC-FY; 72125-TC; 80048; 80053; 81003; 82962; 83036; 83735; 84443; 85025; 85610; 85730; 87086; 90686; 93005; 93010; 96361; 96372; 96374; 97116-GP; 97162-GP; 99285-25; G0008; G0378; Q9967

== ENCOUNTER 2023-06-05 12:20 | Inpatient (IN) | payer OTHER, BC ==
[2023-06-05 12:41] VITALS: BMI 24.8
[2023-06-05] MEDS ORDERED: ACETAMINOPHEN 1000 MG/100 ML BAG IVPB ONE (13:21)
[2023-06-05] MEDS ORDERED: METOCLOPRAMIDE HCL INJECTION 10 MG/2 ML VIAL IVPB ONE (13:21)
[2023-06-05] MEDS ORDERED: SODIUM CHLORIDE 0.9% 500 ML INFUS.BAG IV ONE (13:21)
[2023-06-05] MEDS ORDERED: ACETAMINOPHEN INJECTION 100 ML IVPB ONE (13:45)
[2023-06-05] MEDS ORDERED: METOCLOPRAMIDE HCL INJECTION 10 MG/2 ML VIAL ONE (13:45)
[2023-06-05 14:02] LABS: BASO % 0.2 % (0-2.0); EOS % 0.4 % (0-4.5); HEMATOCRIT 43.7 % (32.4-45.2); HEMOGLOBIN 14.5 GM/dL (10.7-15.3); INR 1.29 (0.83-1.09); LYMPH % 14.3 % (8-40); MCHC 33.1 g/dl (32.0-36.0); MEAN CELL VOLUME 90.7 fl (80-96); MEAN PLT VOLUME 8.5 fl (7.5-11.1); MONO % 4.6 % (3.8-10.2); NEUT % 80.5 % (42.8-82.8); PLATELET COUNT 191 10^3/uL (134-434); PROTHROMBIN TIME (PATIENT) 14.9 SEC (9.7-13.0); RBC 4.82 M/mm3 (3.60-5.2); RDW 14.4 % (11.6-15.6); WHITE BLOOD COUNT 6.5 K/mm3 (4.0-10.0)
[2023-06-05 14:17] LABS: POTASSIUM 3.5 mmol/L (3.5-5.1)
[2023-06-05 14:18] LABS: CALCIUM 9.3 mg/dL (8.5-10.1)
[2023-06-05 14:19] LABS: ALBUMIN 3.6 g/dl (3.4-5.0)
[2023-06-05 14:20] LABS: BLOOD UREA NITROGEN 10.4 mg/dL (7-18)
[2023-06-05 14:22] LABS: CREATININE 0.7 mg/dL (0.55-1.3)
[2023-06-05 14:24] LABS: TOT PROT 6.8 g/dl (6.4-8.2)
[2023-06-05 14:25] LABS: BILIRUBIN,TOTAL 0.6 mg/dL (0.2-1)
[2023-06-05 14:59] LABS: PH,URINE 6.5 (5.0-8.0); URINE APPEARANCE CLEAR; URINE BILIRUBIN NEGATIVE (NEGATIVE); URINE COLOR YELLOW; URINE GLUCOSE (UA) 3+ (NEGATIVE); URINE KETONE NEGATIVE (NEGATIVE); URINE LEUK ESTERASE NEGATIVE (NEGATIVE); URINE NITRITE NEGATIVE (NEGATIVE); URINE PROTEIN NEGATIVE (NEGATIVE)
[2023-06-05] MEDS ORDERED: AZITHROMYCIN IVPB 500 MG in DEXTROSE 5%-WATER - 250 ML IVPB ONE (15:50)
[2023-06-05] MEDS ORDERED: CEFTRIAXONE 1,000 MG in DEXTROSE 5%-WATER - 50 ML IVPB ONE (15:50)
[2023-06-05] MEDS ORDERED: CEFTRIAXONE 1 GM/50 ML BAG ONE (16:34)
[2023-06-05] MEDS ORDERED: AZITHROMYCIN IVPB 500 MG/250 ML BAG IVPB ONE (18:21)
[2023-06-05] MEDS: D5-1/2NS+20 MEQ KCL - 20 MEQ/1,000 ML INFUS.BAG IV SCH (18:35)
[2023-06-05] MEDS: INSULIN SLIDING SCALE (NOVOLOG) 1 VIAL SQ SCH (21:41)
[2023-06-05] MEDS ORDERED: ROSUVASTATIN CA 5 MG TABLET ONE (22:02)
[2023-06-05] MEDS ORDERED: HEPARIN NA (PORCINE) 5,000 UNITS/ML 1ML VIAL ONE (22:03)
[2023-06-05] MEDS: HEPARIN NA (PORCINE) 5,000 UNITS/ML 1ML VIAL SQ SCH (22:09)
[2023-06-05] MEDS: ROSUVASTATIN CA 5 MG TABLET PO SCH (22:09)
[2023-06-06] MEDS: D5-1/2NS+20 MEQ KCL - 20 MEQ/1,000 ML INFUS.BAG IV SCH ×2 (02:48→22:30)
[2023-06-06] MEDS: INSULIN SLIDING SCALE (NOVOLOG) 1 VIAL SQ SCH ×4 (06:30→22:24)
[2023-06-06] MEDS ORDERED: ACETAMINOPHEN 325 MG TABLET (FP) PO ONE (06:43)
[2023-06-06] MEDS ORDERED: ACETAMINOPHEN 325 MG TABLET (FP) ONE (06:45)
[2023-06-06 06:48] LABS: BASO % 0.3 % (0-2.0); EOS % 1.6 % (0-4.5); HEMATOCRIT 38.9 % (32.4-45.2); HEMOGLOBIN 13.1 GM/dL (10.7-15.3); LYMPH % 23.1 % (8-40); MCH 30.6 pg (25.7-33.7); MCHC 33.6 g/dl (32.0-36.0); MEAN CELL VOLUME 91.1 fl (80-96); MEAN PLT VOLUME 8.5 fl (7.5-11.1); PLATELET COUNT 159 10^3/uL (134-434); RBC 4.27 M/mm3 (3.60-5.2); RDW 14.4 % (11.6-15.6); WHITE BLOOD COUNT 5.8 K/mm3 (4.0-10.0)
[2023-06-06 06:59] LABS: CHLORIDE 108 mmol/L (98-107); POTASSIUM 3.4 mmol/L (3.5-5.1); SODIUM 140 mmol/L (136-145)
[2023-06-06 07:03] LABS: BLOOD UREA NITROGEN 13.4 mg/dL (7-18); CALCIUM 8.3 mg/dL (8.5-10.1); GLUCOSE,RANDOM 122 mg/dL (74-106)
[2023-06-06 07:06] LABS: CREATININE 0.5 mg/dL (0.55-1.3); SGOT/AST 20 U/L (15-37)
[2023-06-06 07:07] LABS: ALBUMIN 3.1 g/dl (3.4-5.0); ANION GAP 6 mmol/L (4-13); BILIRUBIN,TOTAL 0.3 mg/dL (0.2-1); CO2 26 mmol/L (21-32)
[2023-06-06 07:08] LABS: TOT PROT 5.9 g/dl (6.4-8.2)
[2023-06-06 07:22] LABS: ALK PHOS 102 U/L (45-117); SGPT/ALT 19 U/L (13-61)
[2023-06-06] MEDS ORDERED: POTASSIUM CHLORIDE ORAL LIQUID 20 MEQ/15 ML PO ONE (08:50)
[2023-06-06] MEDS: ASPIRIN COATED 81 MG TABLET.EC PO SCH (09:20)
[2023-06-06] MEDS: HEPARIN NA (PORCINE) 5,000 UNITS/ML 1ML VIAL SQ SCH ×2 (09:20→22:12)
[2023-06-06] MEDS ORDERED: PATIENT'S OWN MEDICATION (NON-FORMULARY) (Dapagliflozin Propanediol 5 MG Tablet) PO SCH (10:00)
[2023-06-06] MEDS: CEFTRIAXONE 1 GM in DEXTROSE 5%-WATER - 50 ML IVPB SCH (14:55)
[2023-06-06] MEDS: AZITHROMYCIN IVPB 500 MG/250 ML BAG IVPB SCH (14:56)
[2023-06-06] MEDS: ROSUVASTATIN CA 5 MG TABLET PO SCH (22:12)
[2023-06-07] MEDS: INSULIN SLIDING SCALE (NOVOLOG) 1 VIAL SQ SCH ×3 (06:48→17:08)
[2023-06-07 09:40] LABS: URINE BARBITURATES NEGATIVE (NEGATIVE)
[2023-06-07 09:41] LABS: METHADONE, UR NEGATIVE (NEGATIVE); PHENCYCLIDINE,URINE NEGATIVE (NEGATIVE); URINE AMPHETAMINES NEGATIVE (NEGATIVE); URINE BENZODIAZEPINES NEGATIVE (NEGATIVE)
[2023-06-07 09:42] LABS: OPIATES, URI NEGATIVE (NEGATIVE)
[2023-06-07 09:51] LABS: COCAINE, UR NEGATIVE (NEGATIVE)
[2023-06-07] MEDS: CEFTRIAXONE 1 GM in DEXTROSE 5%-WATER - 50 ML IVPB SCH (10:12)
[2023-06-07] MEDS: HEPARIN NA (PORCINE) 5,000 UNITS/ML 1ML VIAL SQ SCH ×2 (10:13→22:32)
[2023-06-07] MEDS: ASPIRIN COATED 81 MG TABLET.EC PO SCH (10:13)
[2023-06-07 10:38] LABS: ARTERIAL BLD GAS O2 SATURATION 96.5 % (95-98); ARTERIAL BLOOD GAS PO2 82.2 mmHg (80-100); ARTERIAL BLOOD GAS pH 7.451 (7.350-7.450)
[2023-06-07 10:40] LABS: ALLENS TEST POSITIVE
[2023-06-07 11:19] LABS: BASO % 0.3 % (0-2.0); HEMATOCRIT 39.8 % (32.4-45.2); HEMOGLOBIN 13.2 GM/dL (10.7-15.3); LYMPH % 20.1 % (8-40); MCH 30.1 pg (25.7-33.7); MCHC 33.1 g/dl (32.0-36.0); MEAN CELL VOLUME 90.8 fl (80-96); MEAN PLT VOLUME 8.9 fl (7.5-11.1); MONO % 5.7 % (3.8-10.2); NEUT % 72.9 % (42.8-82.8); PLATELET COUNT 156 10^3/uL (134-434); RBC 4.38 M/mm3 (3.60-5.2); RDW 14.5 % (11.6-15.6); WHITE BLOOD COUNT 5.2 K/mm3 (4.0-10.0)
[2023-06-07 11:39] LABS: POTASSIUM 3.9 mmol/L (3.5-5.1)
[2023-06-07 11:41] LABS: ALBUMIN 3.1 g/dl (3.4-5.0); BLOOD UREA NITROGEN 11.7 mg/dL (7-18); CALCIUM 8.7 mg/dL (8.5-10.1)
[2023-06-07 11:44] LABS: CREATININE 0.5 mg/dL (0.55-1.3)
[2023-06-07 11:45] LABS: BILIRUBIN,TOTAL 0.2 mg/dL (0.2-1); TOT PROT 6.1 g/dl (6.4-8.2)
[2023-06-07] MEDS: AZITHROMYCIN IVPB 500 MG/250 ML BAG IVPB SCH (14:42)
[2023-06-07] MEDS: D5-1/2NS+20 MEQ KCL - 20 MEQ/1,000 ML INFUS.BAG IV SCH (17:08)
[2023-06-07] MEDS: ROSUVASTATIN CA 5 MG TABLET PO SCH (22:32)
[2023-06-08] MEDS: INSULIN SLIDING SCALE (NOVOLOG) 1 VIAL SQ SCH ×4 (06:40→17:35)
[2023-06-08] MEDS: ASPIRIN COATED 81 MG TABLET.EC PO SCH (10:23)
[2023-06-08] MEDS: CEFTRIAXONE 1 GM in DEXTROSE 5%-WATER - 50 ML IVPB SCH (10:24)
[2023-06-08] MEDS: HEPARIN NA (PORCINE) 5,000 UNITS/ML 1ML VIAL SQ SCH (10:24)
[2023-06-08] MEDS: AZITHROMYCIN IVPB 500 MG/250 ML BAG IVPB SCH (14:17)
[2023-06-09] MEDS: INSULIN SLIDING SCALE (NOVOLOG) 1 VIAL SQ SCH ×5 (00:24→22:16)
[2023-06-09] MEDS: HEPARIN NA (PORCINE) 5,000 UNITS/ML 1ML VIAL SQ SCH ×3 (00:25→22:16)
[2023-06-09] MEDS: ROSUVASTATIN CA 5 MG TABLET PO SCH ×2 (00:25→22:16)
[2023-06-09] MEDS: CEFTRIAXONE 1 GM in DEXTROSE 5%-WATER - 50 ML IVPB SCH (09:56)
[2023-06-09] MEDS: ASPIRIN COATED 81 MG TABLET.EC PO SCH (09:56)
[2023-06-09] MEDS ORDERED: ACETAMINOPHEN 325 MG TABLET (FP) PO PRN (13:35)
[2023-06-09] MEDS: AZITHROMYCIN IVPB 500 MG/250 ML BAG IVPB SCH (14:01)
[2023-06-10] MEDS: INSULIN SLIDING SCALE (NOVOLOG) 1 VIAL SQ SCH ×3 (06:46→17:01)
[2023-06-10 07:15] LABS: BASO % 0.3 % (0-2.0); EOS % 1.3 % (0-4.5); HEMATOCRIT 39.4 % (32.4-45.2); HEMOGLOBIN 12.9 GM/dL (10.7-15.3); MCH 30.2 pg (25.7-33.7); MCHC 32.8 g/dl (32.0-36.0); MEAN PLT VOLUME 9.3 fl (7.5-11.1); MONO % 6.3 % (3.8-10.2); NEUT % 68.1 % (42.8-82.8); PLATELET COUNT 155 10^3/uL (134-434); RBC 4.28 M/mm3 (3.60-5.2); RDW 14.3 % (11.6-15.6); WHITE BLOOD COUNT 5.3 K/mm3 (4.0-10.0)
[2023-06-10 08:13] LABS: ALBUMIN 3.2 g/dl (3.4-5.0); BLOOD UREA NITROGEN 14.8 mg/dL (7-18)
[2023-06-10 08:16] LABS: CREATININE 0.6 mg/dL (0.55-1.3)
[2023-06-10 08:18] LABS: BILIRUBIN,TOTAL 0.2 mg/dL (0.2-1); TOT PROT 6.2 g/dl (6.4-8.2)
[2023-06-10] MEDS: HEPARIN NA (PORCINE) 5,000 UNITS/ML 1ML VIAL SQ SCH (09:32)
[2023-06-10] MEDS: ASPIRIN COATED 81 MG TABLET.EC PO SCH (09:32)
[2023-06-10 09:39] VITALS: RESP 18
[2023-06-10 15:41] VITALS: BP 118/58; PULSE 78; TEMP 98.6
== END 2023-06-10 18:28 | disposition home or self-care (01) | DRG 206 ==
LOC: JER 12:20 → JERBED 14:11 → OBSVTOIN 17:06 → J4W 06-06 14:16
PROVIDERS: ADMIT Family Medicine; ATTEND Family Medicine
DX: J70.0 Acute pulmonary manifestations due to radiation (principal); C34.90 Malignant neoplasm of unspecified part of unspecified bronchus or lung; I10 Essential (primary) hypertension; E78.5 Hyperlipidemia, unspecified; E11.9 Type 2 diabetes mellitus without complications; M06.9 Rheumatoid arthritis, unspecified; F41.8 Other specified anxiety disorders; G43.909 Migraine, unspecified, not intractable, without status migrainosus
CPT/HCPCS: 0241U-QW; 36415; 36600; 70450-TC; 70552-TC; 71045-TC-FY; 71260-TC; 80053; 80061; 80307; 81003; 82140; 82550; 82803; 82962; 83036; 83605; 84443; 84484; 85025; 85610; 85730; 86850; 86900; 86901; 87040; 87899; 93005; 93010; 99285-25; G0378; J1644; Q9967

== ENCOUNTER 2023-06-24 14:47 | Emergency (ER) | payer OTHER, BC ==
[2023-06-24 15:04] VITALS: BP 118/69; PULSE 100; RESP 18; TEMP 98.8; BMI 24.7
[2023-06-24] MEDS ORDERED: ACETAMINOPHEN 1000 MG/100 ML BAG IVPB ONE (15:43)
[2023-06-24] MEDS ORDERED: METOCLOPRAMIDE HCL INJECTION 10 MG/2 ML VIAL IVPUSH ONE (15:43)
[2023-06-24] MEDS ORDERED: ACETAMINOPHEN INJECTION 100 ML IVPB ONE (15:56)
[2023-06-24] MEDS ORDERED: METOCLOPRAMIDE HCL INJECTION 10 MG/2 ML VIAL ONE (15:56)
[2023-06-24 16:24] LABS: BASO % 0.4 % (0-2.0); EOS % 0.7 % (0-4.5); HEMOGLOBIN 14.9 GM/dL (10.7-15.3); MCH 30.3 pg (25.7-33.7); MCHC 33.2 g/dl (32.0-36.0); MEAN CELL VOLUME 91.1 fl (80-96); MEAN PLT VOLUME 8.6 fl (7.5-11.1); MONO % 6.5 % (3.8-10.2); NEUT % 81.4 % (42.8-82.8); PLATELET COUNT 185 10^3/uL (134-434); RBC 4.93 M/mm3 (3.60-5.2); RDW 14.3 % (11.6-15.6); WHITE BLOOD COUNT 6.1 K/mm3 (4.0-10.0)
[2023-06-24 16:30] LABS: INR 1.2 (0.83-1.09); PROTHROMBIN TIME (PATIENT) 13.9 SEC (9.7-13.0)
[2023-06-24 16:33] LABS: ACTIVATED PTT 27.4 SECONDS (25.2-36.5)
[2023-06-24 16:46] LABS: POTASSIUM 3.8 mmol/L (3.5-5.1)
[2023-06-24 16:48] LABS: ALBUMIN 3.7 g/dl (3.4-5.0); CALCIUM 9.2 mg/dL (8.5-10.1)
[2023-06-24 16:49] LABS: BLOOD UREA NITROGEN 12.4 mg/dL (7-18); MAGNESIUM 2.1 mg/dL (1.8-2.4)
[2023-06-24 16:51] LABS: CREATININE 0.7 mg/dL (0.55-1.3)
[2023-06-24 16:53] LABS: BILIRUBIN,TOTAL 0.5 mg/dL (0.2-1); TOT PROT 7.3 g/dl (6.4-8.2)
[2023-06-24] MEDS ORDERED: SODIUM CHLORIDE 0.9% 1000 ML INFUS.BAG IV ONE (17:43)
== END 2023-06-24 18:56 | disposition home or self-care (01) ==
LOC: JER 14:47
PROC: 3E033NZ Introduction of Analgesics, Hypnotics, Sedatives into Peripheral Vein, Percutaneous Approach (ICD-10-PCS; principal; 2023-06-24)
PROC: 3E033GC Introduction of Other Therapeutic Substance into Peripheral Vein, Percutaneous Approach (ICD-10-PCS; 2023-06-24)
DX: R42 Dizziness and giddiness (principal); R51.9 Headache, unspecified; R07.9 Chest pain, unspecified; Z20.822 Contact with and (suspected) exposure to COVID-19
CPT/HCPCS: 0241U-QW; 36415; 71045-TC-FY; 80053; 83735; 84484; 85025; 85610; 85730; 93005; 93010; 99285-25

== ENCOUNTER 2023-07-26 14:40 | Observation (INO) | payer OTHER, BC ==
[2023-07-26 14:49] VITALS: BMI 25.3
[2023-07-26 15:30] LABS: BASO % 0.3 % (0-2.0); EOS % 0.7 % (0-4.5); HEMATOCRIT 42.5 % (32.4-45.2); LYMPH % 16.9 % (8-40); MEAN PLT VOLUME 8.9 fl (7.5-11.1); MONO % 6.3 % (3.8-10.2); NEUT % 75.8 % (42.8-82.8); PLATELET COUNT 188 10^3/uL (134-434); RBC 4.67 M/mm3 (3.60-5.2); RDW 14.8 % (11.6-15.6); WHITE BLOOD COUNT 6.4 K/mm3 (4.0-10.0)
[2023-07-26] MEDS ORDERED: ASPIRIN 81 MG CHEWABLE TABLETS ONE (15:35)
[2023-07-26 15:36] LABS: INR 1.26 (0.83-1.09); PROTHROMBIN TIME (PATIENT) 14.6 SEC (9.7-13.0)
[2023-07-26] MEDS: ASPIRIN 81 MG CHEWABLE TABLETS PO ONE (15:37)
[2023-07-26 15:39] LABS: ACTIVATED PTT 31.5 SECONDS (25.2-36.5)
[2023-07-26 15:53] LABS: POTASSIUM 4.1 mmol/L (3.5-5.1)
[2023-07-26 15:56] LABS: ALBUMIN 3.5 g/dl (3.4-5.0); BLOOD UREA NITROGEN 10.2 mg/dL (7-18)
[2023-07-26 15:59] LABS: CREATININE 0.8 mg/dL (0.55-1.3)
[2023-07-26 16:01] LABS: BILIRUBIN,TOTAL 0.3 mg/dL (0.2-1); TOT PROT 6.9 g/dl (6.4-8.2)
[2023-07-26] MEDS ORDERED: MECLIZINE HCL 25 MG TABLET (FP) ONE (19:21)
[2023-07-26] MEDS: MECLIZINE HCL 25 MG TABLET (FP) PO ONE (19:26)
[2023-07-26] MEDS ORDERED: ROSUVASTATIN CA 5 MG TABLET ONE (22:11)
[2023-07-26] MEDS: APIXABAN 5 MG TABLET PO SCH (22:14)
[2023-07-26] MEDS: ROSUVASTATIN CA 5 MG TABLET PO SCH (22:14)
[2023-07-27 07:18] LABS: BASO % 0.4 % (0-2.0); EOS % 1.3 % (0-4.5); HEMATOCRIT 40.5 % (32.4-45.2); HEMOGLOBIN 13.1 GM/dL (10.7-15.3); LYMPH % 27.7 % (8-40); MCH 29.4 pg (25.7-33.7); MCHC 32.3 g/dl (32.0-36.0); MEAN CELL VOLUME 91.2 fl (80-96); MEAN PLT VOLUME 9.1 fl (7.5-11.1); MONO % 7.7 % (3.8-10.2); NEUT % 62.9 % (42.8-82.8); PLATELET COUNT 185 10^3/uL (134-434); RBC 4.44 M/mm3 (3.60-5.2); RDW 14.9 % (11.6-15.6); WHITE BLOOD COUNT 5.3 K/mm3 (4.0-10.0)
[2023-07-27 07:21] LABS: POTASSIUM 3.8 mmol/L (3.5-5.1)
[2023-07-27 07:23] LABS: CALCIUM 9.1 mg/dL (8.5-10.1)
[2023-07-27 07:24] LABS: BLOOD UREA NITROGEN 11.8 mg/dL (7-18)
[2023-07-27 07:27] LABS: CREATININE 0.6 mg/dL (0.55-1.3)
[2023-07-27 09:51] VITALS: RESP 18
[2023-07-27] MEDS: ACETAMINOPHEN 325 MG TABLET (FP) PO PRN (15:30)
[2023-07-27] MEDS: DIVALPROEX SODIUM 250 MG TABLET E.C. PO SCH (21:31)
[2023-07-28 14:56] VITALS: BP 116/52; PULSE 89; TEMP 97.7
== END 2023-07-28 17:19 | disposition home or self-care (01) ==
LOC: JER 14:40 → INTOOBSV 19:22 → JERBED 19:22 → UNDOADMOB 19:22 → JERBED 20:06 → J4W 07-27 00:56 → JERBED 07-27 00:56 → J4W 07-27 00:56
PROVIDERS: ADMIT Internal Medicine; ATTEND Family Medicine
PROC: 3E033NZ Introduction of Analgesics, Hypnotics, Sedatives into Peripheral Vein, Percutaneous Approach (ICD-10-PCS; principal; 2023-07-26)
DX: R07.89 Other chest pain (principal); F41.8 Other specified anxiety disorders; E78.5 Hyperlipidemia, unspecified; I10 Essential (primary) hypertension; Z85.118 Personal history of other malignant neoplasm of bronchus and lung; R42 Dizziness and giddiness; E11.9 Type 2 diabetes mellitus without complications; K57.90 Diverticulosis of intestine, part unspecified, without perforation or abscess without bleeding; R94.31 Abnormal electrocardiogram [ECG] [EKG]; Z87.891 Personal history of nicotine dependence; F10.21 Alcohol dependence, in remission; Z92.21 Personal history of antineoplastic chemotherapy; Z88.8 Allergy status to other drugs, medicaments and biological substances; Z91.013 Allergy to seafood
CPT/HCPCS: 0241U-QW; 36415; 71045-TC-FY; 71275-TC; 80048; 80053; 84484; 85025; 85610; 85730; 93005; 93010; 96374; 99285-25; G0378

== ENCOUNTER 2024-02-14 12:22 | Inpatient (IN) | payer OTHER, BC ==
[2024-02-14 13:05] VITALS: BMI 24.7
[2024-02-14] MEDS ORDERED: ACETAMINOPHEN INJECTION 100 ML ONE (13:28)
[2024-02-14] MEDS: ACETAMINOPHEN 1000 MG/100 ML BAG IVPB ONE (13:53)
[2024-02-14] MEDS: LACTATED RINGERS SOLUTION 1000 ML INFUS.BAG IV ONE (13:53)
[2024-02-14 14:00] LABS: BASO % 0.2 % (0-2.0); EOS % 0.4 % (0-4.5); HEMATOCRIT 40.6 % (32.4-45.2); HEMOGLOBIN 13.5 GM/dL (10.7-15.3); LYMPH % 8.2 % (8-40); MCH 29.1 pg (25.7-33.7); MCHC 33.2 g/dl (32.0-36.0); MEAN CELL VOLUME 87.6 fl (80-96); MEAN PLT VOLUME 8.9 fl (7.5-11.1); MONO % 4.7 % (3.8-10.2); NEUT % 86.5 % (42.8-82.8); PLATELET COUNT 247 10^3/uL (134-434); RBC 4.63 M/mm3 (3.60-5.2); RDW 15.9 % (11.6-15.6); WHITE BLOOD COUNT 8.7 K/mm3 (4.0-10.0)
[2024-02-14 14:06] LABS: INR 1.06 (0.83-1.09)
[2024-02-14 14:09] LABS: ACTIVATED PTT 27.7 SECONDS (25.2-36.5)
[2024-02-14 14:18] LABS: POTASSIUM 4.2 mmol/L (3.5-5.1)
[2024-02-14 14:21] LABS: ALBUMIN 3.4 g/dl (3.4-5.0)
[2024-02-14 14:22] LABS: BLOOD UREA NITROGEN 15.1 mg/dL (7-18); MAGNESIUM 1.9 mg/dL (1.8-2.4)
[2024-02-14 14:25] LABS: CREATININE 0.5 mg/dL (0.55-1.3); PHOSPHOROUS 2.6 mg/dL (2.5-4.9)
[2024-02-14 14:26] LABS: BILIRUBIN,TOTAL 0.6 mg/dL (0.2-1); TOT PROT 6.7 g/dl (6.4-8.2)
[2024-02-14 15:17] LABS: HIV INTERPRETATION NEGATIVE (NEGATIVE)
[2024-02-14] MEDS ORDERED: DIPHTH,PERTUSS(ACELL),TET 0.5 ML DISP.SYRIN IM ONE (15:34)
[2024-02-14 15:42] LABS: PH,URINE 6.5 (5.0-8.0); URINE APPEARANCE CLEAR; URINE BILIRUBIN NEGATIVE (NEGATIVE); URINE COLOR YELLOW; URINE GLUCOSE (UA) 3+ (NEGATIVE); URINE KETONE TRACE (NEGATIVE); URINE LEUK ESTERASE NEGATIVE (NEGATIVE); URINE NITRITE NEGATIVE (NEGATIVE); URINE PROTEIN NEGATIVE (NEGATIVE); URINE UROBILINOGEN 0.2 mg/dL (0.2-1.0)
[2024-02-14] MEDS: DIPHTH,PERTUSS(ACELL),TET 0.5 ML DISP.SYRIN IM ONE (15:59)
[2024-02-14] MEDS: INSULIN ASPART SLIDING SCALE (NOVOLOG) 1 VIAL SQ SCH (21:14)
[2024-02-14] MEDS: DIVALPROEX SODIUM 250 MG TABLET E.C. PO SCH (21:14)
[2024-02-14] MEDS: ROSUVASTATIN CA 10 MG TABLET PO SCH (21:14)
[2024-02-14] MEDS: ACETAMINOPHEN 1000 MG/100 ML BAG IVPB PRN (22:34)
[2024-02-15 08:17] LABS: POTASSIUM 3.7 mmol/L (3.5-5.1)
[2024-02-15 08:18] LABS: BASO % 0.2 % (0-2.0); CALCIUM 8.7 mg/dL (8.5-10.1); EOS % 1.8 % (0-4.5); HEMATOCRIT 37.5 % (32.4-45.2); HEMOGLOBIN 12.6 GM/dL (10.7-15.3); LYMPH % 18.2 % (8-40); MCH 29.2 pg (25.7-33.7); MCHC 33.6 g/dl (32.0-36.0); MEAN CELL VOLUME 86.7 fl (80-96); MEAN PLT VOLUME 8.8 fl (7.5-11.1); MONO % 6.7 % (3.8-10.2); NEUT % 73.1 % (42.8-82.8); PLATELET COUNT 223 10^3/uL (134-434); RBC 4.32 M/mm3 (3.60-5.2); RDW 15.5 % (11.6-15.6); WHITE BLOOD COUNT 5.3 K/mm3 (4.0-10.0)
[2024-02-15 08:20] LABS: ALBUMIN 2.9 g/dl (3.4-5.0); BLOOD UREA NITROGEN 11.5 mg/dL (7-18)
[2024-02-15 08:25] LABS: BILIRUBIN,TOTAL 0.4 mg/dL (0.2-1); TOT PROT 5.7 g/dl (6.4-8.2)
[2024-02-15 08:33] LABS: CREATININE 0.5 mg/dL (0.55-1.3)
[2024-02-15] MEDS ORDERED: PATIENT'S OWN MEDICATION (NON-FORMULARY) (Dapagliflozin Propanediol 5 MG Tablet) PO SCH (10:00)
[2024-02-16] MEDS: traMADol HCL 50 MG TABLET PO ONE (02:12)
[2024-02-16] MEDS: oxyCODONE HCL 5 MG TABLET PO ONE ×2 (02:33→21:33)
[2024-02-16] MEDS: MELATONIN 5 MG TABLETS PO PRN (02:34)
[2024-02-16] MEDS: ACETAMINOPHEN 1000 MG/100 ML BAG IVPB SCH (08:40)
[2024-02-16] MEDS: INSULIN (LEVEMIR) 100 UNITS/ML UNITS SQ SCH ×2 (08:52→21:37)
[2024-02-17] MEDS: ACETAMINOPHEN 1000 MG/100 ML BAG IVPB SCH (03:21)
[2024-02-17] MEDS: oxyCODONE HCL 5 MG TABLET PO PRN (13:11)
[2024-02-18 13:54] LABS: BASO % 0.3 % (0-2.0); EOS % 0.8 % (0-4.5); HEMATOCRIT 40.5 % (32.4-45.2); HEMOGLOBIN 13.3 GM/dL (10.7-15.3); LYMPH % 13.3 % (8-40); MCH 28.9 pg (25.7-33.7); MCHC 32.9 g/dl (32.0-36.0); MEAN CELL VOLUME 87.8 fl (80-96); MEAN PLT VOLUME 9.9 fl (7.5-11.1); MONO % 4.9 % (3.8-10.2); NEUT % 80.7 % (42.8-82.8); PLATELET COUNT 274 10^3/uL (134-434); RBC 4.61 M/mm3 (3.60-5.2); RDW 15.7 % (11.6-15.6); WHITE BLOOD COUNT 8.2 K/mm3 (4.0-10.0)
[2024-02-18 14:18] LABS: POTASSIUM 4.3 mmol/L (3.5-5.1)
[2024-02-18 14:20] LABS: CALCIUM 9.2 mg/dL (8.5-10.1)
[2024-02-18 14:21] LABS: ALBUMIN 3.2 g/dl (3.4-5.0); BLOOD UREA NITROGEN 13.8 mg/dL (7-18)
[2024-02-18 14:24] LABS: CREATININE 0.7 mg/dL (0.55-1.3)
[2024-02-18 14:25] LABS: BILIRUBIN,TOTAL 0.3 mg/dL (0.2-1); TOT PROT 6.6 g/dl (6.4-8.2)
[2024-02-19] MEDS: LIDOCAINE 1%/EPI 1:100000 (20 ML MULTI DOSE VIAL) INF ONE (11:39)
[2024-02-19] MEDS: LIDOCAINE HCL 1%, 10 MG/ML (20ML VIAL) INF ONE (11:39)
[2024-02-19] MEDS ORDERED: LIDOCAINE HCL 1%, 10 MG/ML (20ML VIAL) ONE (11:47)
[2024-02-19] MEDS ORDERED: BUPIVACAINE HCL/PF 0.5% (5MG/ML) 10 ML VIAL ONE (11:48)
[2024-02-19 22:54] VITALS: RESP 18
[2024-02-20 12:33] VITALS: BP 141/78; PULSE 89; TEMP 98.6
== END 2024-02-20 12:00 | disposition home or self-care (01) | DRG 316 ==
LOC: JER 12:22 → JERBED 16:12 → J4S 19:32 → OBSVTOIN 02-16 11:52
PROVIDERS: ADMIT Family Medicine; ATTEND Family Medicine
PROC: 0JPT0WZ Removal of Totally Implantable Vascular Access Device from Trunk Subcutaneous Tissue and Fascia, Open Approach (ICD-10-PCS; principal; 2024-02-19 11:15)
DX: T82.868A Thrombosis due to vascular prosthetic devices, implants and grafts, initial encounter (principal); R55 Syncope and collapse; E11.9 Type 2 diabetes mellitus without complications; S00.03XA Contusion of scalp, initial encounter; Y83.9 Surgical procedure, unspecified as the cause of abnormal reaction of the patient, or of later complication, without mention of misadventure at the time of the procedure; E78.5 Hyperlipidemia, unspecified; I10 Essential (primary) hypertension; M06.9 Rheumatoid arthritis, unspecified; Z85.118 Personal history of other malignant neoplasm of bronchus and lung
CPT/HCPCS: 0241U-QW; 36415; 70450-TC; 71045-TC-FY; 72125-TC; 73030-TC-LT-FY; 73070-TC-LT-FY; 73110-TC-LT-FY; 80053; 81003; 82550; 82962; 83036; 83735; 84100; 84443; 84484; 85025; 85610; 85730; 86850; 86900; 86901; 87086; 87389; 88300-TC; 90715; 93005; 93010; 93306-TC; 93880-TC; 93971; 97116-GP; 97161-GP; 99285-25; G0378; J0131